=== PATIENT | male | born 1955 | race Caucasian/White ===

== ENCOUNTER 2020-02-07 11:00 | Emergency (ER) | payer BC, SELFPAY ==
[2020-02-07 11:41] VITALS: BP 122/85; PULSE 64; RESP 20; TEMP 36.7; O2SAT 100
--- NOTE | 2020-02-07 11:49 | ED.GENADULT ---
HPI - General Adult General Chief complaint: Eye Problems Stated complaint: fb left eye Time Seen by Provider: 02/07/20 11:49 Source: patient Mode of arrival: ambulatory Limitations: no limitations History of Present Illness HPI narrative: 64-year-old male patient presents to the [facility] with complaints of left eye pain and sensation of foreign body. Patient states that he has had this pain for about 2 days now. 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 Patient states he has tried flushing the eye multiple times. Patient states that he is not having any vision changes but does have a sensation of a foreign body to the eye with slight pain. Patient does wear glasses but denies wearing contacts. Related Data Home Medications Medication Instructions Recorded Confirmed amlodipine 10 mg DAILY 02/07/20 02/07/20 lisinopril 5 mg DAILY 02/07/20 02/07/20 rosuvastatin 10 mg DAILY 02/07/20 02/07/20 Allergies Allergy/AdvReac Type Severity Reaction Status Date / Time No Known Allergies Allergy Verified 09/12/16 14:46 Review of Systems Review of Systems: Narrative: CONSTITUTIONAL: Denies fever, chills, or sweats. EYES: Denies visual changes, positive left eye sensation of foreign body ENT: Denies rhinorrhea, congestion, sore throat, or otalgia. CARDIOVASCULAR: Denies chest pain, palpitations, or edema. RESPIRATORY: Denies cough or dyspnea. GASTROINTESTINAL: Denies abdominal pain, nausea, vomiting, or diarrhea. GENITOURINARY: Denies dysuria or hematuria. SKIN: Denies rash or itching. MUSCULOSKELETAL: Denies back pain, joint pain, or myalgia. NEUROLOGIC: Denies headache, numbness, or weakness. PSYCHIATRIC: Denies anxiety or depression. [facility] Family History Family History Father Family history of coronary artery disease Grandparent Diabetes mellitus Other Hypertension Social History Social History Smoking status: Never smoker Alcohol intake: current Gender identity (if verbalized by the patient): Male Comments At the time of my signature I agree with nursing past medical history, surgical, social, and family history. There is no relevant family history pertinent to the presenting complaint. Exam Narrative: Exam Narrative: GENERAL: Well-appearing, well-nourished, and in no acute distress. HEAD: Normocephalic, atraumatic. EYES: PERRLA and EOM intact without limitation or complaint of pain, no periorbital soft tissue swelling ,no erythema, warmth or tenderness noted, no obvious deformity. No crusting or swelling.clear tearing of left eye.No photophobia. No nystagmus No FB or lesion on lid eversion. Patient does have a small abrasion noted to the cornea at the 9:00 area., no obvious FB or hyphens/hypopyon. No injection to sclera. Lids and lashes clear. ENT: Nares clear, no rhinorrhea or epistaxis. Mucous membranes moist. NECK: Supple. No lymphadenopathy CHEST: Clear to auscultation. No respiratory distress. HEART: Regular rate and rhythm. No murmur heard. Normal peripheral pulses. ABDOMEN: Soft, nontender, nondistended, normal active bowel sounds. EXTREMITIES: Normal range of motion. No edema. SKIN: Warm, dry, no rash. NEURO: No focal deficits. Alert and oriented x3. Course Vital Signs Vital signs: Vital Signs Temperature 36.7 C 02/07/20 11:41 Pulse Rate 64 02/07/20 11:41 Respiratory Rate 20 02/07/20 11:41 Blood Pressure 122/85 02/07/20 11:41 Pulse Oximetry 100 02/07/20 11:41 Temperature 36.7 C 02/07/20 11:41 Pulse Rate 64 02/07/20 11:41 Respiratory Rate 20 02/07/20 11:41 Blood Pressure 122/85 02/07/20 11:41 Pulse Oximetry 100 02/07/20 11:41 Vital signs reviewed. Procedures Other Procedure Procedure 1: Other Procedure: 1 drop of tetracaine was placed in the left eye. Left eye was dyed wit
== END 2020-02-07 11:59 | disposition home or self-care (01) ==
PROVIDERS: Emergency Provider Nurse Practitioner Family; PCP Family Medicine
DX: S05.02XA Injury of conjunctiva and corneal abrasion without foreign body, left eye, initial encounter (principal); X58.XXXA Exposure to other specified factors, initial encounter; I25.10 Atherosclerotic heart disease of native coronary artery without angina pectoris; E78.00 Pure hypercholesterolemia, unspecified; I10 Essential (primary) hypertension
CPT/HCPCS: 99213; A9270; G0463

== ENCOUNTER 2020-07-24 10:22 | Emergency (ER) | payer BC, SELFPAY ==
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
[2020-07-24 10:29] VITALS: BP 137/92; PULSE 78; RESP 18; TEMP 36.1; O2SAT 98
--- NOTE | 2020-07-24 11:23 | ECG_ITS ---
Measurements Intervals [place] Rate: 74 P: 55 [place]: 180 QRS: -24 QRSD: 76 T: 12 QT: 335 QTc: 372 Interpretive Statements SINUS RHYTHM DELAYED PRECORDIAL R/S TRANSITION BASELINE ARTIFACT- I, III, AVL, V2-V4 BORDERLINE ECG Electronically Signed On 07-24-2020 13:41:38 CDT by Mariano Harrison D.O.
[2020-07-24 11:34] LABS: Basophils Percent Auto 0.3 % (0.2-1.2); Eosinophils Percent Auto 0.1 % (0-4.4); Hematocrit 42.1 % (42.0-52.0); Hemoglobin 14.3 g/dL (14.0-18.0); Immature Granulocyte Absolute 0.03 K/mm3 (0.00-0.031); Immature Granulocyte Percent A 0.3 % (0-0.5); Lymphocytes Absolute Auto 0.63 K/mm3 (0.9-3.2); Lymphocytes Percent Auto 6.6 % (18.3-44.2); Mean Corpuscular Hemoglobin 30.9 pg (26-34); Mean Corpuscular Volume 90.9 fl (80-100); Mean Platelet Volume 10.1 fl (7.4-10.4); Monocytes Absolute Auto 0.9 K/mm3 (0.1-0.6); Monocytes Percent Auto 8.9 % (2.6-8.5); Neutrophils Percent Auto 83.8 % (45.5-73.1); Platelet Count Result 218 k/mm3 (150-375); Red Blood Count 4.63 M/mm3 (4.6-6.20); Red Cell Distribution Width 12.5 % (11.5-14.5); White Blood Count 9.5 K/mm3 (4.5-10.0)
[2020-07-24 11:44] LABS: Anion Gap 7 mmol/L (8-16); Blood Urea Nitrogen 25 mg/dL (9-20); Calcium 8.5 mg/dL (8.4-10.2); Carbon Dioxide 25 mmol/L (22-30); Chloride 105 mmol/L (98-107); Estimated Glomerular Filt Rate > 60; Glucose 109 mg/dL (75-110); Potassium 4.9 mmol/L (3.4-5.0); Sodium 137 mmol/L (137-145)
[2020-07-24] MEDS: SODIUM CHLORIDE 0.9% IV 1,000 ML 999 ML IV CONT (11:48)
[2020-07-24] MEDS: MORPHINE SULFATE 4 MG/ML INJ IV PUSH ×3 (11:49→20:23)
[2020-07-24] MEDS: ONDANSETRON INJ 4 MG/2 ML VIAL IV PUSH (11:49)
[2020-07-24 11:55] VITALS: BP 132/86; PULSE 79; RESP 18; O2SAT 95
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
[2020-07-24 14:11] VITALS: BP 122/89; PULSE 82; RESP 18; O2SAT 96
[2020-07-24 16:12] VITALS: BP 130/76; PULSE 78; RESP 18; O2SAT 95
--- NOTE | 2020-07-24 19:52 | PC.NURSE ---
per GD: Dariel called @ 1707 to transport patient to [facility]. ETA [id number]. per GD: Update @ 1814...ETA 1914 19:36, I called for status...ETA no 30 - 45 minutes.
--- NOTE | 2020-07-24 20:26 | PC.NURSE ---
EMS arrives to pick patient up and transfer him to [facility].
[2020-07-24 20:27] VITALS: BP 131/84; PULSE 73; RESP 18; O2SAT 95
== END 2020-07-24 20:29 | disposition short-term general hospital (02) ==
PROVIDERS: Emergency Medicine Emergency Medical Services; Emergency Provider Emergency Medicine; PCP Family Medicine
DX: S72.011A Unspecified intracapsular fracture of right femur, initial encounter for closed fracture (principal); I10 Essential (primary) hypertension; V18.4XXA Pedal cycle driver injured in noncollision transport accident in traffic accident, initial encounter; Y93.55 Activity, bike riding
CPT/HCPCS: 36415; 73502; 80048; 85025; 93005; 96361; 96365; 96375; 96376; 99285; J0131; J2270; J2405; J7030

== ENCOUNTER → 2021-06-22 14:13 | Outpatient (REF) | payer BC, SELFPAY | LOC: ANHLAB 14:13 | PROVIDERS: PCP Family Medicine; Visit Provider Nurse Practitioner | DX: L57.0 Actinic keratosis (principal) | CPT/HCPCS: 88305 ==

== ENCOUNTER → 2022-01-08 00:46 | Outpatient (CLI) | payer MEDICARE, OTHER, SELFPAY ==
[2022-01-08 12:59] LABS: SARS-CoV-2 RNA PCR Negative
== END ==
PROVIDERS: PCP Family Medicine; Visit Provider Internal Medicine Gastroenterology
DX: Z01.812 Encounter for preprocedural laboratory examination (principal); Z20.822 Contact with and (suspected) exposure to COVID-19
CPT/HCPCS: C9803; U0003; U0005

== ENCOUNTER 2022-01-11 00:34 | Day surgery (SDC) | payer MEDICARE, OTHER, SELFPAY ==
[2021-12-28 14:07] VITALS: BMI 26.4
--- NOTE | 2022-01-10 13:17 | PM.HPGS ---
History of Present Illness History of Present Illness Consent: Risks, benefits, and alternatives have been discussed and questions answered. Patient agrees to proceed with procedure. Chief complaint: hx of colon polyps Narrative: Elijah German is a 66 year old male who was referred for colon cancer screening. He has a history of having had polyps removed previously. Review of Systems Review of Systems: All systems reviewed & are unremarkable except as noted in HPI and below PMFSH Past Medical History Medical History BMI 26.0-26.9,adult BMI 27.0-27.9,adult Hypertension Surgical History Surgical History History of hip replacement 07/2020 History of left shoulder replacement 2019 History of orthopedic surgery Family History Family History Father Family history of coronary artery disease Grandparent Diabetes mellitus Other Hypertension Social History Social History Smoking status: Never smoker Second hand tobacco smoke exposure: No Alcohol intake: current Drinks per week: 8 Substance use: never Substance use type: does not use Living arrangements: with family Gender identity (if verbalized by the patient): Male Spiritual care concerns: No Meds Home Medications and Allergies Home Medications Medication Instructions Recorded Confirmed Type amlodipine 10 mg DAILY 02/07/20 01/11/22 History lisinopril 5 mg DAILY 02/07/20 01/11/22 History rosuvastatin 10 mg DAILY 02/07/20 01/11/22 History Allergies Allergy/AdvReac Type Severity Reaction Status Date / Time No Known Allergies Allergy Verified 01/11/22 09:49 Exam Resp: Auscultation: clear to auscultation bilaterally Cardio: Rate: regular rate Rhythm: regular rhythm GI: GI Palp: Yes Soft to palpation and No Tenderness to palpation present (GI) Assessment and Plan Assessment and plan (1) Colon cancer screening: Code(s): Z12.11 - Encounter for screening for malignant neoplasm of colon Status: Acute Assessment and Plan: Colonoscopy with possible biopsy or polypectomy or cautery or injection of substances.
[2022-01-11 09:50] VITALS: BP 138/93; PULSE 98; RESP 20; TEMP 36.6; O2SAT 97; BMI 26.1
[2022-01-11] MEDS: LACTATED RINGERS 1,000 ML 150 ML IV CONT ×2 (09:53→11:15)
--- NOTE | 2022-01-11 11:01 | WPDANESEPPF ---
Anes - Initial Pre Proc Eval Procedure: Operation Date: 01/11/22 11:00 Proposed Procedures p Screening Colonoscopy - Joseluis Urbina MD Date/Time: 01/11/22 11:01 Surgeon: Joseluis Urbina MD Pre Op Diagnosis: hx of colon polyps Patient Data Age: 66 Gender: M Height: 1.78 m Weight: 82.6 kg Last Vital Signs Temp 97.8 F 01/11/22 09:50 Pulse 98 01/11/22 09:50 Resp 20 01/11/22 09:50 BP 138/93 H 01/11/22 09:50 Pulse Ox 97 01/11/22 09:50 Allergies Allergy/AdvReac Type Severity Reaction Status Date / Time No Known Allergies Allergy Verified 01/11/22 09:49 Home Medications Medication Instructions Recorded Confirmed Type amlodipine 10 mg DAILY 02/07/20 01/11/22 History lisinopril 5 mg DAILY 02/07/20 01/11/22 History rosuvastatin 10 mg DAILY 02/07/20 01/11/22 History Patient hx anesthesia problems: none Family hx anesthesia problems: none Results Review: All pre-operative results and documents have been reviewed as part of the pre-operative evaluation. ON LICENSE OF [facility] Past Medical History Medical History BMI 26.0-26.9,adult BMI 27.0-27.9,adult Hypertension Surgical History Surgical History History of hip replacement 07/2020 History of left shoulder replacement 2019 History of orthopedic surgery Family History Family History Father Family history of coronary artery disease Grandparent Diabetes mellitus Other Hypertension Social History Social History Smoking status: Never smoker Second hand tobacco smoke exposure: No Alcohol intake: current Drinks per week: 8 Substance use: never Substance use type: does not use Living arrangements: with family Gender identity (if verbalized by the patient): Male Spiritual care concerns: No Anes - Eval Final PreProcedure Day of Procedure 01/11/22 11:01 Patient weight: normal Heart: regular rate and rhythm Lungs: clear to auscultation Airway: Mallampati scale class II Neurological: alert and oriented Last oral intake: >/= 8 hours ASA classification: III Emergent: no Anesthetic plan: proceed Anesthesia type and monitoring: general GIVS and standard monitoring Results Review: All pre-operative results and documents have been reviewed as part of the pre-operative evaluation. Informed Consent: The patient's anesthetic plan and its attendant risks and benefits were discussed with the patient/family/POA. Questions were solicited and answers provided to the satisfaction of the patient/family/POA.
[2022-01-11 11:31] VITALS: BP 117/72; PULSE 67; RESP 17; O2SAT 97
[2022-01-11 11:41] VITALS: BP 122/68; PULSE 58; RESP 15; O2SAT 100
[2022-01-11 11:51] VITALS: BP 107/83; PULSE 57; RESP 17; O2SAT 97
== END 2022-01-11 11:52 | disposition home or self-care (01) ==
PROVIDERS: PCP Family Medicine; Visit Provider Internal Medicine Gastroenterology
PROC: 0DJD8ZZ Inspection of Lower Intestinal Tract, Via Natural or Artificial Opening Endoscopic (ICD-10-PCS; CPT 45378; principal; 2022-01-11 11:00)
DX: Z12.11 Encounter for screening for malignant neoplasm of colon (principal); D12.0 Benign neoplasm of cecum; I10 Essential (primary) hypertension
CPT/HCPCS: 45384; 88305; J2704; J7120

== ENCOUNTER 2022-02-15 10:02 | Emergency (ER) | payer MEDICARE, OTHER, SELFPAY ==
--- NOTE | 2022-02-15 10:14 | ED.WOUNDLAC ---
HPI - Wound/Laceration General Chief Complaint: Wound/Laceration Stated Complaint: Cut Finger Lt Hand Time Seen by Provider: 02/15/22 10:14 Source: patient Mode of arrival: ambulatory Limitations: no limitations History of Present Illness HPI narrative: 66-year-old male presented for complaint of laceration to left hand, onset today approximately 3 hours prior to arrival. He states he cut his left index finger with a razor while trimming siding. He immediately wrapped it with gauze and tape. Denies numbness, tingling, weakness of the extremity. He is not on blood thinners. Unknown last tetanus. Related Data Home Medications Medication Instructions Recorded Confirmed amlodipine 10 mg DAILY 02/07/20 02/15/22 lisinopril 5 mg DAILY 02/07/20 02/15/22 rosuvastatin 10 mg DAILY 02/07/20 02/15/22 Allergies Allergy/AdvReac Type Severity Reaction Status Date / Time No Known Allergies Allergy Verified 02/15/22 10:05 Review of Systems Review of Systems: CONSTITUTIONAL: Denies body aches, fever, chills, or sweats. EYES: Denies visual changes, redness, or discharge. ENT: Denies rhinorrhea, congestion, sore throat, or otalgia. CARDIOVASCULAR: Denies chest pain, palpitations, or edema. RESPIRATORY: Denies cough or dyspnea. GASTROINTESTINAL: Denies abdominal pain, nausea, vomiting, or diarrhea. GENITOURINARY: Denies dysuria or hematuria. SKIN: laceration left index finger MUSCULOSKELETAL: Denies back pain, joint pain, or myalgia. NEUROLOGIC: Denies headache, numbness, tingling, or weakness. PSYCH: Denies depression or anxiety. [facility] Past Medical History Medical History BMI 26.0-26.9,adult BMI 27.0-27.9,adult Hypertension Surgical History Surgical History History of hip replacement 07/2020 History of left shoulder replacement 2019 History of orthopedic surgery Family History Family History Father Family history of coronary artery disease Grandparent Diabetes mellitus Other Hypertension Social History Social History Smoking status: Never smoker Second hand tobacco smoke exposure: No Alcohol intake: current Drinks per week: 8 Substance use: never Substance use type: does not use Gender identity (if verbalized by the patient): Male Spiritual care concerns: No Comments At time of signature, I have reviewed and agree with nursing past medical, surgical, social and family history unless otherwise noted. Please see nursing chart for further information. There is no relevant family history pertinent to the presenting complaint Exam Narrative: GENERAL: Well-appearing, in no acute distress. HEAD: Normocephalic, atraumatic. EYES: conjunctivae clear EOMI. ENT: Mucous membranes moist. Oropharynx normal NECK: Supple. No lymphadenopathy CHEST: Clear to auscultation. No respiratory distress. HEART: Regular rate and rhythm. SKIN: Warm, dry. Left hand with flap laceration approx 2cm over 2nd MCP; full ROM intact, sensation intact, pulse palpable, cap refill <3seconds NEURO: Alert and oriented x3. PSYCH: Normal mood and affect Course Course Emergency Course: Patient is aware of diagnosis, understands and agrees to treatment plan. Anticipatory guidance given. Patient agrees to follow-up as directed and is aware of reasons to seek care at the emergency department. Portions of this record may have been created with voice recognition software Level of Care: Express Care Visit Vital Signs Vital signs: Vital Signs Temperature 98.8 F 02/15/22 10:16 Pulse Rate 72 02/15/22 10:16 Respiratory Rate 18 02/15/22 10:16 Blood Pressure 145/97 H 02/15/22 10:16 Pulse Oximetry 97 02/15/22 10:16 Temperature 98.8 F 02/15/22 10:16 Pulse Rate 72 02/15/22 10:1
[2022-02-15 10:16] VITALS: BP 145/97; PULSE 72; RESP 18; TEMP 37.1; O2SAT 97
[2022-02-15] MEDS: TETANUS,DIPHTHERIA,AC PERTUSSIS ADULT (0.5 ML) BOOSTRIX IM (10:29)
[2022-02-15] MEDS: ACETAMINOPHEN 500 MG TABLET 1000 MG PO (10:29)
== END 2022-02-15 11:30 | disposition home or self-care (01) ==
PROVIDERS: Emergency Provider Nurse Practitioner Family; PCP Family Medicine
DX: S61.211A Laceration without foreign body of left index finger without damage to nail, initial encounter (principal); W26.8XXA Contact with other sharp object(s), not elsewhere classified, initial encounter; Z23 Encounter for immunization; I10 Essential (primary) hypertension; Z96.642 Presence of left artificial hip joint; Z96.612 Presence of left artificial shoulder joint
CPT/HCPCS: 12001; 90471; 90715; 99213; A9270; G0463

== ENCOUNTER 2022-07-20 07:24 | Emergency (ER) | payer MEDICARE, OTHER, SELFPAY ==
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
[2022-07-20 07:29] VITALS: BP 142/100; PULSE 84; RESP 18; TEMP 36.6; O2SAT 100
[2022-07-20] MEDS: ACETAMINOPHEN 500 MG TABLET 1000 MG PO (07:39)
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
[2022-07-20] MEDS: oxyCODONE HCL (*CRX) 5 MG TAB IR PO (09:13)
[2022-07-20 09:17] VITALS: BP 140/83; PULSE 62; RESP 18; O2SAT 96
== END 2022-07-20 10:09 | disposition home or self-care (01) ==
PROVIDERS: Emergency Provider Emergency Medicine; PCP Family Medicine
DX: S42.022A Displaced fracture of shaft of left clavicle, initial encounter for closed fracture (principal); V18.0XXA Pedal cycle driver injured in noncollision transport accident in nontraffic accident, initial encounter; I10 Essential (primary) hypertension; Z96.612 Presence of left artificial shoulder joint; Z96.649 Presence of unspecified artificial hip joint
CPT/HCPCS: 71046; 73030; 99284; A4565; A9270

== ENCOUNTER → 2023-03-21 08:11 | Outpatient (CLI) | payer MEDICARE, OTHER, SELFPAY ==
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
== END ==
PROVIDERS: PCP Family Medicine; Visit Provider Nurse Practitioner Family
DX: M19.032 Primary osteoarthritis, left wrist (principal); S52.572D Other intraarticular fracture of lower end of left radius, subsequent encounter for closed fracture with routine healing; X58.XXXD Exposure to other specified factors, subsequent encounter
CPT/HCPCS: 73110

== ENCOUNTER 2023-07-14 15:37 | Emergency (ER) | payer MEDICARE, OTHER, SELFPAY ==
[2023-07-14 15:40] VITALS: BP 115/85; PULSE 65; RESP 16; TEMP 36.4; O2SAT 97
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
== END 2023-07-14 16:02 | disposition home or self-care (01) ==
PROVIDERS: Emergency Provider Nurse Practitioner Family; PCP Family Medicine
DX: S90.562A Insect bite (nonvenomous), left ankle, initial encounter (principal); W57.XXXA Bitten or stung by nonvenomous insect and other nonvenomous arthropods, initial encounter; M19.011 Primary osteoarthritis, right shoulder; I10 Essential (primary) hypertension; Z96.642 Presence of left artificial hip joint; Z96.612 Presence of left artificial shoulder joint
CPT/HCPCS: 99213; G0463

== ENCOUNTER 2023-08-15 13:09 | Outpatient (CLI) | payer MEDICARE, OTHER, SELFPAY ==
[2023-08-15 13:49] LABS: Hematocrit 44.8 % (42.0-52.0); Hemoglobin 14.8 g/dL (14.0-18.0); Mean Corpuscular Hemoglobin 30.8 pg (26-34); Mean Corpuscular Volume 93.1 fl (80-100); Mean Platelet Volume 10.3 fl (7.4-10.4); Platelet Count Result 262 k/mm3 (150-375); Red Blood Count 4.81 M/mm3 (4.6-6.20); Red Cell Distribution Width 12.1 % (11.5-14.5); White Blood Count 8.2 K/mm3 (4.5-10.0)
[2023-08-15 15:09] LABS: Alanine Aminotransferase 36 U/L (6-50); Albumin Level 4.6 g/dL (3.5-5.1); Alkaline Phosphatase 48 U/L (38-126); Anion Gap 9 mmol/L (8-16); Aspartate Amino Transferase 41 U/L (17-59); Bilirubin,Total 0.7 mg/dL (0.2-1.3); Blood Urea Nitrogen 16 mg/dL (9-20); Carbon Dioxide 27 mmol/L (22-30); Chloride 101 mmol/L (98-107); Cholesterol 181 mg/dL (0-200); Estimated Glomerular Filt Rate > 60; Glucose 107 mg/dL (65-110); HDL Direct 53 mg/dL; Potassium 4.8 mmol/L (3.4-5.0); Sodium 137 mmol/L (137-145); Triglycerides 107 mg/dL (<150)
[2023-08-15 15:16] LABS: LDL Cholesterol Direct 102 mg/dL
[2023-08-16 13:01] LABS: Prostate Specific Antigen 1.1 ng/mL (< OR = 4.0)
== END 2023-08-15 13:10 | disposition home or self-care (01) ==
LOC: ANHLAB 13:11
PROVIDERS: PCP Family Medicine; Visit Provider Nurse Practitioner Family
DX: H54.61 Unqualified visual loss, right eye, normal vision left eye (principal); I10 Essential (primary) hypertension; R55 Syncope and collapse; Z12.5 Encounter for screening for malignant neoplasm of prostate; E66.3 Overweight
CPT/HCPCS: 36415; 80053; 80061; 84153; 84443; 85027; G0103

== ENCOUNTER 2024-02-01 08:44 | Emergency (ER) | payer MEDICARE, OTHER, SELFPAY ==
--- NOTE | 2024-02-01 09:08 | ED.URI ---
HPI - URI/Sore Throat General Chief Complaint: Upper Respiratory Infection Stated Complaint: sorethroat,earache Time Seen by Provider: 02/01/24 09:06 Source: patient Mode of arrival: ambulatory Limitations: no limitations History of Present Illness HPI Narrative: Elijah is a 68-year-old male patient presenting to the clinic today with complaints of sore throat, congestion, and right ear pain x1 day. He reports symptoms started yesterday. Started taking leftover Z-Aldo. Denies any fever, chills, body aches MD elicited complaint: sore throat and nasal congestion Related Data Home Medications Medication Instructions Recorded Confirmed amlodipine 10 mg tablet 10 mg DAILY 02/07/20 08/15/23 lisinopril 5 mg tablet 5 mg DAILY 02/07/20 08/15/23 rosuvastatin 10 mg tablet 10 mg DAILY 02/07/20 08/15/23 aspirin 81 mg tablet,delayed mg 02/01/24 02/01/24 release clopidogrel 75 mg tablet mg 02/01/24 Allergies Allergy/AdvReac Type Severity Reaction Status Date / Time No Known Allergies Allergy Verified 02/01/24 09:16 Review of Systems Review of Systems: Pertinent positives per HPI. Patient denies any fever, chills, rash, headache, visual changes, dizziness, cough, shortness of breath, chest pain, palpitations, nausea, vomiting, diarrhea, constipation, abdominal pain, or any urinary issues. [facility] Past Medical History Medical History Arthritis of right shoulder region BMI 26.0-26.9,adult BMI 27.0-27.9,adult Dietary counseling and surveillance (07/18/17) Distal radius fracture, left H/O clavicle fracture Hypertension Impingement syndrome, shoulder, left Overweight Sciatica, left side Surgical History Surgical History History of hip replacement left -07/2020 History of left shoulder replacement 2019 History of orthopedic surgery left clavicle Family History Family History Father Family history of coronary artery disease Grandparent Diabetes mellitus Mother Other Hypertension Social History Social History (Reviewed 02/01/24 @ 09:08 by RAMYA Thorpe Smoking status: Never smoker Second hand tobacco smoke exposure: No Alcohol intake: current Drinks per week: 8 Substance use: never Substance use type: does not use Lack of Transportation: No Lack of Food: Never True Current Housing: I Have Housing Concerned About Future Housing: No Difficulty Paying Gas/Electric Bills: No Difficulty Paying for Meds: No Currently Unemployed: No Education: Associate Degree Difficulty w/ Childcare or Family Care: No Living arrangements: with family Occupation/Education: occupation 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 There is no relevant family history pertinent to the patient complaint. Exam Narrative: General: Well-developed, well nourished, in no apparent distress Head: Normocephalic, atraumatic Eyes: Pupils equally round and reactive to light bilaterally, EOM intact, sclera and conjunctive clear, no discharge, lids normal Ears: Left tMs intact and clear right TM intact clear, mild bulging, ear canals clear, no drainage, grossly hearing normal. Nose: Nares patent, clear nasal discharge, no inflammation, no sinus tenderness. Mouth: Oral pharynx without lesions or masses, good dentition, MMM. Postnasal drip Neck: Supple, trachea midline, no enlargement of anterior or posterior cervical nodes, no thyroid masses or goiter palpable. Cardio: Regular rate and rhythm, s1 and s2 normal, no murmur appreciated. Resp: Clear to auscultat
[2024-02-01 09:15] VITALS: BP 122/82; PULSE 67; RESP 18; TEMP 36.7; O2SAT 97
[2024-02-01 09:17] VITALS: BP 122/82; PULSE 67; RESP 18; TEMP 36.7; O2SAT 97
== END 2024-02-01 09:38 | disposition home or self-care (01) ==
PROVIDERS: Emergency Provider Nurse Practitioner Family; PCP Family Medicine
DX: J06.9 Acute upper respiratory infection, unspecified (principal); J02.9 Acute pharyngitis, unspecified; H69.91 Unspecified Eustachian tube disorder, right ear; M19.011 Primary osteoarthritis, right shoulder; I10 Essential (primary) hypertension; Z96.642 Presence of left artificial hip joint; Z96.612 Presence of left artificial shoulder joint; Z79.82 Long term (current) use of aspirin
CPT/HCPCS: 87081; 87880; 99213; G0463

== ENCOUNTER 2024-02-06 09:46 | Outpatient (CLI) | payer MEDICARE, OTHER, SELFPAY ==
--- NOTE | ~2024-02-06 | XR_ITS ---
Right foot Technique: AP, oblique, and lateral views were obtained. Clinical History: Injury Findings: No acute fracture or dislocation is seen. Osseous alignment is anatomic. There is moderate to advanced degenerative change of the tibiotalar joint with orthopedic screw the medial malleolus. S oft tissues are unremarkable. Impression: No acute abnormality midfoot. 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 Reviewed, dictated and finalized at location . 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
--- NOTE | ~2024-02-06 | XR_ITS ---
Right ankle Technique: AP, oblique, and lateral views were obtained. Clinical History: Injury Findings: No acute fracture or dislocation is seen. Orthopedic screw present at the medial malleolus. . There is moderate degenerative change of the tibiotalar joint. Soft tissues are otherwise unremarka ble. Impression: Moderate degenerative change of the tibiotalar joint. Orthopedic screw the medial malleolus from remote ORIF. 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 Orthopedic screw the medial malleolus from remote ORIF.
== END 2024-02-06 09:47 ==
PROVIDERS: PCP Nurse Practitioner Family; Visit Provider Nurse Practitioner Family
DX: M19.071 Primary osteoarthritis, right ankle and foot (principal); Z96.698 Presence of other orthopedic joint implants
CPT/HCPCS: 73610; 73630

== ENCOUNTER 2024-02-21 08:37 | Outpatient (CLI) | payer MEDICARE, OTHER, SELFPAY ==
--- NOTE | ~2024-02-21 | CT_ITS ---
EXAMINATION: CT abdomen pelvis w con DATE: 02/21/2024 09:02 INDICATION: Unilateral inguinal hernia without obstruction TECHNIQUE: Computed tomography (CT) of the abdomen and pelvis was performed with 100 CC Omnipaque 350 intravenous contrast. Automated exposure control and iterative reconstruction technique were employe d. Exam dose: 644.06 mGy-cm total exam DLP. COMPARISON: None. FINDINGS: The lung bases are clear of infiltrate or consolidation. Cardiomegaly. No pericardial or pl eural effusion. Hepatic steatosis. No hepatic space-occupying mass lesion is detected. The gallbladder is unremarkabl e. No bile duct or pancreatic duct dilatation or pancreatic mass lesion or calcification. Normal sple dai size. Normal morphology of the adrenal glands. 1 cm upper pole right renal cyst. The kidneys are otherwise unremarkable. No urinary tract calculus o r hydroureteronephrosis. Normal caliber of the abdominal aorta. No intraperitoneal or retroperitoneal or pelvic mass lesion or adenopathy or ascites. Moderate prostate enlargement. The urinary bladder is partially evacuated and there is considerable s treak artifact in the lower pelvic area from right hip arthroplasty. Mild sigmoid colon diverticulosis; no evidence of diverticulitis. No bowel obstruction, pneumatosis o r intraperitoneal free air. Normal appendix. Small fat-containing umbilical hernia. Status post right hip arthroplasty. No inguinal hernias are evident. Benign T9 vertebral body hemangioma. Degenerative spurring of the lower thoracic spine. Moderately se shemar degenerative disc disease at L5-S1. Osteopenia. IMPRESSION: Cardiomegaly Hepatic steatosis 1 cm right renal cyst Moderate prostatomegaly Mild sigmoid colon diverticulosis; no evidence of diverticulitis Right hip arthroplasty Reviewed, dictated and finalized at Location A. Reviewed, dictated and finalized at location B.
[2024-02-21 08:59] LABS: Estimated Glomerular Filt Rate > 60
== END 2024-02-21 08:38 | disposition home or self-care (01) ==
PROVIDERS: PCP Nurse Practitioner Family; Visit Provider Nurse Practitioner Family
DX: K40.90 Unilateral inguinal hernia, without obstruction or gangrene, not specified as recurrent (principal); I51.7 Cardiomegaly; K76.0 Fatty (change of) liver, not elsewhere classified; N40.0 Benign prostatic hyperplasia without lower urinary tract symptoms; K57.30 Diverticulosis of large intestine without perforation or abscess without bleeding; Z96.641 Presence of right artificial hip joint
CPT/HCPCS: 74177; Q9967

== ENCOUNTER 2024-12-23 08:11 | Outpatient (CLI) | payer MEDICARE, OTHER, SELFPAY ==
[2024-12-23 09:00] LABS: Hematocrit 42.2 % (42.0-52.0); Hemoglobin 13.5 g/dL (14.0-18.0); Mean Corpuscular Hemoglobin 29.8 pg (26-34); Mean Corpuscular Volume 93.2 fl (80-100); Mean Platelet Volume 9.7 fl (7.4-10.4); Platelet Count Result 292 k/mm3 (150-375); Red Blood Count 4.53 M/mm3 (4.6-6.20); Red Cell Distribution Width 12.4 % (11.5-14.5); White Blood Count 6.1 K/mm3 (4.5-10.0)
[2024-12-23 09:15] LABS: Alanine Aminotransferase 33 U/L (6-50); Albumin Level 4.4 g/dL (3.5-5.1); Alkaline Phosphatase 66 U/L (38-126); Anion Gap 8 mmol/L (4-12); Aspartate Amino Transferase 30 U/L (17-59); Bilirubin,Total 0.5 mg/dL (0.2-1.3); Blood Urea Nitrogen 14 mg/dL (9-20); Calcium 9.1 mg/dL (8.4-10.2); Carbon Dioxide 29 mmol/L (22-30); Chloride 102 mmol/L (98-107); Cholesterol 180 mg/dL (0-200); Estimated Glomerular Filt Rate > 60; Glucose 113 mg/dL (65-110); HDL Direct 51 mg/dL; Potassium 4.7 mmol/L (3.4-5.0); Sodium 139 mmol/L (137-145); Triglycerides 76 mg/dL (<150)
[2024-12-23 09:25] LABS: LDL Cholesterol Direct 118 mg/dL
[2024-12-23 09:40] LABS: Creatinine Urine 86.6 mg/dL
[2024-12-23 09:51] LABS: MALB Creatinine Ratio < 6.9 mg/g (0-30); Microalbumin Urine Random < 6.0 mg/L (0-16.7)
--- OUTSIDE RECORDS SUMMARY | 2024-12-24 21:38 | XMS_ITS | Continuity of Care Document ---
Author Organization [facility] Address [address] [place] [address] Phone Care Team Providers Care Shell Mold Bonder Name Role Phone Cintron DARY LOPEZ, Oscar Unavailable Unavailab le Allergies, Adverse Reactions, Alerts Substance Reaction Status Criticality LEVONORGESTREL-ETHINYL ESTRADIOL Active No Information Medications Medication Instructions Dosage Effective Dates (start - stop) Status Comments amoxicillin 500 mg tablet take 4 tablet by oral route 2 hours prior to dental visit - Active aspirin 81 mg chewable tablet chew 1 tablet by oral route every day 81 MG - Active Vitamin B-6 250 mg tablet - Active Crestor 10 mg tablet take 1 tablet by oral route every day 10 MG - Active amoxicillin 500 mg tablet take 4 tablet by oral route 2 hours prior to dental visit - No Longer Active Procedures Procedure Date X-ray Exam, Femur 2 Views Global/Postop followup visit Disability Form X-ray Exam Hip Unilat With Pelvis When P erformed Min 4 Views Global/Postop followup visit Initial hospital care, moderate 020 Total Hip Replacement Global/Postop followup visit Global/Postop followup visit Wrist Brace Tital Acampo Arm Sling, Acampo w/ strap 3 Carpal tunnel release Office/outpatient visit,est, mod 2012 Nerve Conduction Studies; 06-08 3 EMG, each extrem w/nerve conduction; com plete Manual muscle testing, hand Office/outpatient visit,est, mod 2012 Office/outpatient visit,est, mod 2011 Office/outpatient visit,est, mod 2011 MRI of cervical spine, No Contrast Office/outpatient visit,est, mod 2011 X-ray exam of neck spine2-3 views Office/outpatient visit,est, mod 2010 Office consultation, low X-ray exam of neck spine2-3 views Advance Directives Directive Yes / No Effective Date File Name No Information Encounters Encounter Description Practice Location Reason(s) For Visit Diagnoses Date Provider Providers Copied on Encounter [facility], [address], [id number], [phone] [facility] No Information 1 Abdulaziz Moore. [address], [id number] , [place]. tel: [phone] [facility], [address], [id number], tel:[phone] [facility] No Information 1 Damion ho. [address], [id number] , [place]. tel: [phone] [facility], [address], [id number], [phone] [facility] Right Femur (chief complaint) Displaced fracture of base of neck of right femur, sequelaPresence of right artificial hip joint 0 Abdulaziz Moore. [address] [facility], [address], [id number] , [place]. tel:[phone] Referring Provider: Senthil Leon, [address] [facility] [address], [place], [address]. tel:[phone] [facility], [address] [address], [place], [place], [id number], [place] tel:[phone] [facility] No Information 0 Damion Az er. [address] [facility], [facility] [address], [place], [place], [id number] , [place]. tel:[phone] [facility], [address] [place] [address], [place], [place], [id number], [place] tel:[phone] [facility] Right Femur (chief complaint) Displaced fracture of base of neck of right femur, sequelaPresence of right artificial hip joint 0 Abdulaziz Moore. [address] [place] [address], [place] [address], [place], [place], [id number] , [place]. tel:[phone] Referring Provider: Senthil Leon, [address] [facility] [address] [facility], [place], [address]. tel:[phone] [facility], [address] [place] [address], [place], [place], [id number], [place] tel:[phone] [facility] Intracapsular fracture of right femur, initial encounter for closed fracture 0 Damion Az er. [address] [facility], [facility] [address], [place], [place], [id number] , [place]. tel:[phone] Initial hospital care, moderate [facility], [address] [place] [address], [place], [place], [id number], [place] tel:[phone] [facility] No Information 0 Damion Az er. [address] [facility], [facility] [address], [place], [place], [id number] , [place]. tel: [phone] Referring Provider: Senthil Leon, [address] [facility] [address], [place], [address]. tel:[phone] [facility], [address] [address], [place], [place], [id number], [place] tel:[phone] Carpal Tunnel Syndrome Mar-2 2-201 3 Strecker Randy. [address] [facility], [place] [address], [place], [place], [id number] , [place]. tel:[phone] Referring Provider: Senthil Leon, [address] [facility] [address], [place], [address]. tel:[phone] [facility], [address] [address], [place], [place], [id number], [place] tel:[phone] [facility] Carpal Tunnel Syndrome Mar-0 1-201 3 Strecker Randy. [address] [place] [address], [place], [place], [id number] , [place]. tel:[phone] Referring Provider: Senthil Leon, [address] [facility] [address] [facility], [place], [address]. tel:[phone], [address] [place] [address], [place], [place], [id number], [place] [phone] [facility] No Information Jan-2 0-201 3 Strecker Randy. [address] [place] [address], [place] [address], [place], [place], [id number] , [place]. tel:[phone] Referring Provider: Senthil Leon, [facility] [address], [place], [address]. tel:[phone] Office/outpa tient visit,est, mod [facility], [address] [place] [address], [place], [place], [id number], [place] tel:[phone] [facility] Carpal Tunnel Syndrome Feb-1 8-201 3 Strecker Randy. [address] [place] [address], [place] [address], [place], [place], [id number] , [place]. tel: [phone] Referring Provider: Michael Tong, [address] [facility] [address] [facility], [place], [address]. tel:[phone] [facility], [address] [address], [place], [place], [id number], [place] tel:[phone] [facility] Carpal Tunnel Syndrome Fe 3 Sanchez Bernardo er. [address] [facility], [place] [address], [place], [place], [id number] , [place]. tel: [phone] Referring Provider: Cathy Tong, [address] [place] [address], [place], [address]. tel:[phone] Office/outpa tient visit,est, [facility], [facility] [address], [place], [place], [id number], [place] [phone] [facility] BRACHIAL NEURITIS NOS 3 Ayaan Morgan. [address] [place] [address], [place], [place], [id number] , [place]. tel:[phone] Referring Provider: Senthil Leon, [address] [address], [place], [address]. tel:[phone] Office/outpa tient visit,est, [facility], [address] [address], [place], [place], [id number], [place] [phone] DISC DIS NEC/NOS-CERV 2 Abtori Morgan. [address] [place] [address], [place], [place], [id number] , [place]. tel:[phone] Referring Provider: Senthil Leon, [address] [address], [place], [address]. tel:[phone] Office/outpa tient visit,est, [facility], [address] [address], [place], [place], [id number], [place] tel:[phone] [facility] DISC DIS NEC/NOS-CERVPAI N IN LIMB Apr-1 0-201 2 Abeln Cathy. [address] [facility], [address], [place], [place], [id number] , [place]. tel:[phone] Referring Provider: Senthil Leon, [address] [facility] [address], [place], [address]. tel:[phone] [facility], [address] [facility] [address], [place], [place], [id number], [place] [phone] [facility] CERVICAL DISC DISPLACMNT Apr-0 2-201 2 [facility]. [address] [facility], [address], [place], [place], [id number] , [place]. tel: [phone] Referring Provider: Senthil Leon, [facility] [address], [place], [address]. tel:[phone] Office/outpa tient visit,est, [facility], [address] [facility] [address], [place], [place], [id number], [place] [phone] [facility] CERVICAL SPONDYLOSISBRAC HIAL NEURITIS NOSCERVICALGIA Apr-0 2-201 2 Abeln Cathy. [address] [facility], [facility] [address], [place], [place], [id number] , [place]. tel: [phone] Office/outpa tient visit,est, [facility], [address] [facility] [address], [place], [place], [id number], [place] [phone] [facility] CARPAL TUNNEL SYNDROME Cal- 5 1 Mone Padilla. [address] [facility], [facility] [address], [place], [place], [id number] , [place]. tel:[phone] Referring Provider: Nikos Rogers, [address] [facility], [place], [address]. tel:[phone] Office consultation , [facility], [address], [place], [place], [id number], [place] tel:[phone] [facility] MONONEURITIS ARM NOSCERVICALGIA 1 Mone Padilla. [address] [facility], [address], [place], [place], [address] , [place]. tel: [phone] Referring Provider: Nikos Rogers, [address] [facility], [place], [address]. tel:[phone] Family History Family Member Type Diagnosis Age At Onset Father Problem (finding) Cancer, unknown Father Problem (finding) Heart Disease Payers Payer name Insurance type Covered alliance party ID Authoraldoa fco(s) Leon Blue Cross Blue Shiel d [facility] [id number] Social History Type Description Quantity Date Captured Comments Alcohol Use Details Unknown Caffeine Use Details Unknown Tobacco Use Status No Information Smoking Status No Information Sex Male Chief Complaint And Reason For Visit No Information Reason For Referral Reason For Referral No Information Plan Of Treatment Date Type Action Status Referral Ordered: X-ray Exam Hip Unilat With Pelvis When Perf 2-3 View RT hip ordered Referral Ordered: X-ray Exam, Femur 2 Views RT femur ordered Referral Ordered: X-ray exam wrist, complete, 3+ views RT ordered Referral Ordered: EMG, each extrem w/nerve conduction; complete arm Appointment date/timeframe: 01/06/2013 ordered History Of Present Illness Encounter Date Complaint History Of Prese nt Illness Right Femur Elijah is a pleas ant 64 year old male who presents to the office today for ongoing post operative evaluation of his right posterior total hip arthroplasty placed for treatment of a right displaced femoral neck fracture, date of surgery 07/25/2020. He has finished physical therapy, and indicates that he has initiated a workout regimen on his own. He endorses mild soreness in the groin region with sit ups. The pain is managed without the use of interventions or therapeutics. He has resumed all presurgical activities without difficulty. He is ambulating without assistive device at today's office visit. Right Femur Elijah is a pleas ant 64 year old male who presents to the office today for initial post operative evaluation of his right posterior total hip arthroplasty placed for treatment of a right displaced femoral neck fracture, date of surgery 07/25/2020. Patient indicates compliance with the use of aspirin twice per day for DVT prophylaxis, and with maintaining posterior hip precaution. He is participating in physical therapy and feels that it is going very well. Patient endorsees mild intermittent pain in the groin with overexertion and strenuous workouts. Patient does not use any interventions for pain control. He would like to discuss return to biking, situps, and back accidents every morning. Patient is ambulating with the use of a cane. Functional Status Date Functional Assessmen t No Information Instructions Date Instruction Additional Infor mation No Information Assessments Type Assessment Date No Information Patient Care Teams Name Effective Dates (start - stop) Status Members No Information
--- OUTSIDE RECORDS SUMMARY | 2024-12-24 21:39 | XMS_ITS | Encounter Summary ---
Author Organization [facility] Address [address] [place] [address] Phone Care Team Providers Care Collections Clerk Name Role Phone Edward De León MD Primary Care Provider + [phone] Michael Bruno MD Unavailable [phone] Encounter Details Date Type Department Care Team (Late st Contact Info) Description 12/22/2024 Orders Only [facility] Orthopaedic Surgery [address] [place] [address] Morris Disla MD [address] [facility] [address] [place] [address] Social History Tobacco Use Types Packs/Day Years Used Date Smoking Tobacco: Never Passive Smoke Exposure: Never Smokeless Tobacco: Never Alcohol Use Standard Drinks/Week Comments Yes 42 (1 standard drink = 0.6 oz pu re alcohol) AUDIT-C Answer Date Recorded Q1: How often do you have a drink containing alc ohol? 2-3 times a week 11/20/2024 Q2: How many drinks containi ng alcohol do you have on a typical day when you are drinking? 3 or 4 11/20/2024 Q3: How often do you have si x or more drinks on one occasion? Less than monthly 11/20/2024 Personal Safety Answer Date Recorded Have you ever been in or are you currently in a harmful physical or emotional relationship or is someone making you feel afraid or unsafe? Denies 11/20/2024 Sex and Gender Information Value Date Recorded Sex Assigned at Not on file Legal Sex Male 10:38 AM [employer]IDENT[employer] Gender Identity Male 10/31/2024 2:37 PM [employer]IDENT[employer] Sexual Orientation Not on file documented as of this encounter Ordered Prescriptions Prescription Sig Dispense Quantity Refills Last Filled Start Date End Date celecoxib (CeleBREX) 100 mg capsule Take 1 capsule (100 mg total) by mouth 2 (two) times a day 60 capsule 12/22/2024 documented in this encounter Progress Notes * Nancy Cooper CMA - 12/22/2024 7:51 AM CST Ok per to fill patient request for celebrex [employer]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
--- OUTSIDE RECORDS SUMMARY | 2024-12-24 21:39 | XMS_ITS | Encounter Summary ---
Author Organization [facility] Address [address] [place] [address] Care Team Providers Care It Portfolio Manager Name Role Phone Edward De León MD Primary Care Provider + [phone] Michael Bruno MD Unavailable [phone] Reason for Visit * Reason Onset Date Comments Med Management 12/22/2024 Encounter Details Date Type Department Care Team (Late st Contact Info) Description 12/22/2024 Telephone [facility] Cardiology [address] [facility] [address] [address] Carlos Harris MD [address] [place] [address] [address] [place] [address] Med Management Social History Tobacco Use Types Packs/Day Years [...] on file Legal Sex Male 10:38 AM [employer] Gender Identity Male 10/31/2024 2:37 PM [employer] Sexual Orientation Not on file documented as of this encounter Miscellaneous Notes * Telephone Encounter - Shantel Mclain - 12/23/2024 10:02 AM [employer] Pt called and informed. Verbally understood. Ov planned on 02/03/25 r/s from vacation week in January. [employer] * Telephone Encounter - Carlos Harris MD - 12/23/2024 9:57 AM [employer] I think it is fine to take for a limited duration, such as a 1 month course postoperatively. If he needs more chronically a for a longer course would prefer nonsteroidal options such as Tylenol. Let him know but I think it is fine for limited duration [employer] * Telephone Encounter - Shantel Mclain - 12/22/2024 10:00 AM [employer] Pt calling to ask if ok to take Celebrex which was prescribed after shoulder surgery. Records in [facility]. Please advise. [employer] documented in this encounter Plan of Treatment Not on file documented as of this encounter Visit Diagnoses Not on filedocumented in this encounter Care Teams It Portfolio Manager Relationship Specialty Start Date End Date Edward De León MD PCP - General 12/27/17 Michael Bruno MD [address] [facility] [address] [place] [address] Consulting Physician Orthopedic Surgery 07/26/20 documented as of this encounter
--- OUTSIDE RECORDS SUMMARY | 2024-12-24 21:39 | XMS_ITS | Referral Summary ---
Author Organization [facility] D Address [address] [place] [address] Care Team Providers Care Fringe Maker Name Role Phone Edward De León MD Primary Care Provider Michael Bruno MD Unavailable [phone] Encounters Date Type Department Care Team Description 12/22/2024 Telephone [facility] Pulmonary [address] [address] 8th [place] [address] [place] [phone] Tara Turner CMA 12/22/2024 Telephone [facility] Medical Group Cardiology [address] [facility] [place] [address] Carlos Harris MD Med Management 12/22/2024 Orders Only [facility] Orthopaedic Surgery [address] 2nd Floor [address] [place] [phone] Morris Disla MD 12/18/2024 Telephone [facility] Orthopaedic Surgery [address] [facility] 2nd Floor [address] [place] [address] Morris Disla MD 12/09/2024 8:01 AM ROADS SUPERINTENDENT - 12/09/2024 11:59 PM ROADS SUPERINTENDENT Hospital Encounter [facility] [address] [facility] [place] [phone] S/P reverse total shoulder arthroplasty, right Discharge Disposition: Discharge to home or self care 12/09/2024 8:00 AM ROADS SUPERINTENDENT Office Visit [facility] Orthopaedic Surgery [address] [facility] [address] [place] [address] Morris Disla MD S/P reverse total shoulder arthroplasty, right (Primary Dx) 11/27/2024 8:07 AM ROADS SUPERINTENDENT - 11/27/2024 11:59 PM ROADS SUPERINTENDENT Hospital Encounter [facility] Pulmonary [address] [facility] [address] [place] [phone] Solitary pulmonary nodule Discharge Disposition: Discharge to home or self care 11/27/2024 9:30 AM ROADS SUPERINTENDENT Office Visit [facility] Pulmonary [address] [facility] 8th [place] [address] [place] [address] Jemma Marroquin NP Seasonal allergies (Primary Dx); Solitary pulmonary nodule; Immunization counseling; BLANCA (obstructive sleep apnea) 11/20/2024 9:51 AM ROADS SUPERINTENDENT - 11/21/2024 10:31 AM ROADS SUPERINTENDENT Hospital Encounter [facility] [address] [place] [address] Morris Disla MD Post-traumatic osteoarthritis of right shoulder (Primary Dx) Discharge Disposition: Discharge to home or self care 11/20/2024 1:45 PM ROADS SUPERINTENDENT - 11/20/2024 4:35 PM ROADS SUPERINTENDENT Surgery [facility] Operating Room [address] [place] [address] Morris Disla MD possible ARTHROPLASTY SHOULDER - REVERSE TOTAL 11/20/2024 1:17 PM ROADS SUPERINTENDENT Anesthesia Event [facility] Operating Room [address] [place] [address] Maria E Dickson MD Giuffrida, Miranda Adair, NP 11/18/2024 Documentation [facility] Orthopaedic Surgery [address] [facility] 2nd Floor [address] [place] [address] Gabriella Duggan RN 11/13/2024 Telephone [facility] Orthopaedic Surgery [address] [facility] 1st Floor [address] [place] [address] Morris Disla MD 11/12/2024 Orders Only [facility] Pulmonary [address] [facility] 8th [place] [address] [place] [address] Jemma Marroquin NP Solitary pulmonary nodule (Primary Dx) 11/02/2024 Documentation [facility] Orthopaedic Surgery [address] [facility] 2nd Floor [address] [place] [address] Gabriella Duggan RN 11/02/2024 6:50 AM ROADS SUPERINTENDENT Lab [facility] [address] [address] Preoperative testing; Post-traumatic osteoarthritis of right shoulder 11/02/2024 8:51 AM ROADS SUPERINTENDENT - 11/02/2024 11:59 PM ROADS SUPERINTENDENT Hospital Encounter [facility] Imaging [address] [address] Morris Disla MD Post-traumatic osteoarthritis of right shoulder Discharge Disposition: Discharge to home or self care 11/02/2024 7:30 AM ROADS SUPERINTENDENT Pre-Admission Testing [facility] Pre-Anesthesia Testing [address] [address] Preoperative testing (Primary Dx) 10/16/2024 Telephone [facility] Orthopaedic Surgery [address] [facility] 1st Floor [address] [place] [address] Morris Disla MD 10/15/2024 Documentation [facility] Orthopaedic Surgery [address] [facility] 2nd Floor [address] [place] [address] Gabriella Duggan RN 10/12/2024 8:08 AM ROADS SUPERINTENDENT - 10/12/2024 11:59 PM ROADS SUPERINTENDENT Hospital Encounter [facility]iology [facility] [address] [place] [address] Morris Disla MD Acute pain of right shoulder Discharge Disposition: Discharge to home or self care 10/12/2024 8:10 AM ROADS SUPERINTENDENT Office Visit [facility] Orthopaedic Surgery [address] [facility] 2nd Floor [address] [place] [address] Morris Disla MD Acute pain of right shoulder (Primary Dx) from Last 3 Months Allergies No known active allergies Medications pyridoxine (vitamin B-6) 250 mg tablet take 1 tablet by oral route every day 0 0 016 Active Additional Information Patient taking differently:250 mgoral Every morning, Indications: supplement, Informant: Self, Reported on 11/20/2024 loratadine (CLARITIN) 10 mg tabletIndications:Smith rgic Rhinitis Take 1 tablet (10 mg total) by mouth every morning Active multivitamin capsuleIndications:Vit john Deficiency Prevention Take 1 capsule by mouth every morning Active aspirin 81 mg enteric coated tabletIndications:Amau rosis fugax,Amaurosis fugax of right eye TAKE 1 TABLET BY MOUTH EVERY DAY 90 tablet 3 024 Active Additional Information Patient taking differently:81 mg oralEvery morning, Informant: Self, Reported on 11/20/2024 clopidogreL (PLAVIX) 75 mg tabletIndications:Amau rosis fugax,Amaurosis fugax of right eye TAKE 1 TABLET BY MOUTH EVERY DAY 90 tablet 3 024 Active Additional Information Patient taking differently:75 mg oralEvery morning, Indications: Cerebral Thromboembolism Prevention, Informant: Self, Reported on 11/20/2024 rosuvastatin (CRESTOR) 40 mg tabletIndications:Pure hypercholesterolemia Take 1 tablet (40 mg total) by mouth every morning 90 tablet 3 024 2024 Active Additional Information Patient taking differently:40 mg oral Every morning,Indications: Cerebral Thromboembolism Prevention, hyperlipidemia, Informant: Self, Reported on 11/20/2024 amLODIPine (NORVASC) 10 mg tabletIndications:Esse ntial hypertension TAKE 1 TABLET (10 MG TOTAL) BY MOUTH EVERY MORNING 90 tablet 1 024 2024 Active Additional Information Patient taking differently:10 mg oral Every morning,Indications: hypertension, Informant: Self, Reported on 11/20/2024 lisinopriL (PRINIVIL,ZESTRIL) 5 mg tabletIndications:Esse ntial hypertension TAKE 1 TABLET (5 MG TOTAL) BY MOUTH EVERY MORNING 90 tablet 1 024 2024 Active Additional Information Patient taking differently:5 mg oral Every morning,Indications: hypertension, Informant: Self, Reported on 11/20/2024 ascorbic acid (vitamin C) 1,000 mg tabletIndications:Nayeli min C Deficiency Take 1 tablet (1,000 mg total) by mouth every morning Active omega-3 fatty acids-fish oil 300-1,000 mg capsuleIndications:sup plement Take 1 capsule (1 g total) by mouth every morning Active oxyCODONE (ROXICODONE) 5 mg immediate release tabletIndications:Pain Take 1 tablet (5 mg total) by mouth every 4 (four) hours as needed for pain 20 tablet Active celecoxib (CeleBREX) 100 mg capsule Take 1 capsule (100 mg total) by mouth 2 (two) times a day 60 capsule 025 2024 Active aspirin 81 mg enteric coated tabletIndications:Deep Vein Thrombosis Prevention Take 1 tablet (81 mg total) by mouth 2 (two) times a day for 3 days 6 tablet 024 2023 Discont inued(D uplicat e order) celecoxib (CeleBREX) 100 mg capsuleIndications:Summer n Take 1 capsule (100 mg total) by mouth 2 (two) times a day for 14 days 28 capsule 024 2023 Discont inued(P atient Reporte d) docusate sodium (COLACE) 100 mg capsuleIndications:con stipation Take 1 capsule (100 mg total) by mouth 2 (two) times a day 15 capsule 024 2023 Discont inued(P atient Reporte d) Active Problems Problem Noted Date Diagnosed Date Solitary pulmonary nodule 11/27/2024 Osteoarthritis of right shou lder, unspecified osteoarthritis type 11/20/2024 Post-traumatic osteoarthritis of right shoulder 10/12/2024 Left carpal tunnel syndrome 04/25/2023 Closed displaced fracture of left clavicle with delayed healing 07/23/2022 Overview (07/23/2022): Added automatically from request for surgery [id number] History of right hip replacement 08/15/2020 04/23/2023 Essential hypertension 07/24/2020 Hyperlipidemia 07/24/2020 Alcohol use 07/24/2020 Closed subcapital fracture of neck of right femu r 07/24/2020 Dehydration 07/24/2020 Pain in shoulder 10/10/2017 Immunizations Name Administration Dates Next Due Tdap 10/14/2023,02/15/2022 ZOSTER Recombinant 10/14/2023 Social History Tobacco Use Types Packs/Day Years Used Date Smoking Tobacco: Never Passive Smoke Exposure: Never Smokeless Tobacco: Never Tobacco Cessation:Counseling Given: Not Answered Alcohol Use Standard Drinks/Week Comments Yes 42 [...] on file Legal Sex Male 10:38 AM ROADS SUPERINTENDENT Gender Identity Male 10/31/2024 2:37 PM ROADS SUPERINTENDENT Sexual Orientation Not on file Last Filed Vital Signs Vital Sign Reading Time Taken Comments Blood Pressure 130/81 11/27/2024 9:31 AM ROADS SUPERINTENDENT Pulse 63 11/27/2024 9:31 AM ROADS SUPERINTENDENT Temperature 36.4 ??C (97.5 ??F) 11/27/2024 9:31 AM CS T Respiratory Rate 16 11/27/2024 9:31 AM ROADS SUPERINTENDENT Oxygen Saturation 96% 11/27/2024 9:31 AM ROADS SUPERINTENDENT Inhaled Oxygen Concentration - - Weight 82.6 kg (182 lb) 11/27/2024 9:31 AM ROADS SUPERINTENDENT Height 172.7 cm (5' 8 ) 11/27/2024 9:31 AM ROADS SUPERINTENDENT Body Mass Index 27.67 11/27/2024 9:31 AM ROADS SUPERINTENDENT Plan of Treatment Not on file Medical Devices Implanted Type Area Lighthouse Keeper Device Identifier Shelf Expiration Date Model / Serial / Lot Shoulder Replacement Left: Shoulder Screws Right: Ankle [employer] [id number] 46mm Modular Dual Mobility Primary Hip F Liner Acetabular Cocr - [id number] Implanted:Qty: 1 on 07/25/2020 by Michael Bruno MD at [facility] Right: Hip [employer] 06/22/2025 [id number] / / [id number] [employer] 58f Shell Acetabular Trident Ii Tritanium F Od58mm Hip 5 Screw Hole Cluster Sterile - [id number] Implanted:Qty: 1 on 07/25/2020 by Michael Bruno MD at [facility] Right: Hip [employer] [id number] 01/18/2025 7004-58F / / [id number] [employer] 3921-7247 Screw Bone Trident Ii L50mm Od6.5mm Low Profile Hexagonal Sterile - [id number] Implanted:Qty: 1 on 07/25/2020 by Michael Bruno MD at [facility] Right: Hip [employer] [id number] 07/15/2024 0913-2421 / / 4AC [employer] 6542-4318 Screw Bone Trident Ii L40mm Od6.5mm Low Profile Hexagonal Sterile - [id number] Implanted:Qty: 1 on 07/25/2020 by Michael Bruno MD at [facility] Right: Hip [employer] [id number] 08/04/2024 7858-5866 / / [id number] [employer] 8718-4325 Screw Bone Trident Ii L40mm Od6.5mm Low Profile Hexagonal Sterile - [id number] Implanted:Qty: 1 on 07/25/2020 by Michael Bruno MD at [facility] Right: Hip [employer] [id number] 08/04/2024 2814-6313 / / [id number] [employer] 3525-5219 Screw Bone Trident Ii L25mm Od6.5mm Low Profile Hexagonal Sterile - [id number] Implanted:Qty: 1 on 07/25/2020 by Michael Bruno MD at [facility] Right: Hip [employer] [id number] 10/12/2024 5319-9577 / / [id number] [employer] [id number] Adm Mobile Bearing Hip Adventist 46mm 52mm 28mm 8.9mm Hip - [id number] Implanted:Qty: 1 on 07/25/2020 by Michael Bruno MD at [facility] Right: Hip [employer] DUP [id number] 11/08/2024 [id number] / / [id number] [employer] 3854-4867 Accolade 114mm 37mm Modular Hip 127d 7 Taper Stem Femoral Sterile - [id number] Implanted:Qty: 1 on 07/25/2020 by Michael Bruno MD at [facility] Right: Hip [employer] [id number] 05/18/2025 3080-4994 / / [id number] [employer] 6570-0-228 V40 28mm Hip +4mm Offset Taper Head Femoral Biolox Delta - [id number] Implanted:Qty: 1 on 07/25/2020 by Michael Bruno MD at [facility] Right: Hip [employer] [id number] 05/29/2025 6570-0-228 / / [id number] [employer] 2.3mm 14mm Nontoggle Hexagonal Cortical Screw Bone Titanium Co-N2314 - [id number] Implanted:Qty: 1 on 07/26/2022 by Kadeem Salazar MD at [facility] [place] Left: Clavicle [employer] [id number] / / Acumed Inc [id number] 11mm 12 Hole Clavicle Left Distal Superior Plate Bone 70-0112 - [id number] Implanted:Qty: 1 on 07/26/2022 by Kadeem Salazar MD at [facility] [place] Left: Clavicle [employer] 70-0112 / / Description:ACUMED INC 101X1 4MM 11MM 12 HOLE CLAVICLE LEFT DISTAL SUPERIOR PLATE BONE 70-0112 - [id number] [employer] 3.5mm 12mm Hexalobe Screw Bone Titanium Nonsterile Small Fragment 030183 - [id number] Implanted:Qty: 2 on 07/26/2022 by Kadeem Salazar MD at [facility] [place] Left: Clavicle [employer] [id number] / / [employer] Inc 3.5mm 14mm Hexalobe Screw Bone Titanium Nonsterile Small Fragment 30-0258 - [id number] Implanted:Qty: 5 on 07/26/2022 by Kadeem Salazar MD at [facility] Left: Clavicle [employer] 30-0258 / / [employer] Inc 3.5mm 16mm Lock Hexalobe Screw Bone Titanium Nonsterile Small 651964 - [id number] Implanted:Qty: 1 on 07/26/2022 by Kadeem Salazar MD at [facility] Left: Clavicle [employer] [id number] / / [employer] 3.5mm 14mm Locking Hexalobe Elbow Screw Bone Sterile 30-0235-S - [id number] Implanted:Qty: 2 on 07/26/2022 by Kadeem Salazar MD at [facility] [place] Left: Clavicle [employer] 30-0235-S / / [employer]i [employer] Comprehensive Taper Adapter 25mm Mini Baseplate Glenoid Reverse [id number] - [id number] Implanted:Qty: 1 on 11/20/2024 at [facility] Right: Shoulder [employer] 03/08/2034 [id number] / / [id number] [employer] Comprehensive 6.5mm 25mm Central Hexagonal 3.5mm Screw Bone [id number] - [id number] Implanted:Qty: 1 on 11/20/2024 at [facility] Right: Shoulder [employer] 09/15/2034 [id number] / / [id number] [employer] Comprehensive 4.75mm 30mm Fix Angle Lock Hexagonal 3.5mm Screw 368009 - [id number] Implanted:Qty: 1 on 11/20/2024 at [facility] Right: Shoulder [employer] 10/12/2034 [id number] / / [id number] [employer] Comprehensive Versa-Dial 36mm Glenosphere Color Coded Shoulder +3 [id number] - [id number] Implanted:Qty: 1 on 11/20/2024 at [facility] Right: Shoulder [employer] 10/01/2034 [id number] / / [id number] [employer] Comprehensive 4.75mm 30mm Fix Angle Lock Hexagonal 3.5mm Screw 324505 - [id number] Implanted:Qty: 1 on 11/20/2024 at [facility] Right: Shoulder [employer] 10/12/2034 [id number] / / [id number] [employer] Comprehensive 4.75mm 15mm Fix Angle Lock Hexagonal 3.5mm Screw [id number] - [id number] Implanted:Qty: 1 on 11/20/2024 at [facility] Right: Shoulder [employer] 07/02/2034 [id number] / / [id number] [employer] Stem Humeral Shoulder Reverse Standard Size 14 Identity Nnls2526 - [id number] Implanted:Qty: 1 on 11/20/2024 at [facility] Right: Shoulder [employer] 11/18/2033 [id number] / / [id number] [employer] Humeral Tray Neutral -6mm Ext Sahtnem6 - [id number] Implanted:Qty: 1 on 11/20/2024 at [facility] Right: Shoulder [employer] 08/17/2034 [id number] / / [id number] [employer] Bearing Humeral Comprehensive Vivacit-E +3mm Od36mm Shoulder Reverse Retentive [id number] - [id number] Implanted:Qty: 1 on 11/20/2024 at [facility] Right: Shoulder [employer] 05/25/2029 [id number] / / [id number] Explanted Type Area Lighthouse Keeper Device Identifier Shelf Expiration Date Model / Serial / Lot Sarah Gould 3.5mm 12mm Hexalobe Screw Bone Titanium Nonsterile Small Fragment [id number] - [id number] Explanted:Qty: 1 on 07/26/[address] [facility] Left: Clavicle Sarah Gould [id number] / / Procedures Procedure Name Priority Date/Time Associated Diagnosis Comments XR SHOULDER RIGHT 2 OR MORE VIEWS Schedule Routine, Read Routine (OP Routine) 12/09/2024 8:09 AM ROADS SUPERINTENDENT S/P reverse total shoulder arthroplasty, right PULMONARY FUNCTION TEST (PFT) Routine 11/27/2024 8:22 AM ROADS SUPERINTENDENT Solitary pulmonary nodule EGFR Routine 11/21/2024 4:30 AM ROADS SUPERINTENDENT HEMOGLOBIN AND HEMATOCRIT Routine 11/21/2024 4:30 AM ROADS SUPERINTENDENT BASIC METABOLIC PANEL Routine 11/21/2024 4:30 AM ROADS SUPERINTENDENT XR SHOULDER RIGHT 2 OR MORE VIEWS IP Routine 11/20/2024 3:29 PM ROADS SUPERINTENDENT IL AN PROCEDURE PLACEHOLDER Routine 11/20/2024 1:38 PM ROADS SUPERINTENDENT IL AN ELECTIVE ENDOTRACHEAL AIRWAY Routine 11/20/2024 1:38 PM ROADS SUPERINTENDENT ARTHROPLASTY SHOULDER - REVERSE TOTAL 11/20/2024 1:17 PM ROADS SUPERINTENDENT Post-traumatic osteoarthritis of right shoulder Case Notes Anyi Identity; [place]; Comprehensive IL AN PROCEDURE PLACEHOLDER Routine 11/20/2024 12:57 PM ROADS SUPERINTENDENT IL AN PROCEDURE PLACEHOLDER Routine 11/20/2024 12:57 PM ROADS SUPERINTENDENT BW IP ANE LDA PERIPHERAL NERVE CATHETER Routine 11/20/2024 12:57 PM ROADS SUPERINTENDENT ANTIBODY SCREEN STAT 11/20/2024 11:45 AM ROADS SUPERINTENDENT ABO/RH STAT 11/20/2024 11:45 AM ROADS SUPERINTENDENT TYPE AND SCREEN STAT 11/20/2024 11:[address] SHOULDER RIGHT WO CONTRAST Schedule Routine, Read Routine (OP Routine) 11/02/2024 9:02 AM ROADS SUPERINTENDENT Post-traumatic osteoarthritis of right shoulder EGFR Routine 11/02/2024 8:48 AM ROADS SUPERINTENDENT Post-traumatic osteoarthritis of right shoulder DIFFERENTIAL AUTO Routine 11/02/2024 8:48 AM ROADS SUPERINTENDENT Preoperative testing ANTIBODY SCREEN Routine 11/02/2024 8:48 AM ROADS SUPERINTENDENT Preoperative testing ABO/RH Routine 11/02/2024 8:48 AM ROADS SUPERINTENDENT Preoperative testing COMPREHENSIVE METABOLIC PANEL Routine 11/02/2024 8:48 AM ROADS SUPERINTENDENT Post-traumatic osteoarthritis of right shoulder CBC WITH AUTO DIFFERENTIAL Routine 11/02/2024 8:48 AM ROADS SUPERINTENDENT Preoperative testing TYPE AND SCREEN 14 DAY Routine 11/02/2024 8:48 AM ROADS SUPERINTENDENT Preoperative testing XR SHOULDER RIGHT 2 OR MORE VIEWS Schedule Routine, Read Routine (OP Routine) 10/12/2024 8:16 AM ROADS SUPERINTENDENT Acute pain of right shoulder POCT LIPID PANEL Routine 01/10/2024 10:26 AM ROADS SUPERINTENDENT Pure hypercholesterolemia from Last 3 Months or Most Recently Relevant to Health Maintenance Results * XR Shoulder Right 2+ View (12/09/2024 8:09 AM ROADS SUPERINTENDENT) Anatomical Region Laterality Modality Upper Extremities, Shoulder Right Digi jimenez Radiography 12/09/2024 8:41 AM ROADS SUPERINTENDENT Impressions 12/09/2024 8:41 AM ROADS SUPERINTENDENT Reverse right total shoulder arthroplasty in expected position. Electronically signed by: Beckie Mojica M.D. Narrative 12/09/2024 8:41 AM ROADS SUPERINTENDENT EXAMINATION: XR SHOULDER RIGHT 2 OR MORE VIEWS DATE: 12/09/2024 8:15 AM HISTORY: right total shoulder arthroplasty COMPARISON: 11/20/2024 FINDINGS: Redemonstrated is a reverse right total shoulder arthroplasty in expected position. ??Interval improvement in postoperative soft tissue gas and swelling. ??No acute fracture. Procedure Note Beckie Mojica MD - 12/09/2024 EXAMINATION: XR SHOULDER RIGHT 2 OR MORE VIEWS DATE: 12/09/2024 8:15 AM HISTORY: right total shoulder arthroplasty COMPARISON: 11/20/2024 FINDINGS: Redemonstrated is a reverse right total shoulder arthroplasty in expected position. Interval improvement in postoperative soft tissue gas and swelling. No acute fracture. IMPRESSION: Reverse right total shoulder arthroplasty in expected position. Electronically signed by: Beckie Mojica M.D. Morris Disla MD IMG XR PROCEDURES Final Result * Pulmonary Function Test - (11/27/2024 8:22 AM ROADS SUPERINTENDENT) FVC PRE 4.81 L [facility] FVC %PRE PRED 119 % [facility] FEV1 PRE 3.61 L [facility] FEV1 %PRE PRED 117 % [facility] FEV1/FVC PRE 75.0 % [facility] Anatomical Region Laterality Modality PFT 11/27/2024 8:15 AM ROADS SUPERINTENDENT Narrative 11/27/2024 10:43 AM ROADS SUPERINTENDENT PFT performed at:->[facility] Adult PFT Lab- CAM-8D Procedure:->Spirometry Pulmonary Function Test Interpretation SPIROMETRY: Spirometry is normal. The flow volume loop is normal. Impression: There is no ventilatory defect. The attending pulmonary physician certifies a physician presence in the [facility] Suite during the administration of aerosolized bronchodilator. The attending pulmonary physician certifies that he/she has reviewed and interpreted the graphic and numerical data of this pulmonary function study and agrees with the written final report. The lower limit of normal for PaO2 and %HbO2 is age dependent. However, the [facility] Pulmonary Function Laboratory defines hypoxemia as a PaO2 <56 mm Hg or a %HbO2 <89%. Jemma Marroquin INCIDENT COMMANDER PFT ORDERABLES Final Result * eGFR (11/21/2024 4:30 AM ROADS SUPERINTENDENT) Pathologist [facility] eGFR >90 >=60 mL/min/1. 73 m2 Comment: Interpretive Data Reference Interval Normal ?>/= 90 mL/min/1.73m2 Mildly decreased* ? 60 - 89 mL/min/1.73m2 Mildly to moderately decreased ?45 - 59 mL/min/1.73m2 Moderately to severely decreased ??30 - 44 mL/min/1.73m2 Severely decreased ?15 - 29 mL/min/1.73m2 Kidney Failure ?< 15 ??mL/min/1.73m2 *Relative to young adult level Estimated glomerular filtration rate is determined by the 2020 CKD-EPI equation recommended by the National Kidney Foundation (A Unifying Approach to GFR Estimation: Recommendations of the NKF-ASK Task Force on Reassessing the Inclusion of Race in Diagnosing Kidney Disease, JASN 2020). The CKD-EPI equation should not be used for patients with unstable renal function and has not been validated in children and those over 70. Current interpretive data was last reviewed 2021. Blood 11/21/2024 4:30 AM ROADS SUPERINTENDENT 11/21/2024 4:36 AM ROADS SUPERINTENDENT Morris Disla MD LAB BLOOD ORDERAB LES Final Result [facility] [address] [facility] Department of Laboratories [place], [place] [id number] * (ABNORMAL) Hemoglobin and hematocrit (11/21/2024 4:30 AM ROADS SUPERINTENDENT) Pathologist [facility] Hgb 12.9(L) 13.0 - 17.5 g/dL Hct 39.0 38.9 - 50.3 % JOSE CHENG Blood 11/21/2024 4:30 AM ROADS SUPERINTENDENT 11/21/2024 4:36 AM ROADS SUPERINTENDENT Morris Disla MD LAB BLOOD ORDERAB LES Final Result Performing Organization Address [facility]/ZIP Co de Phone Number JOSE CHENG [id number] [place] [address] * (ABNORMAL) Basic metabolic panel (11/21/2024 4:30 AM ROADS SUPERINTENDENT) Sodium 137 135 - 145 mmol/L Potassium, pl 4.4 3.3 - 4.9 mmol/L [facility] Chloride 103 97 - 110 mmol/L [facility] CO2 23 22 - 32 mmol/L [facility] Anion gap 12 2 - 15 mmol/L [facility] BUN 13 6 - 25 mg/dL [facility] Creatinine 0.70(L) 0.80 - 1.30 mg/dL [facility] Glucose 138 70 - 199 mg/dL [facility] Comment: Interpretive Data Fasting glucose >/= 126 mg/dl is diagnostic for diabetes. ?? Fasting is defined as no caloric intake for at least 8 hours. Fasting glucose between 100 mg/dl to 125 mg/dl is diagnostic of prediabetes. In a patient with classic symptoms of hyperglycemia or hyperglycemic crisis, a random glucose >/= 200 mg/dl is diagnostic for diabetes. In the absence of unequivocal hyperglycemia, results should be confirmed by repeat testing. The classification and Diagnosis of Diabetes Diabetes Care 2021; 46: S19-S40. Current interpretive data was last revised 2022. Calcium 8.8 8.5 - 10.3 mg/dL [facility] Blood 11/21/2024 4:30 AM ROADS SUPERINTENDENT 11/21/2024 4:36 AM ROADS SUPERINTENDENT Morris Disla MD LAB BLOOD ORDERAB LES Final Result Performing Organization Address [facility] Co de Phone Number JOSE GUPTACH [address] [address] [place] [address] * XR Shoulder Right 2+ View (11/20/2024 3:29 PM ROADS SUPERINTENDENT) Anatomical Region Laterality Modality Upper Extremities, Shoulder Right Comp uted Radiography 11/20/2024 3:33 PM ROADS SUPERINTENDENT Impressions 11/20/2024 3:33 PM ROADS SUPERINTENDENT 1. New reverse right total shoulder arthroplasty in expected position. Electronically signed by: Lm Matos M.D. Narrative 11/20/2024 3:33 PM ROADS SUPERINTENDENT EXAMINATION: XR SHOULDER RIGHT 2 OR MORE VIEWS HISTORY: Right shoulder osteoarthritis COMPARISON: 10/12/2024 FINDINGS: Two view examination of the right shoulder is performed. There is a new reverse right total shoulder arthroplasty in expected position. There is postoperative soft tissue gas and swelling. No fracture is present. Procedure Note Lm Matos MD - 11/20/2024 EXAMINATION: XR SHOULDER RIGHT 2 OR MORE VIEWS HISTORY: Right shoulder osteoarthritis COMPARISON: 10/12/2024 FINDINGS: Two view examination of the right shoulder is performed. There is a new reverse right total shoulder arthroplasty in expected position. There is postoperative soft tissue gas and swelling. No fracture is present. IMPRESSION: 1. New reverse right total shoulder arthroplasty in expected position. Electronically signed by: Lm Matos M.D. Morris Disla MD IMG XR PROCEDURES Final Result * IL AN ELECTIVE ENDOTRACHEAL AIRWAY, IL AN PROCEDURE PLACEHOLDER (11/20/2024 1:38 PM ROADS SUPERINTENDENT) Narrative Linda Middleton CRNA - 11/20/2024 1:38 PM ROADS SUPERINTENDENT Linda Middleton CRNA ? 11/20/2024 ??1:39 PM Airway Patient location: OR Urgency: elective Indications for airway management: anesthesia Difficult airway: no Staff: Placed by: HANDBAG DESIGNER: Linda Middleton CRNA Emergent airway documentation: Risks and benefits discussed: yes Consent obtained: yes Consent given by: patient Airway prep: Preoxygenated: yes Patient position: sniffing Mask difficulty assessment: 0 - not attempted Sedation level during airway: GA Final airway details: Final airway type: endotracheal airway Tube type: ETT ETT size: 7.5 mm Cuffed: yes Technique used for successful ETT placement: video laryngoscopy Insertion site: oral Blade type: Oziel Video blade type: Araujo Blade size: 4 Cormack-Lehane (video): grade I - full view of glottis Cuff inflated with: air ETT to lips: 23 cm Placement verified by: auscultation and CO2 detection Airway secured with: silk tape Number of attempts: 1 us Maria E Dickson MD ANESTHESIA ORDERABLES Final Resu lt * IL AN PROCEDURE PLACEHOLDER (11/20/2024 12:57 PM ROADS SUPERINTENDENT) Narrative Maria E Dickson MD - 11/20/2024 12:57 PM ROADS SUPERINTENDENT Maria E Dickson MD ? 11/20/2024 12:57 PM Peripheral Block Patient location during procedure: pre-op holding Reason for block: post-op pain management per surgeon request Ultrasound image in chart or stored: yes Block type: single shot Laterality: right Block type: PECS II Procedure prep: Preprocedure checklist: patient identified, procedure contraindications assessed, site marked, procedure consent, surgical consent, IV checked, risks, benefits and alternatives discussed, monitors and equipment checked and timeout performed Patient position: sitting and head of bed elevated Procedure performed while patient: sedate with meaningful contact Monitoring: oximetry Supplemental O2: nasal cannula Prep solution: chlorhexidine/alcohol Skin infiltrated with lidocaine 1%: yes Peripheral nerve block: Technique: ultrasound guided Needle type: short-bevel and echogenic Needle gauge: 21 G Needle length: 80 mm Injection assessment: injection made incrementally with constant monitoring, negative aspiration for heme, no paresthesias noted, normal resistance to injection and see flowsheet for medication details Assessment: Block success: full evaluation pending Events: patient tolerated procedure well with no complications us Maria E Dickson MD ANESTHESIA ORDERABLES Final Resu lt * BW IP ANE LDA PERIPHERAL NERVE CATHETER, IL AN PROCEDURE PLACEHOLDER (11/20/2024 12:57 PM ROADS SUPERINTENDENT) Narrative Maria E Dickson MD - 11/20/2024 12:57 PM ROADS SUPERINTENDENT Maria E Dickson MD ? 11/20/2024 12:57 PM Peripheral Block Patient location during procedure: pre-op holding Reason for block: post-op pain management per surgeon request Ultrasound image in chart or stored: yes Block type: catheter continuous infusion Laterality: right Block type: brachial plexus - interscalene Procedure prep: Preprocedure checklist: patient identified, procedure contraindications assessed, site marked, procedure consent, surgical consent, IV checked, risks, benefits and alternatives discussed, monitors and equipment checked and timeout performed Patient position: sitting and head of bed elevated Procedure performed while patient: sedate with meaningful contact Monitoring: oximetry Supplemental O2: nasal cannula Prep solution: chlorhexidine/alcohol PPE: provider hat/mask, sterile gloves, sterile drape and sterile probe cover and gel Skin infiltrated with lidocaine 1%: yes Peripheral nerve block: Technique: ultrasound guided Needle type: insulated, short-bevel and echogenic Needle gauge: 21 G (Hail Varsity NanoLine [id number]) Injection assessment: injection made incrementally with constant monitoring, local visualized surrounding nerve on ultrasound, negative aspiration for heme, no paresthesias noted, normal resistance to injection and see flowsheet for medication details Catheter: Catheter type: 20g non-stimulating catheter and catheter over needle Other catheter type: Pajunk E-Catheter Catheter over needle length: 51 Catheter placement details: catheter position confirmed by ultrasound, no aspiration of heme, negative test dose, steri-strips, occlusive dressing applied and mastisol Assessment: Block success: full evaluation pending Events: patient tolerated procedure well with no complications us Maria E Dicksno MD ANESTHESIA ORDERABLES Final Resu lt * ABO/Rh (11/20/2024 11:45 AM ROADS SUPERINTENDENT) ABO/Rh O Positive Blood 11/20/2024 11:4 5 AM ROADS SUPERINTENDENT 11/20/2024 11:53 AM ROADS SUPERINTENDENT Narrative JOSE CHENG - 11/20/2024 12:53 PM ROADS SUPERINTENDENT Has the patient had Daratumumab or Isatuximab in the past 6 months?->Unknown us Hiwot Day INCIDENT COMMANDER LAB BLOOD BANK TEST O RDERABLES Final Result [facility] [id number] [facility] [place] [address] * Antibody screen (11/20/2024 11:45 AM ROADS SUPERINTENDENT) Silvana, indirect, Gel Interpretation Negative ABSC Blood 11/20/2024 11:4 5 AM ROADS SUPERINTENDENT 11/20/2024 11:53 AM ROADS SUPERINTENDENT Narrative JOSE GUPTACH - 11/20/2024 12:53 PM ROADS SUPERINTENDENT Has the patient had Daratumumab or Isatuximab in the past 6 months?->Unknown Hiwot Day INCIDENT COMMANDER LAB BLOOD BANK TEST O RDERABLES Final Result JOSE GUPTACH [id number] [facility] [place] [address] * CT Shoulder Right WO Contrast (11/02/2024 9:02 AM ROADS SUPERINTENDENT) Anatomical Region Laterality Modality Upper Extremities Right Computed Tomog kindra 11/02/2024 10:4 9 AM ROADS SUPERINTENDENT Impressions 11/02/2024 10:57 AM ROADS SUPERINTENDENT 1. ??Severe right glenohumeral osteoarthritis with posterior decentering of the humeral head, but no significant biconcave remodeling. 2. ??Normal glenoid bone stock with 13 degrees of glenoid retroversion. 3. ??6 mm right middle lobe noncalcified nodule. ??Noncontrast chest CT in 6-12 months for evaluation of stability. Recommend follow up of the Incidental lung nodule. ??Additional Imaging In [address] Months with noncontrast chest CT. ?? Dictated by: Kenny Wilson D.O. The radiology attending physician has personally reviewed this study, and had reviewed and/or edited this written report and agrees with it. Electronically signed by: Hi Soriano M.D. Narrative 11/02/2024 10:57 AM ROADS SUPERINTENDENT EXAMINATION: CT SHOULDER RIGHT WO CONTRAST HISTORY: post-traumatic osteoarthritis TECHNIQUE: Helical CT of the right shoulder without intravenous contrast. Multiplanar reconstructions. COMPARISON: Radiographs 10/12/2024 FINDINGS: Posterior decentering of the humeral head with [id number] articulation posteriorly with the glenoid. ??No significant biconcave remodeling (Walch B1). ??Associated subchondral sclerosis was small cysts. ??Extensive intra-articular mineralization, favored to represent chondrocalcinosis. ??31 mm of glenoid bone stock at the base of the coracoid. ??13 degrees of glenoid retroversion. ??Moderate acromioclavicular osteoarthritis. ??No fracture. Normal rotator cuff muscle bulk. ??No right axillary lymphadenopathy. Calcified mediastinal and right hilar lymph nodes with subcentimeter calcified right lower lobe granuloma. ??6 mm right middle lobe noncalcified nodule (series 3 image 281). ?? Procedure Note Hi Soriano MD - 11/02/2024 EXAMINATION: CT SHOULDER RIGHT WO CONTRAST HISTORY: post-traumatic osteoarthritis TECHNIQUE: Helical CT of the right shoulder without intravenous contrast. Multiplanar reconstructions. COMPARISON: Radiographs 10/12/2024 FINDINGS: Posterior decentering of the humeral head with [id number] articulation posteriorly with the glenoid. No significant biconcave remodeling (Walch B1). Associated subchondral sclerosis was small cysts. Extensive intra-articular mineralization, favored to represent chondrocalcinosis. 31 mm of glenoid bone stock at the base of the coracoid. 13 degrees of glenoid retroversion. Moderate acromioclavicular osteoarthritis. No fracture. Normal rotator cuff muscle bulk. No right axillary lymphadenopathy. Calcified mediastinal and right hilar lymph nodes with subcentimeter calcified right lower lobe granuloma. 6 mm right middle lobe noncalcified nodule (series 3 image 281). IMPRESSION: 1. Severe right glenohumeral osteoarthritis with posterior decentering of the humeral head, but no significant biconcave remodeling. 2. Normal glenoid bone stock with 13 degrees of glenoid retroversion. 3. 6 mm right middle lobe noncalcified nodule. Noncontrast chest CT in 6-12 months for evaluation of stability. Recommend follow up of the Incidental lung nodule. Additional Imaging In [address] Months with noncontrast chest CT. Dictated by: Kenny Wilson D.O. The radiology attending physician has personally reviewed this study, and had reviewed and/or edited this written report and agrees with it. Electronically signed by: Hi Soriano M.D. Morris Disla MD IM CT PROCEDURES Final Result * eGFR (11/02/2024 8:48 AM ROADS SUPERINTENDENT) eGFR >90 >=60 mL/min/1. 73 m2 Comment: Interpretive Data Reference Interval Normal ?>/= 90 mL/min/1.73m2 Mildly decreased* ? 60 - 89 mL/min/1.73m2 Mildly to moderately decreased ?45 - 59 mL/min/1.73m2 Moderately to severely decreased ??30 - 44 mL/min/1.73m2 Severely decreased ?15 - 29 mL/min/1.73m2 Kidney Failure ?< 15 ??mL/min/1.73m2 *Relative to young adult level Estimated glomerular filtration rate is determined by the 2020 CKD-EPI equation recommended by the National Kidney Foundation (A Unifying Approach to GFR Estimation: Recommendations of the NKF-ASK Task Force on Reassessing the Inclusion of Race in Diagnosing Kidney Disease, JASN 2020). The CKD-EPI equation should not be used for patients with unstable renal function and has not been validated in children and those over 70. Current interpretive data was last reviewed 2021. Blood 11/02/2024 8:48 AM ROADS SUPERINTENDENT 11/02/2024 9:32 AM ROADS SUPERINTENDENT Morris Disla MD LAB BLOOD ORDERAB LES Final Result [facility] [address] [facility]. [place] [address] * Differential, auto (11/02/2024 8:48 AM ROADS SUPERINTENDENT) Pathologist [facility] Neutrophil abs 4.3 1.5 - 6.5 K/cumm Imm gran abs 0.0 0.0 - 0.1 K/cumm JOSE GUPTACH Lymphocyte abs 1.4 0.8 - 3.3 K/cumm JOSE CHENG Monocyte abs 0.8 0.2 - 0.8 K/cumm [facility] Eosinophil abs 0.2 0.0 - 0.5 K/cumm [facility] Basophil abs 0.1 0.0 - 0.1 K/cumm [facility] Neutrophil pct 64.2 % [facility] Comment: Interpretive Data Percent cell count reference ranges are not reported, since discordance with absolute values may lead to misinterpretation of CBC data. Current Interpretive Data was last revised on 2018. Imm gran pct 0.5 % [facility] Comment: Interpretive Data Percent cell count reference ranges are not reported, since discordance with absolute values may lead to misinterpretation of CBC data. Current Interpretive Data was last revised on 2018. Lymphocyte pct 20.3 % [facility] Comment: Interpretive Data Percent cell count reference ranges are not reported, since discordance with absolute values may lead to misinterpretation of CBC data. Current Interpretive Data was last revised on 2018. Monocyte pct 11.3 % [facility] Comment: Interpretive Data Percent cell count reference ranges are not reported, since discordance with absolute values may lead to misinterpretation of CBC data. Current Interpretive Data was last revised on 2018. Eosinophil pct 2.9 % [facility] Comment: Interpretive Data Percent cell count reference ranges are not reported, since discordance with absolute values may lead to misinterpretation of CBC data. Current Interpretive Data was last revised on 2018. Basophil pct 0.8 % [facility] Comment: Interpretive Data Percent cell count reference ranges are not reported, since discordance with absolute values may lead to misinterpretation of CBC data. Current Interpretive Data was last revised on 2018. Blood 11/02/2024 8:48 AM ROADS SUPERINTENDENT 11/02/2024 9:32 AM ROADS SUPERINTENDENT us Hiwot Day NP LAB BLOOD ORDERABLES Final Result JOSE CHENG [id number] [facility]. [place] [address] * CBC with auto differential (11/02/2024 8:48 AM ROADS SUPERINTENDENT) [facility] WBC 6.7 3.8 - 9.9 K/cumm Hgb 15.1 13.0 - 17.5 g/dL [facility] Hct 45.3 38.9 - 50.3 % [facility] Plt 253 150 - 400 K/cumm [facility] MPV 10.0 9.1 - 12.3 fL [facility] RBC 4.80 4.30 - 5.80 M/cumm [facility] MCV 94.4 81.3 - 96.4 fL [facility] MCH 31.5 27.1 - 33.3 pg [facility] MCHC 33.3 32.3 - 35.7 g/dL [facility] RDW CV 12.2 11.1 - 14.9 % [facility] RDW SD 43.1 35.7 - 48.1 fL [facility] NRBC abs 0.00 0.00 - 0.01 K/cumm [facility] Blood 11/02/2024 8:48 AM ROADS SUPERINTENDENT 11/02/2024 9:32 AM ROADS SUPERINTENDENT Hiwot Day NP LAB BLOOD ORDERABLES Final Result JOSE CHENG [address] [facility] Department [place] [address] * ABO/Rh (11/02/2024 8:48 AM ROADS SUPERINTENDENT) [facility] ABO/Rh O Positive Blood 11/02/2024 8:48 AM ROADS SUPERINTENDENT 11/02/2024 9:32 AM ROADS SUPERINTENDENT Narrative CHUCKIEIVÁN SORTOCH - 11/02/2024 10:32 AM ROADS SUPERINTENDENT Has the patient had Daratumumab or Isatuximab in the past 6 months?->Unknown Is this test being ordered in advance for a procedure?->Yes Expected date of procedure:->11/20/24 Has the patient been transfused in the past 3 months?->No Hiwot Day NP LAB BLOOD BANK TEST O RDERABLES Final Result Performing Organization Address [facility] de Phone Number [facility] [address] [facility] [place] [address] * Antibody screen (11/02/2024 8:48 AM ROADS SUPERINTENDENT) [facility] Silvana, indirect, Gel Interpretation Negative ABSC Blood 11/02/2024 8:48 AM ROADS SUPERINTENDENT 11/02/2024 9:32 AM ROADS SUPERINTENDENT Narrative [facility] - 11/02/2024 10:32 AM ROADS SUPERINTENDENT Has the patient had Daratumumab or Isatuximab in the past 6 months?->Unknown Is this test being ordered in advance for a procedure?->Yes Expected date of procedure:->11/20/24 Has the patient been transfused in the past 3 months?->No Hiwot Jean Barb LAB BLOOD BANK TEST O RDERABLES Final Result Performing Organization Address [facility] Phone Number JOSE SORTOCH [address] [facility] Department [place] [address] * (ABNORMAL) Comprehensive metabolic panel (11/02/2024 8:48 AM ROADS SUPERINTENDENT) [facility] Sodium 141 135 - 145 mmol/L Potassium, pl 4.7 3.3 - 4.9 mmol/L [facility] Chloride 103 97 - 110 mmol/L [facility] CO2 28 22 - 32 mmol/L [facility] Anion gap 10 2 - 15 mmol/L [facility] BUN 19 6 - 25 mg/dL [facility] Creatinine 0.73(L) 0.80 - 1.30 mg/dL [facility] Glucose 115 70 - 199 mg/dL [facility] Comment: Interpretive Data Fasting glucose >/= 126 mg/dl is diagnostic for diabetes. ?? Fasting is defined as no caloric intake for at least 8 hours. Fasting glucose between 100 mg/dl to 125 mg/dl is diagnostic of prediabetes. In a patient with classic symptoms of hyperglycemia or hyperglycemic crisis, a random glucose >/= 200 mg/dl is diagnostic for diabetes. In the absence of unequivocal hyperglycemia, results should be confirmed by repeat testing. The classification and Diagnosis of Diabetes Diabetes Care 2021; 46: S19-S40. Current interpretive data was last revised 2022. Calcium 9.4 8.5 - 10.3 mg/dL [facility] Bilirubin, total 0.4 0.1 - 1.2 mg/dL [facility] Protein, pl 7.4 6.5 - 8.5 g/dL [facility] Albumin 4.8 3.5 - 5.0 g/dL [facility] Alk phos 60 40 - 130 Units/L [facility] ALT 40 7 - 55 Units/L [facility] AST 28 10 - 50 Units/L [facility] Blood 11/02/2024 8:48 AM ROADS SUPERINTENDENT 11/02/2024 9:32 AM ROADS SUPERINTENDENT Morris Disla MD LAB BLOOD ORDERAB LES Final Result JOSE GUPTA [address] [facility] [place] [address] * XR Shoulder Right 2 or More Views (10/12/2024 8:16 AM ROADS SUPERINTENDENT) Anatomical Region Laterality Modality Upper Extremities, Shoulder Right Comp uted Radiography 10/12/2024 10:2 7 AM ROADS SUPERINTENDENT Impressions 10/12/2024 10:29 AM ROADS SUPERINTENDENT 1. ??Severe right glenohumeral osteoarthritis. Dictated by: Reza Martinez MD The radiology attending physician has personally reviewed this study, and had reviewed and/or edited this written report and agrees with it. Electronically signed by: Lm Matos M.D. Narrative 10/12/2024 10:29 AM ROADS SUPERINTENDENT EXAMINATION: XR SHOULDER RIGHT 2 OR MORE VIEWS HISTORY: ??Right shoulder pain FINDINGS: 4 views of the right shoulder are submitted without comparison. ??Alignment is normal. ??There is severe right glenohumeral and moderate acromioclavicular osteoarthritis. ??No acute fracture or dislocation. ??Extensive periarticular and intra-articular glenohumeral calcifications are noted, likely representing chondrocalcinosis. Procedure Note Lm Matos MD - 10/12/2024 EXAMINATION: XR SHOULDER RIGHT 2 OR MORE VIEWS HISTORY: Right shoulder pain FINDINGS: 4 views of the right shoulder are submitted without comparison. Alignment is normal. There is severe right glenohumeral and moderate acromioclavicular osteoarthritis. No acute fracture or dislocation. Extensive periarticular and intra-articular glenohumeral calcifications are noted, likely representing chondrocalcinosis. IMPRESSION: 1. Severe right glenohumeral osteoarthritis. Dictated by: Reza Martinez MD The radiology attending physician has personally reviewed this study, and had reviewed and/or edited this written report and agrees with it. Electronically signed by: Lm Matos M.D. Morris Disla MD IMG XR PROCEDURES Final Result * POCT lipid panel (01/10/2024 10:26 AM ROADS SUPERINTENDENT) Cholesterol, POC 177 mg/dL HDL, POC 62 mg/dL Triglycerides, POC 131 mg/dL LDL Cholesterol POC 88 mg/dL Chol/HDL Ratio, POC 1.4 Non-HDL Cholesterol, POC 114 mg/dL Cholesterol Total, POC 177 mg/dL Capillary blood 01/10/2024 1 0:26 [address]ADS SUPERINTENDENT Carlos Harris MD POINT OF CARE TEST PEGGY OROZCO Edited Result - Final from Last 3 Months or Most Recently Relevant to Health Maintenance Insurance [employer] Member Subscriber Plan / Payer (Ef fective 2021-Present) Name:Elijah German Relation to Subscriber:Self Name:Elijah German Payer ID:[id number] Group ID:Not on file Type:[employer] Address: [facility] [address] [place], [place] [employer] Member Subscriber Plan / Payer (Ef fective 2021-Present) Name:Elijah German Relation to Subscriber:Self Name:Elijah German Payer ID:[id number] Group ID:Not on file Type:COMMERCIAL Address: [facility] [address] [place], [place] [address] [employer] [facility] [employer] [place] Advance Directives For more information, please contact: [phone] * Full Code (Latest Code Status on File) Date Activated Date Inactivated Comments 11/20/2024 4:14 PM 11/21/2024 2:41 PM * Full Code Date Activated Date Inactivated Comments 07/24/2020 9:35 PM 07/26/2020 8:39 PM Care Teams Fringe Maker Relationship Specialty Start Date End Date Edward De León MD PCP - General 12/27/17 Michael Bruno MD [address] [facility] [address] [place] [address] Consulting Physician Orthopedic Surgery 07/26/20
--- OUTSIDE RECORDS SUMMARY | 2024-12-24 21:39 | XMS_ITS | Clinical Summary ---
Author Organization [facility] D Address [address] [place] [address] Care Team Providers Care Credit And Collections Analyst Name Role Phone Edward De León MD Primary Care Provider + [phone] Michael Bruno MD Unavailable [phone] Allergies No known active allergies Medications pyridoxine [...] BY MOUTH EVERY DAY 90 tablet 3 Active Additional Information Patient taking differently:75 mg [...] (07/23/2022): Added automatically from request for surgery [id number] History of right hip replacement 08/15/2020 04/23/2023 Essential hypertension 07/24/2020 Hyperlipidemia 07/24/2020 Alcohol use 07/24/2020 Closed subcapital fracture of neck of right femu r 07/24/2020 Dehydration 07/24/2020 Pain in shoulder 10/10/2017 Encounters Date Type Department Care Team Description 12/22/2024 Telephone [facility] Pulmonary [address] [facility] Advanced Medicine 8th [place] [address] [place] [address] Tara Turner CMA 12/22/2024 Telephone [facility] Cardiology [address] [facility] [address] [place] [address] Carlos Harris MD Med Management 12/22/2024 Orders Only [facility] Orthopaedic Surgery [address] [facility] 2nd Floor [address] [place] [address] Morris Disla MD 12/18/2024 Telephone [facility] Orthopaedic Surgery [address] [facility] 2nd Floor [address] [place] [address] Morris Disla MD 12/09/2024 8:01 AM EXCHANGE CLERK - 12/09/2024 11:59 PM EXCHANGE CLERK Hospital Encounter [facility] [address] [facility] [address] [place] [address] S/P reverse total shoulder arthroplasty, right Discharge Disposition: Discharge to home or self care 12/09/2024 8:00 AM EXCHANGE CLERK Office Visit [facility] Orthopaedic Surgery [address] [facility] Medical Office Building 1 [address] [place] [address] Morris Disla MD S/P reverse total shoulder arthroplasty, right (Primary Dx) 11/27/2024 9:30 AM EXCHANGE CLERK Office Visit [facility] [address] [facility] Advanced Medicine 8th [place] [address] [place] [address] Jemma Marroquin NP Seasonal allergies (Primary Dx); Solitary pulmonary nodule; Immunization counseling; BLANCA (obstructive sleep apnea) 11/27/2024 8:07 AM EXCHANGE CLERK - 11/27/2024 11:59 PM EXCHANGE CLERK Hospital Encounter [facility] [address] [facility] [address] [place] [address] Solitary pulmonary nodule Discharge Disposition: Discharge to home or self care 11/20/2024 1:45 PM EXCHANGE CLERK - 11/20/2024 4:35 PM EXCHANGE CLERK Surgery [facility] Operating Room [address] [place] [address] Morris Disla MD possible ARTHROPLASTY SHOULDER - REVERSE TOTAL 11/20/2024 1:17 PM EXCHANGE CLERK Anesthesia Event [facility] Operating Room [address] [address] Maria E Dickson MD Giuffrida, Miranda Adair, NP 11/20/2024 9:51 AM EXCHANGE CLERK - 11/21/2024 10:31 AM EXCHANGE CLERK Hospital Encounter [facility] [address] [place] [address] Morris Disla MD Post-traumatic osteoarthritis of right shoulder (Primary Dx) Discharge Disposition: Discharge to home or self care 11/18/2024 Documentation [facility] Orth[facility] Surgery [address] [facility] 2nd Floor [address] [place] [address] Gabriella Duggan RN 11/13/2024 Telephone [facility] Orth[facility] Surgery [address] [facility] 1st Floor [address] [place] [address] Morris Disla MD 11/12/2024 Orders Only [facility] [address] [facility] 8th [place] [address] [place] [address] Jemma Marroquin NP Solitary pulmonary nodule (Primary Dx) 11/02/2024 8:51 AM EXCHANGE CLERK - 11/02/2024 11:59 PM EXCHANGE CLERK Hospital Encounter [facility] Imaging [address] [address] Morris Disla MD Post-traumatic osteoarthritis of right shoulder Discharge Disposition: Discharge to home or self care 11/02/2024 7:30 AM EXCHANGE CLERK Pre-Admission Testing [facility] Pre-Anesthesia Testing [address] [place] [address] Preoperative testing (Primary Dx) 11/02/2024 6:50 AM EXCHANGE CLERK Lab [facility] [address] [address] Preoperative testing; Post-traumatic osteoarthritis of right shoulder 11/02/2024 Documentation [facility] Orth[facility] Surgery [address] [place] [address] 2nd Floor [address] [place] [address] Gabriella Duggan RN 10/16/2024 Telephone [facility] [address] [facility] 1st Floor [address] [place] [address] Morris Disla MD 10/15/2024 Documentation [facility] Surgery [address] [place] [address] 2nd Floor [address] [place] [address] Gabriella Duggan RN 10/12/2024 8:10 AM EXCHANGE CLERK Office Visit [facility] Orth[facility]edic Surgery [id number] [place] [address] 2nd Floor [address] [place] [address] Morris Disla MD Acute pain of right shoulder (Primary Dx) 10/12/2024 8:08 AM EXCHANGE CLERK - 10/12/2024 11:59 PM EXCHANGE CLERK Hospital Encounter [facility] [address] [place] [address] Morris Disla MD Acute pain of right shoulder Discharge Disposition: Discharge to home or self care from Last 3 Months Immunizations Name Administration Dates Next Due Tdap 10/14/2023,02/15/2022 ZOSTER Recombinant 10/14/2023 Surgical History Surgery Date Site/Laterality Comments SHOULDER SURGERY 12/02/2019 - 12/01/2020 Left total repair TOTAL HIP ARTHROPLASTY 07/25/2020 Right SHOULDER SURGERY Left 1971, 1982 SHOULDER SURGERY 12/02/1981 - 12/01/1982 Right ANKLE SURGERY Right 2 screws, 1980s COLONOSCOPY x4, last one 2021 ORIF CLAVICLE FRACTURE 07/26/2022 Medical History Medical History Date Comments Hypertension Hypertension Hyperlipidemia CVA (cerebral vascular accident) (HCC) Carotid stenosis Family History Medical History Relation Name Comments Heart disease Father Hypertension Father Hypertension; Non-Hodgkin's Lymphoma Father Non-H odgkin's lymphoma; Cause of : Non-Hodgkin's lymphoma No Known Problems Mother Anesthesia problems Neg Hx Relation Name Status Comments Father Mother Alive Social History Tobacco Use Types Packs/Day Years [...] on file Legal Sex Male 10:38 AM EXCHANGE CLERK Gender Identity Male 10/31/2024 2:37 PM EXCHANGE CLERK Sexual Orientation Not on file Obstetrics History Last Filed Vital Signs Vital Sign Reading Time Taken Comments Blood Pressure 130/81 11/27/2024 9:31 AM EXCHANGE CLERK Pulse 63 11/27/2024 9:31 AM EXCHANGE CLERK Temperature 36.4 ??C (97.5 ??F) 11/27/2024 9:31 AM CS T Respiratory Rate 16 11/27/2024 9:31 AM EXCHANGE CLERK Oxygen Saturation 96% 11/27/2024 9:31 AM EXCHANGE CLERK Inhaled Oxygen Concentration - - Weight 82.6 kg (182 lb) 11/27/2024 9:31 AM EXCHANGE CLERK Height 172.7 cm (5' 8 ) 11/27/2024 9:31 AM EXCHANGE CLERK Body Mass Index 27.67 11/27/2024 9:31 AM EXCHANGE CLERK Plan of Treatment Health Maintenance Due Date Last Done Comments Albumin Creatinine Ratio, Urine 1956 Colon Cancer Screening-Colonoscopy 1956 Depression Screening 1956 Hemoglobin A1C 1956 Hepatitis C Screening 1956 Prostate Cancer Screening-PSA 1956 Dilated Eye Exam 1956 Foot Exam 1956 Pneumococcal vaccine 65+ (1 of 2 - PCV) 1962 Hepatitis B Screening 1974 Well Visit 65+ 2021 Zoster Vaccine (2 of 2) 12/09/2023 10/14/2023 Influenza Vaccine (#1) 2024 Lipid Panel 01/10/2025 01/10/2024, 12/3 , 11/27/2021, Additional history exists Fall Risk Assessment 11/21/2025 11/21/2024 eGFR 11/21/2025 11/21/2024, 12/0 01/2024, 07/26/2020, Additional history exists DTaP/Tdap/Td Vaccine (3 - Td or Tdap) 10/14/2033 10/14/2023, 02/15/2022 Medical Devices Implanted Type Area Ratoprinter Device Identifier Shelf Expiration Date Model / Serial / Lot Shoulder Replacement Left: Shoulder Screws Right: Ankle [employer] [id number] 46mm Modular Dual Mobility Primary Hip F Liner Acetabular Cocr - [id number] Implanted:Qty: 1 on 07/25/2020 by Michael Bruno MD at [facility] Right: Hip [employer] 06/22/2025 [id number] / / [id number] [employer] 58f Shell Acetabular Trident Ii Tritanium F Od58mm Hip 5 Screw Hole Cluster Sterile - [id number] Implanted:Qty: 1 on 07/25/2020 by Michael Bruno MD at [facility] Right: Hip [employer] [id number] 01/18/2025 70-04-58F / / [id number] [employer] 1164-5121 Screw Bone Trident Ii L50mm Od6.5mm Low Profile Hexagonal Sterile - [id number] Implanted:Qty: 1 on 07/25/2020 by Michael Bruno MD at [facility] Right: Hip [employer] [id number] 07/15/2024 2500-9254 / / 4AC [employer] 0570-3320 Screw Bone Trident Ii L40mm Od6.5mm Low Profile Hexagonal Sterile - [id number] Implanted:Qty: 1 on 07/25/2020 by Michael Bruno MD at [facility] Right: Hip [employer] [id number] 08/04/2024 0435-9186 / / [id number] [employer] 6987-6917 Screw Bone Trident Ii L40mm Od6.5mm Low Profile Hexagonal Sterile - [id number] Implanted:Qty: 1 on 07/25/2020 by Michael Bruno MD at [facility] Right: Hip [employer] [id number] 08/04/2024 5670-0565 / / [id number] [employer] 1884-7381 Screw Bone Trident Ii L25mm Od6.5mm Low Profile Hexagonal Sterile - [id number] Implanted:Qty: 1 on 07/25/2020 by Michael Bruno MD at [facility] Right: Hip [employer] [id number] 10/12/2024 3278-8874 / / [id number] [employer] [id number] Adm Mobile Bearing Hip [employer] 46mm 52mm 28mm 8.9mm Hip - [id number] Implanted:Qty: 1 on 07/25/2020 by Michael Bruno MD at [facility] Right: Hip [employer] DUP [id number] 11/08/2024 [id number] / / [id number] [employer] 7865-3030 Accolade 114mm 37mm Modular Hip 127d 7 Taper Stem Femoral Sterile - [id number] Implanted:Qty: 1 on 07/25/2020 by Michael Bruno MD at [facility] Right: Hip [employer] [id number] 05/18/2025 1533-3601 / / [id number] [employer] 6570-0-228 V40 28mm Hip +4mm Offset Taper Head Femoral Biolox Delta - [id number] Implanted:Qty: 1 on 07/25/2020 by Michael Bruno MD at [facility] Right: Hip [employer] [id number] 05/29/2025 6570-0-228 / / [id number] [employer] 2.3mm 14mm Nontoggle Hexagonal Cortical Screw Bone Titanium Co-N2314 - [id number] Implanted:Qty: 1 on 07/26/2022 by Kadeem Salazar MD at [facility] Left: Clavicle [employer] CO-N2314 / / [employer] [id number] 11mm 12 Hole Clavicle Left Distal Superior Plate Bone 70-0112 - [id number] Implanted:Qty: 1 on 07/26/2022 by Kadeem Salazar MD at [facility] Left: Clavicle [employer] 70-0112 / / Description:[employer]UMED INC 101X1 4MM 11MM 12 HOLE CLAVICLE LEFT DISTAL SUPERIOR PLATE BONE 70-0112 - [id number] [employer] 3.5mm 12mm Hexalobe Screw Bone Titanium Nonsterile Small Fragment 878956 - [id number] Implanted:Qty: 2 on 07/26/2022 by Kadeem Salazar MD at [facility] Left: Clavicle [employer] [id number] / / [employer] 3.5mm 14mm Hexalobe Screw Bone Titanium Nonsterile Small Fragment 30-0258 - [id number] Implanted:Qty: 5 on 07/26/2022 by Kadeem Salazar MD at [facility] [place] Left: Clavicle [employer] 30-0258 / / [employer] 3.5mm 16mm Lock Hexalobe Screw Bone Titanium Nonsterile Small [id number] - [id number] Implanted:Qty: 1 on 07/26/2022 by Kadeem Salazar MD at [facility] [place] Left: Clavicle [employer] [id number] / / [employer] 3.5mm 14mm Locking Hexalobe Elbow Screw Bone Sterile 30-0235-S - [id number] Implanted:Qty: 2 on 07/26/2022 by Kadeem Salazar MD at [facility] Left: Clavicle [employer] 30-0235-S / / [employer] Comprehensive Taper Adapter 25mm Mini Baseplate Glenoid Reverse [id number] - [id number] Implanted:Qty: 1 on 11/20/2024 at [facility] Right: Shoulder [employer] 03/08/2034 [id number] / / [id number] [employer] Comprehensive 6.5mm 25mm Central Hexagonal 3.5mm Screw Bone 856356 - [id number] Implanted:Qty: 1 on 11/20/2024 at [facility] Right: Shoulder [employer] 09/15/2034 [id number] / / [id number] [employer] Comprehensive 4.75mm 30mm Fix Angle Lock Hexagonal 3.5mm Screw 938262 - [id number] Implanted:Qty: 1 on 11/20/2024 at [facility] Right: Shoulder [employer] 10/12/2034 165997 / / [id number] [employer] Comprehensive Versa-Dial 36mm Glenosphere Color Coded Shoulder +3 [id number] - [id number] Implanted:Qty: 1 on 11/20/2024 at [facility] Right: Shoulder [employer] 10/01/2034 [id number] / / [id number] [employer] Comprehensive 4.75mm 30mm Fix Angle Lock Hexagonal 3.5mm Screw 722839 - [id number] Implanted:Qty: 1 on 11/20/2024 at [facility] Right: Shoulder [employer] 10/12/2034 [id number] / / [id number] [employer] Comprehensive 4.75mm 15mm Fix Angle Lock Hexagonal 3.5mm Screw 850163 - [id number] Implanted:Qty: 1 on 11/20/2024 at [facility] Right: Shoulder [employer] 07/02/2034 [id number] / / [id number] [employer] Stem Humeral Shoulder Reverse Standard Size 14 Identity [id number] - [id number] Implanted:Qty: 1 on 11/20/2024 at [facility] Right: Shoulder [employer] 11/18/2033 [id number] / / [id number] [employer] Humeral Tray Neutral -6mm Ext Sahtnem6 - [id number] Implanted:Qty: 1 on 11/20/2024 at [facility] Right: Shoulder [employer] 08/17/2034 [id number] / / [id number] [employer] Bearing Humeral Comprehensive Vivacit-E +3mm Od36mm Shoulder Reverse Retentive [id number] - [id number] Implanted:Qty: 1 on 11/20/2024 at [facility] Right: Shoulder [employer] 05/25/2029 [id number] / / [id number] Explanted Type Area Ratoprinter Device Identifier Shelf Expiration Date Model / Serial / Lot [employer] 3.5mm 12mm Hexalobe Screw Bone Titanium Nonsterile Small Fragment [id number] - [id number] Explanted:Qty: 1 on 07/26/2022 at [facility] Left: Clavicle [employer] [id number] / / Procedures Procedure Name Priority Date/Time Associated Diagnosis Comments XR SHOULDER RIGHT 2 OR MORE VIEWS Schedule Routine, Read Routine (OP Routine) 12/09/2024 8:09 AM EXCHANGE CLERK S/P reverse total shoulder arthroplasty, right PULMONARY FUNCTION TEST (PFT) Routine 11/27/2024 8:22 AM EXCHANGE CLERK Solitary pulmonary nodule EGFR Routine 11/21/2024 4:30 AM EXCHANGE CLERK HEMOGLOBIN AND HEMATOCRIT Routine 11/21/2024 4:30 AM EXCHANGE CLERK BASIC METABOLIC PANEL Routine 11/21/2024 4:30 AM EXCHANGE CLERK XR SHOULDER RIGHT 2 OR MORE VIEWS IP Routine 11/20/2024 3:29 PM EXCHANGE CLERK AR AN PROCEDURE PLACEHOLDER Routine 11/20/2024 1:38 PM EXCHANGE CLERK AR AN ELECTIVE ENDOTRACHEAL AIRWAY Routine 11/20/2024 1:38 PM EXCHANGE CLERK ARTHROPLASTY SHOULDER - REVERSE TOTAL 11/20/2024 1:17 PM EXCHANGE CLERK Post-traumatic osteoarthritis of right shoulder Case Notes Anyi Identity; [place]; Comprehensive AR AN PROCEDURE PLACEHOLDER Routine 11/20/2024 12:57 PM EXCHANGE CLERK AR AN PROCEDURE PLACEHOLDER Routine 11/20/2024 12:57 PM EXCHANGE CLERK BW IP ANE LDA PERIPHERAL NERVE CATHETER Routine 11/20/2024 12:57 PM EXCHANGE CLERK ANTIBODY SCREEN STAT 11/20/2024 11:45 AM EXCHANGE CLERK ABO/RH STAT 11/20/2024 11:45 AM EXCHANGE CLERK TYPE AND SCREEN STAT 11/20/2024 11:[address] SHOULDER RIGHT WO CONTRAST Schedule Routine, Read Routine (OP Routine) 11/02/2024 9:02 AM EXCHANGE CLERK Post-traumatic osteoarthritis of right shoulder EGFR Routine 11/02/2024 8:48 AM EXCHANGE CLERK Post-traumatic osteoarthritis of right shoulder DIFFERENTIAL AUTO Routine 11/02/2024 8:48 AM EXCHANGE CLERK Preoperative testing ANTIBODY SCREEN Routine 11/02/2024 8:48 AM EXCHANGE CLERK Preoperative testing ABO/RH Routine 11/02/2024 8:48 AM EXCHANGE CLERK Preoperative testing COMPREHENSIVE METABOLIC PANEL Routine 11/02/2024 8:48 AM EXCHANGE CLERK Post-traumatic osteoarthritis of right shoulder CBC WITH AUTO DIFFERENTIAL Routine 11/02/2024 8:48 AM EXCHANGE CLERK Preoperative testing TYPE AND SCREEN 14 DAY Routine 11/02/2024 8:48 AM EXCHANGE CLERK Preoperative testing XR SHOULDER RIGHT 2 OR MORE VIEWS Schedule Routine, Read Routine (OP Routine) 10/12/2024 8:16 AM EXCHANGE CLERK Acute pain of right shoulder POCT LIPID PANEL Routine 01/10/2024 10:26 AM EXCHANGE CLERK Pure hypercholesterolemia from Last 3 Months or Most Recently Relevant to Health Maintenance Results * XR Shoulder Right 2+ View (12/09/2024 8:09 AM EXCHANGE CLERK) Anatomical Region Laterality Modality Upper Extremities, Shoulder Right Digi jimenez Radiography 12/09/2024 8:41 AM EXCHANGE CLERK Impressions 12/09/2024 8:41 AM EXCHANGE CLERK Reverse right total shoulder arthroplasty in expected position. Electronically signed by: Beckie Mojica M.D. Narrative 12/09/2024 8:41 AM EXCHANGE CLERK EXAMINATION: XR SHOULDER RIGHT 2 OR MORE [...] Pulmonary Function Test - (11/27/2024 8:22 AM EXCHANGE CLERK) Pathologist [facility] FVC PRE 4.81 L [facility] FVC %PRE PRED 119 % [facility] FEV1 PRE 3.61 L [facility] FEV1 %PRE PRED 117 % [facility] FEV1/FVC PRE 75.0 % [facility] Anatomical Region Laterality Modality PFT 11/27/2024 8:15 AM EXCHANGE CLERK Narrative 11/27/2024 10:43 AM EXCHANGE CLERK PFT performed at:->[facility] Adult PFT Lab- [facility]-8D Procedure:->Spirometry Pulmonary Function [...] and %HbO2 is age dependent. However, the [facility] Function Laboratory defines hypoxemia as a PaO2 <56 mm Hg or a %HbO2 <89%. us eJmma Marroquin NP PFT ORDERABLES Final Result * eGFR (11/21/2024 4:30 AM EXCHANGE CLERK) eGFR >90 >=60 mL/min/1. 73 m2 Comment: [...] last reviewed 2021. Blood 11/21/2024 4:30 AM EXCHANGE CLERK 11/21/2024 4:36 AM EXCHANGE CLERK us Morris Disla MD LAB BLOOD ORDERAB LES Final Result Performing Organization Address [facility] Co de Phone Number JOSE SORTOWCH [phone] [employer] [place] [address] * (ABNORMAL) Hemoglobin and hematocrit (11/21/2024 4:30 AM EXCHANGE CLERK) [facility] Hgb 12.9(L) 13.0 - 17.5 g/dL Hct 39.0 38.9 - 50.3 % JOSE CHENG Blood 11/21/2024 4:30 AM EXCHANGE CLERK 11/21/2024 4:36 AM EXCHANGE CLERK Morris Disla MD LAB BLOOD ORDERAB LES Final Result Performing Organization Address [facility] de Phone Number JOSE BJWCH [phone] [facility] [place] [address] * (ABNORMAL) Basic metabolic panel (11/21/2024 4:30 AM EXCHANGE CLERK) Sodium 137 135 - 145 mmol/L Potassium, pl 4.4 3.3 - 4.9 mmol/L [facility] Chloride 103 97 - 110 mmol/L [facility] CO2 23 22 - 32 mmol/L [facility] Anion gap 12 2 - 15 mmol/L [facility] BUN 13 6 - 25 mg/dL [facility] Creatinine 0.70(L) 0.80 - 1.30 mg/dL [facility] Glucose 138 70 - 199 mg/dL [facility] Comment: Interpretive Data Fasting glucose >/= 126 [...] 2022. Calcium 8.8 8.5 - 10.3 mg/dL [facility] Blood 11/21/2024 4:30 AM EXCHANGE CLERK 11/21/2024 4:36 AM EXCHANGE CLERK us Morris Disla MD LAB BLOOD ORDERAB LES Final Result JOSE SORTOWCH [address] [facility]. [place] [address] * XR Shoulder Right 2+ View (11/20/2024 3:29 PM EXCHANGE CLERK) Anatomical Region Laterality Modality Upper Extremities, Shoulder Right Comp uted Radiography 11/20/2024 3:33 PM EXCHANGE CLERK Impressions 11/20/2024 3:33 PM EXCHANGE CLERK 1. New reverse right total shoulder arthroplasty in expected position. Electronically signed by: Lm Matos M.D. Narrative 11/20/2024 3:33 PM EXCHANGE CLERK EXAMINATION: XR SHOULDER RIGHT 2 OR MORE [...] position. Electronically signed by: Lm Matos M.D. us Morris Disla MD IMG XR PROCEDURES Final Result * AR AN ELECTIVE ENDOTRACHEAL AIRWAY, AR AN PROCEDURE PLACEHOLDER (11/20/2024 1:38 PM EXCHANGE CLERK) Narrative Linda Middleton CRNA - 11/20/2024 1:38 PM EXCHANGE CLERK Linda Middleton CRNA ? 11/20/2024 ??1:39 PM Airway Patient location: OR Urgency: elective Indications for airway management: anesthesia Difficult airway: no Staff: Placed by: INTEGRITY ASSESSOR: Linda Middleton CRNA Emergent airway documentation: Risks [...] MD ANESTHESIA ORDERABLES Final Resu lt * AR AN PROCEDURE PLACEHOLDER (11/20/2024 12:57 PM EXCHANGE CLERK) Maria E Wilson MD - 11/20/2024 12:57 PM EXCHANGE CLERK Maria E Dickson MD ? 11/20/2024 12:57 [...] patient tolerated procedure well with no complications Maria E Dickson MD ANESTHESIA ORDERABLES Final Resu lt * BW IP ANE LDA PERIPHERAL NERVE CATHETER, AR AN PROCEDURE PLACEHOLDER (11/20/2024 12:57 PM EXCHANGE CLERK) Maria E Wilson MD - 11/20/2024 12:57 PM EXCHANGE CLERK Maria E Dickson MD ? 11/20/2024 12:57 [...] short-bevel and echogenic Needle gauge: 21 G ([employer] 21Gx68) Injection assessment: injection made incrementally [...] patient tolerated procedure well with no complications Result [facility] Maria E Dickson MD ANESTHESIA ORDERABLES Final Resu lt * ABO/Rh (11/20/2024 11:45 AM EXCHANGE CLERK) ABO/Rh O Positive Blood 11/20/2024 11:4 5 AM EXCHANGE CLERK 11/20/2024 11:53 AM EXCHANGE CLERK Narrative JOSE CHENG - 11/20/2024 12:53 PM EXCHANGE CLERK Has the patient had Daratumumab or Isatuximab in the past 6 months?->Unknown Result [facility] Hiwot Day NP LAB BLOOD BANK TEST O RDERABLES Final Result JOSE SORTOWCH [address] [facility] Department [place] [address] * Antibody screen (11/20/2024 11:45 AM EXCHANGE CLERK) Silvana, indirect, Gel Interpretation Negative ABSC Blood 11/20/2024 11:4 5 AM EXCHANGE CLERK 11/20/2024 11:53 AM EXCHANGE CLERK Narrative JOSE CHENG - 11/20/2024 12:53 PM EXCHANGE CLERK Has the patient had Daratumumab or Isatuximab in the past 6 months?->Unknown Result [facility] Hiwot Ted Giuffrida ASSEMBLER SEAT LAB BLOOD BANK TEST O RDERABLES Final Result JOSE BJWCH [address] [facility]. [place] [address] * CT Shoulder Right WO Contrast (11/02/2024 9:02 AM EXCHANGE CLERK) Anatomical Region Laterality Modality Upper Extremities Right Computed Tomog kindra 11/02/2024 10:4 9 AM EXCHANGE CLERK Impressions 11/02/2024 10:57 AM EXCHANGE CLERK 1. ??Severe right glenohumeral osteoarthritis with posterior [...] Hi Soriano M.D. Narrative 11/02/2024 10:57 AM EXCHANGE CLERK EXAMINATION: CT SHOULDER RIGHT WO CONTRAST HISTORY: post-traumatic osteoarthritis TECHNIQUE: Helical CT of the right shoulder without intravenous contrast. Multiplanar reconstructions. COMPARISON: Radiographs 10/12/2024 FINDINGS: Posterior decentering of the humeral head with [id number] articulation posteriorly with the glenoid. ??No significant [...] Posterior decentering of the humeral head with [id number] articulation posteriorly with the glenoid. No significant [...] by: Hi Soriano M.D. Morris Disla MD IMG CT PROCEDURES Final Result * eGFR (11/02/2024 8:48 AM EXCHANGE CLERK) eGFR >90 >=60 mL/min/1. 73 m2 Comment: [...] last reviewed 2021. Blood 11/02/2024 8:48 AM EXCHANGE CLERK 11/02/2024 9:32 AM EXCHANGE CLERK us Morris Disla MD LAB BLOOD ORDERAB LES Final Result [facility] [address] [facility]. [place] [address] * Differential, auto (11/02/2024 8:48 AM EXCHANGE CLERK) Pathologist [facility] Neutrophil abs 4.3 1.5 - 6.5 K/cumm Imm gran abs 0.0 0.0 - 0.1 K/cumm [facility] Lymphocyte abs 1.4 0.8 - 3.3 K/cumm [facility] Monocyte abs 0.8 0.2 - 0.8 K/cumm [facility] Eosinophil abs 0.2 0.0 - 0.5 K/cumm [facility] Basophil abs 0.1 0.0 - 0.1 K/cumm [facility] Neutrophil pct 64.2 % [facility] Comment: Interpretive Data Percent cell count reference ranges are not reported, since discordance with absolute values may lead to misinterpretation of CBC data. Current Interpretive Data was last revised on 2018. Imm gran pct 0.5 % [facility] Comment: Interpretive Data Percent cell count reference ranges are not reported, since discordance with absolute values may lead to misinterpretation of CBC data. Current Interpretive Data was last revised on 2018. Lymphocyte pct 20.3 % [facility] Comment: Interpretive Data Percent cell count reference ranges are not reported, since discordance with absolute values may lead to misinterpretation of CBC data. Current Interpretive Data was last revised on 2018. Monocyte pct 11.3 % [facility] Comment: Interpretive Data Percent cell count reference ranges are not reported, since discordance with absolute values may lead to misinterpretation of CBC data. Current Interpretive Data was last revised on 2018. Eosinophil pct 2.9 % [facility] Comment: Interpretive Data Percent cell count reference ranges are not reported, since discordance with absolute values may lead to misinterpretation of CBC data. Current Interpretive Data was last revised on 2018. Basophil pct 0.8 % [facility] Comment: Interpretive Data Percent cell count reference ranges are not reported, since discordance with absolute values may lead to misinterpretation of CBC data. Current Interpretive Data was last revised on 2018. Blood 11/02/2024 8:48 AM EXCHANGE CLERK 11/02/2024 9:32 AM EXCHANGE CLERK [employer] ASSEMBLER SEAT LAB BLOOD ORDERABLES Final Result [facility] [address] [facility]. [place] [address] * CBC with auto differential (11/02/2024 8:48 AM EXCHANGE CLERK) WBC 6.7 3.8 - 9.9 K/cumm Hgb 15.1 13.0 - 17.5 g/dL [facility] Hct 45.3 38.9 - 50.3 % [facility] Plt 253 150 - 400 K/cumm [facility] MPV 10.0 9.1 - 12.3 fL [facility] RBC 4.80 4.30 - 5.80 M/cumm [facility] MCV 94.4 81.3 - 96.4 fL [facility] MCH 31.5 27.1 - 33.3 pg [facility] MCHC 33.3 32.3 - 35.7 g/dL [facility] RDW CV 12.2 11.1 - 14.9 % [facility] RDW SD 43.1 35.7 - 48.1 fL [facility] NRBC abs 0.00 0.00 - 0.01 K/cumm [facility] Blood 11/02/2024 8:48 AM EXCHANGE CLERK 11/02/2024 9:32 AM EXCHANGE CLERK [employer] LAB BLOOD ORDERABLES Final Result Performing Organization Address [facility] Co de Phone Number [facility] [address] [facility] [employer] [place], [place] [id number] * ABO/Rh (11/02/2024 8:48 AM EXCHANGE CLERK) Pathologist [facility] ABO/Rh O Positive Blood 11/02/2024 8:48 AM EXCHANGE CLERK 11/02/2024 9:32 AM EXCHANGE CLERK Narrative [facility] - 11/02/2024 10:32 AM EXCHANGE CLERK Has the patient had Daratumumab or Isatuximab in the past 6 months?->Unknown Is this test being ordered in advance for a procedure?->Yes Expected date of procedure:->11/20/24 Has the patient been transfused in the past 3 months?->No [employer] NP LAB BLOOD BANK TEST O RDERABLES Final Result Performing Organization Address [facility] Co de Phone Number [facility] [address] 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. [place] [address] * (ABNORMAL) Comprehensive metabolic panel (11/02/2024 8:48 AM EXCHANGE CLERK) Sodium 141 135 - 145 mmol/L Potassium, pl 4.7 3.3 - 4.9 mmol/L [facility] Chloride 103 97 - 110 mmol/L [facility] CO2 28 22 - 32 mmol/L [facility] Anion gap 10 2 - 15 mmol/L [facility] BUN 19 6 - 25 mg/dL [facility] Creatinine 0.73(L) 0.80 - 1.30 mg/dL [facility] Glucose 115 70 - 199 mg/dL [facility] Comment: Interpretive Data Fasting glucose >/= 126 [...] Calcium 9.4 8.5 - 10.3 mg/dL [facility] Bilirubin, total 0.4 0.1 - 1.2 mg/dL [facility] Protein, pl 7.4 6.5 - 8.5 g/dL [facility] Albumin 4.8 3.5 - 5.0 g/dL [facility] Alk phos 60 40 - 130 Units/L [facility] ALT 40 7 - 55 Units/L [facility] AST 28 10 - 50 Units/L [facility] Blood 11/02/2024 8:48 AM EXCHANGE CLERK 11/02/2024 9:32 AM EXCHANGE CLERK us Morris Disla MD LAB BLOOD ORDERAB LES Final Result [facility] [address] [facility]. Department [place] [address] * XR Shoulder Right 2 or More Views (10/12/2024 8:16 AM EXCHANGE CLERK) Anatomical Region Laterality Modality Upper Extremities, Shoulder Right Comp uted Radiography 10/12/2024 10:2 7 AM EXCHANGE CLERK Impressions 10/12/2024 10:29 AM EXCHANGE CLERK 1. ??Severe right glenohumeral osteoarthritis. Dictated by: Reza Martinez MD The radiology attending physician has personally reviewed this study, and had reviewed and/or edited this written report and agrees with it. Electronically signed by: Lm Matos M.D. Narrative 10/12/2024 10:29 AM EXCHANGE CLERK EXAMINATION: XR SHOULDER RIGHT 2 OR MORE [...] it. Electronically signed by: Lm Matos M.D. us Morris Disla MD IMG XR PROCEDURES Final Result * POCT lipid panel (01/10/2024 10:26 AM EXCHANGE CLERK) Cholesterol, POC 177 mg/dL HDL, POC 62 mg/dL Triglycerides, POC 131 mg/dL LDL Cholesterol POC 88 mg/dL Chol/HDL Ratio, POC 1.4 Non-HDL Cholesterol, POC 114 mg/dL Cholesterol Total, POC 177 mg/dL Capillary blood 01/10/2024 1 0:26 AM EXCHANGE CLERK Carlos Harris MD POINT OF CARE TEST ITZELSaad ERNESTO Edited Result - Final from Last 3 Months or Most Recently Relevant to Health Maintenance Insurance MEDICARE [facility] [place] Member Subscriber Plan / Payer (Ef fective 2021) Name:Elijah German Relation to Subscriber:Self Name:Elijah German Payer ID:[id number] Group ID:Not on file Type:COMMERCIAL Address: [address] [place]ARE [place] Member Sub[place] Plan / Payer (Ef fective 2021) Name:Elijah German Relation to Subscriber:Self Name:Elijah German Payer ID:[id number] Group ID:Not on file Type:COMMERCIAL Address: [facility] [address] [place], [place] MEDICARE [employer] [place] Advance Directives For more information, please contact: [phone] * Full Code (Latest Code Status on File) Date Activated Date Inactivated Comments 11/20/2024 4:14 PM 11/21/2024 2:41 PM * Full Code Date Activated Date Inactivated Comments 07/24/2020 9:35 PM 07/26/2020 8:39 PM Care Teams Credit And Collections Analyst Relationship Specialty Start Date End Date Edward De León MD PCP - General 12/27/17 Michael Bruno MD [address] [address] Consulting Physician Orthopedic Surgery 07/26/20
--- OUTSIDE RECORDS SUMMARY | 2024-12-24 21:39 | XMS_ITS | Encounter Summary ---
Author Organization [facility] Address [address] [place] [address] Phone Care Team Providers Care Bottle Inspector Name Role Phone Edward De León MD Primary Care Provider + [phone] Michael Bruno MD Unavailable [phone] Encounter Details Date Type Department Care Team (Late st Contact Info) Description 12/22/[address] [facility] Pulmonary [address] [facility] Advanced Medicine 8th [place] [address] [place] [address] Tara Turner CMA Social History Tobacco Use Types Packs/Day Years [...] on file Legal Sex Male 10:38 AM CANVAS CUTTER MACHINE Gender Identity Male 10/31/2024 2:37 PM CANVAS CUTTER MACHINE Sexual Orientation Not on file documented as of this encounter Miscellaneous Notes * Telephone Encounter - Tara Turner CMA - 12/22/2024 2:28 PM CANVAS CUTTER MACHINE PFT results from 11/2024 faxed to Margareth @ Dr. De León's office as requested. F) [phone] AS CUTTER MACHINE documented in this encounter Plan of Treatment Not on file documented as of this encounter Visit Diagnoses Not on filedocumented in this encounter Care Teams Bottle Inspector Relationship Specialty Start Date End Date Edward De León MD PCP - General 12/27/17 Michael Bruno MD [facility] [address] [address] Consulting Physician Orthopedic Surgery 07/26/20 documented as of this encounter
[2024-12-25 14:28] LABS: PSA, Free 0.2 ng/mL; Percent Free Prostate Spec Ag 20 % (calc) (>25)
== END 2024-12-23 08:12 | disposition home or self-care (01) ==
LOC: ANHLAB 08:12
PROVIDERS: PCP Family Medicine; Visit Provider Nurse Practitioner Family
DX: N40.2 Nodular prostate without lower urinary tract symptoms (principal); E11.9 Type 2 diabetes mellitus without complications; I10 Essential (primary) hypertension; E78.5 Hyperlipidemia, unspecified
CPT/HCPCS: 36415; 80053; 80061; 82043; 84153; 84154; 84443; 85027

== ENCOUNTER 2025-01-11 08:19 | Outpatient (CLI) | payer MEDICARE, OTHER, SELFPAY ==
--- OUTSIDE RECORDS SUMMARY | 2025-01-11 08:27 | XMS_ITS | Referral Summary ---
Author Organization [facility] D Address [address] [place] [address] Care Team Providers Care Cupboard Builder Name Role Phone Edward De León MD Primary Care Provider Michael Bruno MD Unavailable Encounters Date Type Department Care Team Description 01/04/2025 11:20 AM SOAKERS SUPERVISOR - 01/04/2025 11:59 PM SOAKERS SUPERVISOR Hospital Encounter [facility] [address] [place] [address] S/P reverse total shoulder arthroplasty, right Discharge Disposition: Discharge to home or self care 01/04/2025 11:40 AM SOAKERS SUPERVISOR Office Visit [facility] Orthopaedic Surgery [address] [facility] 2nd Floor [address] [place] [address] Morris Disla MD S/P reverse total shoulder arthroplasty, right (Primary Dx) 12/22/2024 Telephone [facility] Pulmonary [facility] 8th [place] [address] [place] [address] Tara Turner CMA 12/22/2024 Telephone [facility] Cardiology [address] [facility] [address] [place] [address] Carlos Harris MD Med Management 12/22/2024 Orders Only [facility] Orthopaedic Surgery [address] [facility] 2nd Floor [address] [place] [address] Morris Disla MD 12/18/2024 Telephone [facility] Orthopaedic Surgery [address] [facility] 2nd Floor [address] [place] [address] Morris Disla MD 12/09/2024 8:01 AM SOAKERS SUPERVISOR - 12/09/2024 11:59 PM SOAKERS SUPERVISOR Hospital Encounter [address] 1 [facility] [address] [place] [address] S/P reverse total shoulder arthroplasty, right Discharge Disposition: Discharge to home or self care 12/09/2024 8:00 AM SOAKERS SUPERVISOR Office Visit [facility] Orthopaedic Surgery [address] [place] [address] Medical Office Building 1 [address] [place] [address] Morris Disla MD S/P reverse total shoulder arthroplasty, right (Primary Dx) 11/27/2024 8:07 AM SOAKERS SUPERVISOR - 11/27/2024 11:59 PM SOAKERS SUPERVISOR Hospital Encounter [facility] Pulmonary [address] [facility] [address] [place] [address] Solitary pulmonary nodule Discharge Disposition: Discharge to home or self care 11/27/2024 9:30 AM SOAKERS SUPERVISOR Office Visit [facility] Pulmonary [address] [facility] 8th [place] [address] [place] [address] Jemma Marroquin NP Seasonal allergies (Primary Dx); Solitary pulmonary nodule; Immunization counseling; BLANCA (obstructive sleep apnea) 11/20/2024 9:51 AM SOAKERS SUPERVISOR - 11/21/2024 10:31 AM SOAKERS SUPERVISOR Hospital Encounter [facility] [address] [place] [id number] Morris Disla MD Post-traumatic osteoarthritis of right shoulder (Primary Dx) Discharge Disposition: Discharge to home or self care 11/20/2024 1:45 PM SOAKERS SUPERVISOR - 11/20/2024 4:35 PM SOAKERS SUPERVISOR Surgery [facility] Operating Room [address], [place] [address] Morris Disla MD possible ARTHROPLASTY SHOULDER - REVERSE TOTAL 11/20/2024 1:17 PM SOAKERS SUPERVISOR Anesthesia Event [facility] Operating Room [address] [address] MANN, [place] [address] Maria E Dickson MD Giuffrida, Miranda Adair, NP 11/18/2024 Documentation [facility] Orthopaedic Surgery [address] [facility] 2nd Floor [address] [place] [address] Gabriella Duggan RN 11/13/2024 Telephone [facility] Orthopaedic Surgery [address] [place] [address] 1st Floor [address] [place] [address] Morris Disla MD 11/12/2024 Orders Only [facility] Pulmonary [address] [facility] 8th [place] [address] [place] [address] Jemma Marroquin NP Solitary pulmonary nodule (Primary Dx) 11/02/2024 Documentation [facility] Orthopaedic Surgery [address] [facility] 2nd Floor [address] [place] [address] Gabriella Duggan RN 11/02/2024 6:50 AM SOAKERS SUPERVISOR Lab [facility] [address] [place] [address] [address] Preoperative testing; Post-traumatic osteoarthritis of right shoulder 11/02/2024 8:51 AM SOAKERS SUPERVISOR - 11/02/2024 11:59 PM SOAKERS SUPERVISOR Hospital Encounter [facility] Imaging [address] [place] [address] [address] Morris Disla MD Post-traumatic osteoarthritis of right shoulder Discharge Disposition: Discharge to home or self care 11/02/2024 7:30 AM SOAKERS SUPERVISOR Pre-Admission Testing [facility] Pre-Anesthesia Testing [address] [place] [address] Preoperative testing (Primary Dx) 10/16/2024 Telephone [facility] Orthopaedic Surgery [address] 1st Floor [address] [place] [address] Morris Disla MD 10/15/2024 Documentation [facility] Orthopaedic Surgery [address] [place] [address] 2nd Floor [address] [place] [address] Gabriella Duggan RN 10/12/2024 8:08 AM SOAKERS SUPERVISOR - 10/12/2024 11:59 PM SOAKERS SUPERVISOR Hospital Encounter [facility] [address] [place] [address] Morris Disla MD Acute pain of right shoulder Discharge Disposition: Discharge to home or self care 10/12/2024 8:10 AM SOAKERS SUPERVISOR Office Visit [facility] Orthopaedic Surgery [address] [place] [address] 2nd Floor [address] [place] [address] Morris Disla MD Acute pain of right [...] a day 60 capsule 025 2024 Active Active Problems Problem Noted Date Diagnosed Date Solitary pulmonary nodule 11/27/2024 Osteoarthritis of right shou lder, unspecified osteoarthritis type 11/20/2024 Post-traumatic osteoarthritis of right shoulder 10/12/2024 Left carpal tunnel syndrome 04/25/2023 Closed displaced fracture of left clavicle with delayed healing 07/23/2022 Overview (07/23/2022): Added automatically from request for surgery [id number] History of right hip replacement 08/15/2020 04/23/2023 [...] on file Legal Sex Male 10:38 AM SOAKERS SUPERVISOR Gender Identity Male 10/31/2024 2:37 PM SOAKERS SUPERVISOR Sexual Orientation Not on file Last Filed Vital Signs Vital Sign Reading Time Taken Comments Blood Pressure 130/81 11/27/2024 9:31 AM SOAKERS SUPERVISOR Pulse 63 11/27/2024 9:31 AM SOAKERS SUPERVISOR Temperature 36.4 C (97.5 F) 11/27/2024 9:31 AM SOAKERS SUPERVISOR Respiratory Rate 16 11/27/2024 9:31 AM SOAKERS SUPERVISOR Oxygen Saturation 96% 11/27/2024 9:31 AM SOAKERS SUPERVISOR Inhaled Oxygen Concentration - - Weight 82.6 kg (182 lb) 11/27/2024 9:31 AM SOAKERS SUPERVISOR Height 172.7 cm (5' 8 ) 11/27/2024 9:31 AM SOAKERS SUPERVISOR Body Mass Index 27.67 11/27/2024 9:31 AM SOAKERS SUPERVISOR Plan of Treatment Not on file Medical Devices Implanted Type Area Asset Protection Lead Device Identifier Shelf Expiration Date Model / Serial / Lot Shoulder Replacement Left: Shoulder Screws Right: Ankle [employer] [id number] 46mm Modular Dual Mobility Primary Hip F Liner Acetabular Cocr - [id number] Implanted:Qty: 1 on 07/25/2020 by Michael Bruno MD at [facility] Right: Hip [employer] 06/22/2025 [id number] / / [id number] [employer] 7001-05-58f Shell Acetabular Trident Ii Tritanium F Od58mm Hip 5 Screw Hole Cluster Sterile - [id number] Implanted:Qty: 1 on 07/25/2020 by Michael Bruon MD at [facility] Right: Hip [employer] [id number] 01/18/2025 [id number] / / [id number] [employer] 7705-4628 Screw Bone Trident Ii L50mm Od6.5mm Low Profile Hexagonal Sterile - [id number] Implanted:Qty: 1 on 07/25/2020 by Michael Bruno MD at [facility] Right: Hip [employer] [id number] 07/15/2024 8734-3718 / / 4AC [employer] 8330-3209 Screw Bone Trident Ii L40mm Od6.5mm Low Profile Hexagonal Sterile - [id number] Implanted:Qty: 1 on 07/25/2020 by Michael Bruno MD at [facility] Right: Hip [employer] [id number] 08/04/2024 4960-1010 / / [id number] [employer] 7578-1501 Screw Bone Trident Ii L40mm Od6.5mm Low Profile Hexagonal Sterile - [id number] Implanted:Qty: 1 on 07/25/2020 by Michael Bruno MD at [facility] Right: Hip [employer] [id number] 08/04/2024 0285-1829 / / [id number] [employer] 3533-0537 Screw Bone Trident Ii L25mm Od6.5mm Low Profile Hexagonal Sterile - [id number] Implanted:Qty: 1 on 07/25/2020 by Michael Bruno MD at [facility] Right: Hip [employer] [id number] 10/12/2024 1668-6858 / / [id number] [employer] [id number] Adm Mobile Bearing Hip Zoroastrian 46mm 52mm 28mm 8.9mm Hip - [id number] Implanted:Qty: 1 on 07/25/2020 by Michael Bruno MD at [facility] Right: Hip [employer] DUP [id number] 11/08/2024 [id number] / / [id number] [employer] 5174-8179 Accolade 114mm 37mm Modular Hip 127d 7 Taper Stem Femoral Sterile - [id number] Implanted:Qty: 1 on 07/25/2020 by Michael Bruno MD at [facility] Right: Hip [employer] [id number] 05/18/2025 8082-9555 / / [id number] [employer] 6570-0-228 V40 28mm Hip +4mm Offset Taper Head Femoral Biolox Delta - [id number] Implanted:Qty: 1 on 07/25/2020 by Michael Bruno MD at [facility] Right: Hip [employer] [id number] 05/29/2025 6570-0-228 / / [id number] [employer] 2.3mm 14mm Nontoggle Hexagonal Cortical Screw Bone Titanium Co-N2314 - [id number] Implanted:Qty: 1 on 07/26/2022 by Kadeem Salazar MD at [facility] Left: Clavicle [employer] CO-N2314 / / [employer] [id number] 11mm 12 Hole Clavicle Left Distal Superior Plate Bone 70-0112 - [id number] Implanted:Qty: 1 on 07/26/2022 by Kadeem Salazar MD at [facility] Left: Clavicle [employer] 70-0112 / / Description:[employer]UM[employer] 101X1 4MM 11MM 12 HOLE CLAVICLE LEFT DISTAL SUPERIOR PLATE BONE 70-0112 - [id number] [employer] 3.5mm 12mm Hexalobe Screw Bone Titanium Nonsterile Small Fragment [id number] - [id number] Implanted:Qty: 2 on 07/26/2022 by Kadeem Salazar MD at [facility] Left: Clavicle [employer] [id number] / / [employer] Inc 3.5mm 14mm Hexalobe Screw Bone Titanium Nonsterile Small Fragment 30-0258 - [id number] Implanted:Qty: 5 on 07/26/2022 by Kadeem Salazar MD at [facility] Left: Clavicle [employer] 30-0258 / / [employer] 3.5mm 16mm Lock Hexalobe Screw Bone Titanium Nonsterile Small [id number] - [id number] Implanted:Qty: 1 on 07/26/2022 by Kadeem Salazar MD at [facility] Left: Clavicle [employer] [id number] / / [employer] 3.5mm 14mm Locking Hexalobe Elbow Screw Bone Sterile 30-0235-S - [id number] Implanted:Qty: 2 on 07/26/2022 by Kadeem Salazar MD at [facility] Left: Clavicle [employer] 30-0235-S / / [employer] Comprehensive Taper Adapter 25mm Mini Baseplate Glenoid Reverse [id number] - [id number] Implanted:Qty: 1 on 11/20/2024 at [facility] Right: Shoulder [employer] 03/08/2034 [id number] / / [id number] [employer] Comprehensive 6.5mm 25mm Central Hexagonal 3.5mm Screw Bone 069803 - [id number] Implanted:Qty: 1 on 11/20/2024 at [facility] Right: Shoulder [employer] 09/15/2034 [id number] / / [id number] [employer] Comprehensive 4.75mm 30mm Fix Angle Lock Hexagonal 3.5mm Screw 885304 - [id number] Implanted:Qty: 1 on 11/20/2024 at [facility] Right: Shoulder [employer] 10/12/2034 358596 / / [id number] [employer] Comprehensive Versa-Dial 36mm Glenosphere Color Coded Shoulder +3 720415 - [id number] Implanted:Qty: 1 on 11/20/2024 at [facility] Right: Shoulder [employer] 10/01/2034 [id number] / / [id number] [employer] Comprehensive 4.75mm 30mm Fix Angle Lock Hexagonal 3.5mm Screw 369715 - [id number] Implanted:Qty: 1 on 11/20/2024 at [facility] Right: Shoulder [employer] 10/12/2034 [id number] / / [id number] [employer] Comprehensive 4.75mm 15mm Fix Angle Lock Hexagonal 3.5mm Screw 755610 - [id number] Implanted:Qty: 1 on 11/20/2024 at [facility] Right: Shoulder [employer] 07/02/2034 [id number] / / [id number] [employer] Stem Humeral Shoulder Reverse Standard Size 14 Identity [id number] - [id number] Implanted:Qty: 1 on 11/20/2024 at [facility] Right: Shoulder [employer] 11/18/2033 [id number] / / [id number] [employer] Humeral Tray Neutral -6mm Ext Sahtnem6 - [id number] Implanted:Qty: 1 on 11/20/2024 at [facility] Right: Shoulder [employer] 08/17/2034 [facility] / / [id number] [employer] Bearing Humeral Comprehensive Vivacit-E +3mm Od36mm Shoulder Reverse Retentive [id number] - [id number] Implanted:Qty: 1 on 11/20/2024 at [facility] Right: Shoulder [employer] 05/25/2029 [id number] / / [id number] Explanted Type Area Asset Protection Lead Device Identifier Shelf Expiration Date Model / Serial / Lot [employer] Inc 3.5mm 12mm Hexalobe Screw Bone Titanium Nonsterile Small Fragment [id number] - [id number] Explanted:Qty: 1 on 07/26/2022 at [facility] Left: Clavicle [employer] [id number] / / Procedures Procedure Name Priority Date/Time Associated Diagnosis Comments XR SHOULDER RIGHT 2 OR MORE VIEWS Schedule Routine, Read Routine (OP Routine) 01/04/2025 11:29 AM SOAKERS SUPERVISOR S/P reverse total shoulder arthroplasty, right XR SHOULDER RIGHT 2 OR MORE VIEWS Schedule Routine, Read Routine (OP Routine) 12/09/2024 8:09 AM SOAKERS SUPERVISOR S/P reverse total shoulder arthroplasty, right PULMONARY FUNCTION TEST (PFT) Routine 11/27/2024 8:22 AM SOAKERS SUPERVISOR Solitary pulmonary nodule EGFR Routine 11/21/2024 4:30 AM SOAKERS SUPERVISOR HEMOGLOBIN AND HEMATOCRIT Routine 11/21/2024 4:30 AM SOAKERS SUPERVISOR BASIC METABOLIC PANEL Routine 11/21/2024 4:30 AM SOAKERS SUPERVISOR XR SHOULDER RIGHT 2 OR MORE VIEWS IP Routine 11/20/2024 3:29 PM SOAKERS SUPERVISOR NV AN PROCEDURE PLACEHOLDER Routine 11/20/2024 1:38 PM SOAKERS SUPERVISOR NV AN ELECTIVE ENDOTRACHEAL AIRWAY Routine 11/20/2024 1:38 PM SOAKERS SUPERVISOR ARTHROPLASTY SHOULDER - REVERSE TOTAL 11/20/2024 1:17 PM SOAKERS SUPERVISOR Post-traumatic osteoarthritis of right shoulder Case Notes Anyi Identity; [place]; Comprehensive NV AN PROCEDURE PLACEHOLDER Routine 11/20/2024 12:57 PM SOAKERS SUPERVISOR NV AN PROCEDURE PLACEHOLDER Routine 11/20/2024 12:57 PM SOAKERS SUPERVISOR BW IP ANE LDA PERIPHERAL NERVE CATHETER Routine 11/20/2024 12:57 PM SOAKERS SUPERVISOR ANTIBODY SCREEN STAT 11/20/2024 11:45 AM SOAKERS SUPERVISOR ABO/RH STAT 11/20/2024 11:45 AM SOAKERS SUPERVISOR TYPE AND SCREEN STAT 11/20/2024 11:[address] SHOULDER RIGHT WO CONTRAST Schedule Routine, Read Routine (OP Routine) 11/02/2024 9:02 AM SOAKERS SUPERVISOR Post-traumatic osteoarthritis of right shoulder EGFR Routine 11/02/2024 8:48 AM SOAKERS SUPERVISOR Post-traumatic osteoarthritis of right shoulder DIFFERENTIAL AUTO Routine 11/02/2024 8:48 AM SOAKERS SUPERVISOR Preoperative testing ANTIBODY SCREEN Routine 11/02/2024 8:48 AM SOAKERS SUPERVISOR Preoperative testing ABO/RH Routine 11/02/2024 8:48 AM SOAKERS SUPERVISOR Preoperative testing COMPREHENSIVE METABOLIC PANEL Routine 11/02/2024 8:48 AM SOAKERS SUPERVISOR Post-traumatic osteoarthritis of right shoulder CBC WITH AUTO DIFFERENTIAL Routine 11/02/2024 8:48 AM SOAKERS SUPERVISOR Preoperative testing TYPE AND SCREEN 14 DAY Routine 11/02/2024 8:48 AM SOAKERS SUPERVISOR Preoperative testing XR SHOULDER RIGHT 2 OR MORE VIEWS Schedule Routine, Read Routine (OP Routine) 10/12/2024 8:16 AM SOAKERS SUPERVISOR Acute pain of right shoulder POCT LIPID PANEL Routine 01/10/2024 10:26 AM SOAKERS SUPERVISOR Pure hypercholesterolemia from Last 3 Months or Most Recently Relevant to Health Maintenance Results * XR Shoulder Right 2+ View (01/04/2025 11:29 AM SOAKERS SUPERVISOR) Anatomical Region Laterality Modality Upper Extremities, Shoulder Right Comp uted Radiography 01/04/2025 2:50 PM SOAKERS SUPERVISOR Impressions 01/04/2025 8:54 PM SOAKERS SUPERVISOR 1. Unchanged right reverse total shoulder arthroplasty in near anatomic alignment. Dictated by: Guy Reece M.D. The radiology attending physician has personally reviewed this study, and had reviewed and/or edited this written report and agrees with it. Electronically signed by: Kenny Wilson D.O. Narrative 01/04/2025 8:54 PM SOAKERS SUPERVISOR EXAMINATION: XR SHOULDER RIGHT 2 OR MORE VIEWS HISTORY: Status post right reverse total shoulder arthroplasty. COMPARISON: Comparison is made to prior radiographs dated 12/09/2024. FINDINGS: Unchanged right reverse total shoulder arthroplasty in near-anatomic alignment. No periprosthetic fracture. No osteolysis. Procedure Note Kenny Wilson DO - 01/04/2025 EXAMINATION: XR SHOULDER RIGHT 2 OR MORE VIEWS HISTORY: Status post right reverse total shoulder arthroplasty. COMPARISON: Comparison is made to prior radiographs dated 12/09/2024. FINDINGS: Unchanged right reverse total shoulder arthroplasty in near-anatomic alignment. No periprosthetic fracture. No osteolysis. IMPRESSION: 1. Unchanged right reverse total shoulder arthroplasty in near anatomic alignment. Dictated by: Guy Reece M.D. The radiology attending physician has personally reviewed this study, and had reviewed and/or edited this written report and agrees with it. Electronically signed by: Kenny Wilson D.O. Morris Disla MD IMG XR PROCEDURES Final Result * XR Shoulder Right 2+ View (12/09/2024 8:09 AM SOAKERS SUPERVISOR) Anatomical Region Laterality Modality Upper Extremities, Shoulder Right Digi jimenez Radiography 12/09/2024 8:41 AM SOAKERS SUPERVISOR Impressions 12/09/2024 8:41 AM SOAKERS SUPERVISOR Reverse right total shoulder arthroplasty in expected position. Electronically signed by: Beckie Mojica M.D. Narrative 12/09/2024 8:41 AM SOAKERS SUPERVISOR EXAMINATION: XR SHOULDER RIGHT 2 OR MORE VIEWS DATE: 12/09/2024 8:15 AM HISTORY: right total shoulder arthroplasty COMPARISON: 11/20/2024 FINDINGS: Redemonstrated is a reverse right total shoulder arthroplasty in expected position. Interval improvement in postoperative soft tissue gas and swelling. No acute fracture. Procedure Note Beckie Mojica MD [...] Pulmonary Function Test - (11/27/2024 8:22 AM SOAKERS SUPERVISOR) FVC PRE 4.81 L [facility] FVC %PRE PRED 119 % [facility] FEV1 PRE 3.61 L [facility] FEV1 %PRE PRED 117 % [facility] FEV1/FVC PRE 75.0 % [facility] Anatomical Region Laterality Modality PFT 11/27/2024 8:15 AM SOAKERS SUPERVISOR Narrative 11/27/2024 10:43 AM SOAKERS SUPERVISOR PFT performed at:->[facility] Adult PFT Lab- [facility]-8D Procedure:->Spirometry Pulmonary [...] and %HbO2 is age dependent. However, the [facility] Pulmonary Function Laboratory defines hypoxemia as a PaO2 <56 mm Hg or a %HbO2 <89%. Jemma Marroquin MEDICAL ADMINISTRATIVE ASSISTANT PFT ORDERABLES Final Result * eGFR (11/21/2024 4:30 AM SOAKERS SUPERVISOR) eGFR >90 >=60 mL/min/1. 73 m2 Comment: Interpretive Data Reference Interval Normal >/= 90 mL/min/1.73m2 Mildly decreased* 60 - 89 mL/min/1.73m2 Mildly to moderately decreased 45 - 59 mL/min/1.73m2 Moderately to severely decreased 30 - 44 mL/min/1.73m2 Severely decreased 15 - 29 mL/min/1.73m2 Kidney Failure < 15 mL/min/1.73m2 *Relative to young adult level Estimated glomerular [...] last reviewed 2021. Blood 11/21/2024 4:30 AM SOAKERS SUPERVISOR 11/21/2024 4:36 AM SOAKERS SUPERVISOR Morris Disla MD LAB BLOOD ORDERAB LES Final Result Performing Organization Address [facility] Co de Phone Number JOSE SORTOCH [phone] [facility] CenterThe [facility] [employer] [place], [place] [id number] * (ABNORMAL) Hemoglobin and hematocrit (11/21/2024 4:30 AM SOAKERS SUPERVISOR) Pathologist [facility] Hgb 12.9(L) 13.0 - 17.5 g/dL Hct 39.0 38.9 - 50.3 % [facility] Blood 11/21/2024 4:30 AM SOAKERS SUPERVISOR 11/21/2024 4:36 AM SOAKERS SUPERVISOR Morris Disla MD LAB BLOOD ORDERAB LES Final Result Performing Organization Address [facility] Co de Phone Number JOSE SORTOCH [phone] [facility] Center[facility] [employer] [place], [place] [id number] * (ABNORMAL) Basic metabolic panel (11/21/2024 4:30 AM SOAKERS SUPERVISOR) Sodium 137 135 - 145 mmol/L Potassium, pl 4.4 3.3 - 4.9 mmol/L [facility] Chloride 103 97 - 110 mmol/L [facility] CO2 23 22 - 32 mmol/L [facility] Anion gap 12 2 - 15 mmol/L [facility] BUN 13 6 - 25 mg/dL [facility] Creatinine 0.70(L) 0.80 - 1.30 mg/dL [facility] Glucose 138 70 - 199 mg/dL [facility] Comment: Interpretive Data Fasting glucose >/= 126 mg/dl is diagnostic for diabetes. Fasting is defined as no caloric intake [...] 2022. Calcium 8.8 8.5 - 10.3 mg/dL [facility] Blood 11/21/2024 4:30 AM SOAKERS SUPERVISOR 11/21/2024 4:36 AM SOAKERS SUPERVISOR Morris Disla MD LAB BLOOD ORDERAB LES Final Result [facility] [address] [facility]. [place] [address] * XR Shoulder Right 2+ View (11/20/2024 3:29 PM SOAKERS SUPERVISOR) Anatomical Region Laterality Modality Upper Extremities, Shoulder Right Comp uted Radiography 11/20/2024 3:33 PM SOAKERS SUPERVISOR Impressions 11/20/2024 3:33 PM SOAKERS SUPERVISOR 1. New reverse right total shoulder arthroplasty in expected position. Electronically signed by: Lm Matos M.D. Narrative 11/20/2024 3:33 PM SOAKERS SUPERVISOR EXAMINATION: XR SHOULDER RIGHT 2 OR MORE [...] MD IMG XR PROCEDURES Final Result * NV AN ELECTIVE ENDOTRACHEAL AIRWAY, NV AN PROCEDURE PLACEHOLDER (11/20/2024 1:38 PM SOAKERS SUPERVISOR) Narrative Linda Middleton CRNA - 11/20/2024 1:38 PM SOAKERS SUPERVISOR Linda Middleton CRNA 11/20/2024 1:39 PM Airway Patient location: OR Urgency: elective Indications for airway management: anesthesia Difficult airway: no Staff: Placed by: MAIL MESSENGER: Linda Middleton CRNA Emergent airway documentation: Risks [...] MD ANESTHESIA ORDERABLES Final Resu lt * NV AN PROCEDURE PLACEHOLDER (11/20/2024 12:57 PM SOAKERS SUPERVISOR) Narrative Maria E Dickson MD - 11/20/2024 12:57 PM SOAKERS SUPERVISOR Maria E Dickson MD 11/20/2024 12:57 PM Peripheral Block Patient location [...] BW IP ANE LDA PERIPHERAL NERVE CATHETER, NV AN PROCEDURE PLACEHOLDER (11/20/2024 12:57 PM SOAKERS SUPERVISOR) Narrative Maria E Dickson MD - 11/20/2024 12:57 PM SOAKERS SUPERVISOR Maria E Dickson MD 11/20/2024 12:57 PM Peripheral Block Patient location [...] short-bevel and echogenic Needle gauge: 21 G (Wave [employer] NanoLine 21Gx68) Injection assessment: injection made incrementally [...] Resu lt * ABO/Rh (11/20/2024 11:45 AM SOAKERS SUPERVISOR) ABO/Rh O Positive Blood 11/20/2024 11:4 5 AM SOAKERS SUPERVISOR 11/20/2024 11:53 AM SOAKERS SUPERVISOR Narrative [facility] - 11/20/2024 12:53 PM SOAKERS SUPERVISOR Has the patient had Daratumumab or Isatuximab in the past 6 months?->Unknown Result [facility] [employer] MEDICAL ADMINISTRATIVE ASSISTANT LAB BLOOD BANK TEST O RDERABLES Final Result Performing Organization Address [facility] Co de Phone Number [facility] [address] [employer] Brian [place] [address] * Antibody screen (11/20/2024 11:45 AM SOAKERS SUPERVISOR) Silvana, indirect, Gel Interpretation Negative ABSC Blood 11/20/2024 11:4 5 AM SOAKERS SUPERVISOR 11/20/2024 11:53 AM SOAKERS SUPERVISOR Narrative [facility] - 11/20/2024 12:53 PM SOAKERS SUPERVISOR Has the patient had Daratumumab or Isatuximab in the past 6 months?->Unknown [facility] LAB BLOOD BANK TEST O RDERABLES Final Result Performing Organization Address [facility] Co de Phone Number [facility] [phone] [employer] [facility] [employer] [place] [address] * CT Shoulder Right WO Contrast (11/02/2024 9:02 AM SOAKERS SUPERVISOR) Anatomical Region Laterality Modality Upper Extremities Right Computed Tomog kindra 11/02/2024 10:4 9 AM SOAKERS SUPERVISOR Impressions 11/02/2024 10:57 AM SOAKERS SUPERVISOR 1. Severe right glenohumeral osteoarthritis with posterior [...] Hi Soriano M.D. Narrative 11/02/2024 10:57 AM SOAKERS SUPERVISOR EXAMINATION: CT SHOULDER RIGHT WO CONTRAST HISTORY: post-traumatic osteoarthritis TECHNIQUE: Helical CT of the right shoulder without intravenous contrast. Multiplanar reconstructions. COMPARISON: Radiographs 10/12/2024 FINDINGS: Posterior decentering of the humeral head with [id number] articulation posteriorly with the glenoid. No significant [...] lobe noncalcified nodule (series 3 image 281). Procedure Note Hi Soriano MD - 11/02/2024 EXAMINATION: CT SHOULDER RIGHT WO CONTRAST HISTORY: post-traumatic osteoarthritis TECHNIQUE: Helical CT of the right shoulder without intravenous contrast. Multiplanar reconstructions. COMPARISON: Radiographs 10/12/2024 FINDINGS: Posterior decentering of the humeral head with [id number] articulation posteriorly with the glenoid. No significant [...] Final Result * eGFR (11/02/2024 8:48 AM SOAKERS SUPERVISOR) eGFR >90 >=60 mL/min/1. 73 m2 Comment: Interpretive Data Reference Interval Normal >/= 90 mL/min/1.73m2 Mildly decreased* 60 - 89 mL/min/1.73m2 Mildly to moderately decreased 45 - 59 mL/min/1.73m2 Moderately to severely decreased 30 - 44 mL/min/1.73m2 Severely decreased 15 - 29 mL/min/1.73m2 Kidney Failure < 15 mL/min/1.73m2 *Relative to young adult level Estimated glomerular [...] last reviewed 2021. Blood 11/02/2024 8:48 AM SOAKERS SUPERVISOR 11/02/2024 9:32 AM SOAKERS SUPERVISOR us Morris Disla MD LAB BLOOD ORDERAB LES Final Result JOSE CHENG [id number] [place] [address] * Differential, auto (11/02/2024 8:48 AM SOAKERS SUPERVISOR) Neutrophil abs 4.3 1.5 - 6.5 K/cumm Imm gran abs 0.0 0.0 - 0.1 K/cumm [facility] Lymphocyte abs 1.4 0.8 - 3.3 K/cumm [facility] Monocyte abs 0.8 0.2 - 0.8 K/cumm [facility] Eosinophil abs 0.2 0.0 - 0.5 K/cumm [facility] Basophil abs 0.1 0.0 - 0.1 K/cumm [facility] Neutrophil pct 64.2 % JOSE CHENG Comment: Interpretive Data Percent cell count reference ranges are not reported, since discordance with absolute values may lead to misinterpretation of CBC data. Current Interpretive Data was last revised on 2018. Imm gran pct 0.5 % JOSE CHENG Comment: Interpretive Data Percent cell count reference ranges are not reported, since discordance with absolute values may lead to misinterpretation of CBC data. Current Interpretive Data was last revised on 2018. Lymphocyte pct 20.3 % JOSE CHENG Comment: Interpretive Data Percent cell count reference ranges are not reported, since discordance with absolute values may lead to misinterpretation of CBC data. Current Interpretive Data was last revised on 2018. Monocyte pct 11.3 % JOSE CHENG Comment: Interpretive Data Percent cell count reference ranges are not reported, since discordance with absolute values may lead to misinterpretation of CBC data. Current Interpretive Data was last revised on 2018. Eosinophil pct 2.9 % JOSE CHENG Comment: Interpretive Data Percent cell count reference ranges are not reported, since discordance with absolute values may lead to misinterpretation of CBC data. Current Interpretive Data was last revised on 2018. Basophil pct 0.8 % [facility] Comment: Interpretive Data Percent cell count reference ranges are not reported, since discordance with absolute values may lead to misinterpretation of CBC data. Current Interpretive Data was last revised on 2018. Blood 11/02/2024 8:48 AM SOAKERS SUPERVISOR 11/02/2024 9:32 AM SOAKERS SUPERVISOR [facility] LAB BLOOD ORDERABLES Final Result Performing Organization Address [facility]/ZIP Co de Phone Number JOSE CHENG [phone] [employer] [place] [address] * CBC with auto differential (11/02/2024 8:48 AM SOAKERS SUPERVISOR) WBC 6.7 3.8 - 9.9 K/cumm Hgb 15.1 13.0 - 17.5 g/dL [facility] Hct 45.3 38.9 - 50.3 % [facility] Plt 253 150 - 400 K/cumm [facility] MPV 10.0 9.1 - 12.3 [facility] 4.80 4.30 - 5.80 M/cumm [facility] MCV 94.4 81.3 - 96.4 fL [facility] MCH 31.5 27.1 - 33.3 pg [facility] MCHC 33.3 32.3 - 35.7 g/dL [facility] RDW CV 12.2 11.1 - 14.9 % [facility] RDW SD 43.1 35.7 - 48.1 fL [facility] NRBC abs 0.00 0.00 - 0.01 K/cumm [facility] W Blood 11/02/2024 8:48 AM SOAKERS SUPERVISOR 11/02/2024 9:32 AM SOAKERS SUPERVISOR [facility] MEDICAL ADMINISTRATIVE ASSISTANT LAB BLOOD ORDERABLES Final Result Performing Organization Address City/[facility]/ZIP Co de Phone Number JOSE CHENG [phone] [employer] [facility] [employer] [place], [place] [address] [phone] * ABO/Rh (11/02/2024 8:48 AM SOAKERS SUPERVISOR) ABO/Rh O Positive Blood 11/02/2024 8:48 AM SOAKERS SUPERVISOR 11/02/2024 9:32 AM SOAKERS SUPERVISOR Narrative JOSE CHENG - 11/02/2024 10:32 AM SOAKERS SUPERVISOR Has the patient had Daratumumab or Isatuximab in the past 6 months?->Unknown Is this test being ordered in advance for a procedure?->Yes Expected date of procedure:->11/20/24 Has the patient been transfused in the past 3 months?->No [facility] LAB BLOOD BANK TEST O RDERABLES Final Result Performing Organization Address [facility] de Phone Number [facility] [address] [facility] [place] [address] * Antibody screen (11/02/2024 8:48 AM SOAKERS SUPERVISOR) Pathologist [facility] Silvana, indirect, Gel Interpretation Negative ABSC Blood 11/02/2024 8:48 AM SOAKERS SUPERVISOR 11/02/2024 9:32 AM SOAKERS SUPERVISOR Narrative JOSE GUPTA - 11/02/2024 10:32 AM SOAKERS SUPERVISOR Has the patient had Daratumumab or Isatuximab in the past 6 months?->Unknown Is this test being ordered in advance for a procedure?->Yes Expected date of procedure:->11/20/24 Has the patient been transfused in the past 3 months?->No [facility] MEDICAL ADMINISTRATIVE ASSISTANT LAB BLOOD BANK TEST O RDERABLES Final Result Performing Organization Address [facility] Co de Phone Number [facility] [address] [facility] [place] [address] * (ABNORMAL) Comprehensive metabolic panel (11/02/2024 8:48 AM SOAKERS SUPERVISOR) Pathologist [facility] Sodium 141 135 - 145 mmol/L Potassium, pl 4.7 3.3 - 4.9 mmol/L [facility] Chloride 103 97 - 110 mmol/L [facility] CO2 28 22 - 32 mmol/L [facility] Anion gap 10 2 - 15 mmol/L [facility] BUN 19 6 - 25 mg/dL [facility] Creatinine 0.73(L) 0.80 - 1.30 mg/dL [facility] Glucose 115 70 - 199 mg/dL [facility] Comment: Interpretive Data Fasting glucose >/= 126 mg/dl is diagnostic for diabetes. Fasting is defined as no caloric intake [...] [facility] AST 28 10 - 50 Units/L [facility] Blood 11/02/2024 8:48 AM SOAKERS SUPERVISOR 11/02/2024 9:32 AM SOAKERS SUPERVISOR us Morris Disla MD LAB BLOOD ORDERAB LES Final Result JOSE GUPTA [id number] [facility]. [place] [employer] [place] [place] [address] * XR Shoulder Right 2 or More Views (10/12/2024 8:16 AM SOAKERS SUPERVISOR) Anatomical Region Laterality Modality Upper Extremities, Shoulder Right Comp uted Radiography 10/12/2024 10:2 7 AM SOAKERS SUPERVISOR Impressions 10/12/2024 10:29 AM SOAKERS SUPERVISOR 1. Severe right glenohumeral osteoarthritis. Dictated by: Reza Martinez MD The radiology attending physician has personally reviewed this study, and had reviewed and/or edited this written report and agrees with it. Electronically signed by: Lm Matos M.D. Narrative 10/12/2024 10:29 AM SOAKERS SUPERVISOR EXAMINATION: XR SHOULDER RIGHT 2 OR MORE [...] * POCT lipid panel (01/10/2024 10:26 AM SOAKERS SUPERVISOR) Cholesterol, POC 177 mg/dL HDL, POC 62 mg/dL Triglycerides, POC 131 mg/dL LDL Cholesterol POC 88 mg/dL Chol/HDL Ratio, POC 1.4 Non-HDL Cholesterol, POC 114 mg/dL Cholesterol Total, POC 177 mg/dL Capillary blood 01/10/2024 1 0:26 AM SOAKERS SUPERVISOR us Carlos Harris MD POINT OF CARE TEST ITZELSaad OROZCO Edited Result - Final from Last 3 Months or Most Recently Relevant to Health Maintenance Insurance MEDICARE [place] [employer] [place] Member Subscriber Plan / Payer (Ef fective 2021-Present) Name:Elijah German Relation to Subscriber:Self Name:Elijah German Payer ID:[id number] Group ID:Not on file Type:COMMERCIAL Address: [facility] [address] [place], [place] MED[employer]ARE [employer] [place] Member Subscriber Plan / Payer (Ef fective 2021-Present) Name:Elijah German Relation to Subscriber:Self Name:Elijah German Payer ID:[id number] Group ID:Not on file Type:[employer] Address: [facility] [address] [place] Advance Directives For more information, please contact: [phone] * Full Code (Latest Code Status on File) Date Activated Date Inactivated Comments 11/20/2024 4:14 PM 11/21/2024 2:41 PM * Full Code Date Activated Date Inactivated Comments 07/24/2020 9:35 PM 07/26/2020 8:39 PM Care Teams Cupboard Builder Relationship Specialty Start Date End Date Edward De León MD PCP - General 12/27/17 Michael Bruno MD [address] [address] Consulting Physician Orthopedic Surgery 07/26/20
--- OUTSIDE RECORDS SUMMARY | 2025-01-11 08:27 | XMS_ITS | Clinical Summary ---
Author Organization [facility] D Address [address] [place] [address] Care Team Providers Care Chainstitch Zipper Setter Name Role Phone Edward De León MD Primary Care Provider + [phone] Michael Bruno MD Unavailable [phone] Allergies No known active allergies Medications pyridoxine [...] (07/23/2022): Added automatically from request for surgery [id number] History of right hip replacement 08/15/2020 04/23/2023 Essential hypertension 07/24/2020 Hyperlipidemia 07/24/2020 Alcohol use 07/24/2020 Closed subcapital fracture of neck of right femu r 07/24/2020 Dehydration 07/24/2020 Pain in shoulder 10/10/2017 Encounters Date Type Department Care Team Description 01/04/2025 11:40 AM PLUG STITCHER Office Visit [facility] Orthopaedic Surgery [address] [place] [address] 2nd Floor [address] [place] [address] Morris Disla MD S/P reverse total shoulder arthroplasty, right (Primary Dx) 01/04/2025 11:20 AM PLUG STITCHER - 01/04/2025 11:59 PM PLUG STITCHER Hospital Encounter [facility] [address] [place] [address] S/P reverse total shoulder arthroplasty, right Discharge Disposition: Discharge to home or self care 12/22/2024 Telephone [facility] Pulmonary [facility] Advanced Medicine 8th [place] [address] [place] [phone] Tara Turner CMA 12/22/2024 Telephone [facility] Cardiology [address] [facility] [address] [place] [phone] Carlos Harris MD Med Management 12/22/2024 Orders Only [facility] Orthopaedic Surgery [address] [place] [address] 2nd [address] [place] [address] Morris Disla MD 12/18/2024 Telephone [facility] Orthopaedic Surgery [address] [place] [address] [address] [place] [address] Morris Disla MD 12/09/2024 8:01 AM PLUG STITCHER - 12/09/2024 11:59 PM PLUG STITCHER Hospital Encounter [address] [place] [address] S/P reverse total shoulder arthroplasty, right Discharge Disposition: Discharge to home or self care 12/09/2024 8:00 AM PLUG STITCHER Office Visit [facility] Orthopaedic Surgery [address] [facility] Medical Office Building 1 [address] [place] [address] Morris Disla MD S/P reverse total shoulder arthroplasty, right (Primary Dx) 11/27/2024 9:30 AM PLUG STITCHER Office Visit [facility] Pulmonary [address] [facility] Advanced Medicine 8th [place] [address] [place] [address] Jemma Marroquin NP Seasonal allergies (Primary Dx); Solitary pulmonary nodule; Immunization counseling; BLANCA (obstructive sleep apnea) 11/27/2024 8:07 AM PLUG STITCHER - 11/27/2024 11:59 PM PLUG STITCHER Hospital Encounter [facility] Pulmonary [address] [facility] [address] [place] [address] Solitary pulmonary nodule Discharge Disposition: Discharge to home or self care 11/20/2024 1:45 PM PLUG STITCHER - 11/20/2024 4:35 PM PLUG STITCHER Surgery [facility] Operating Room [address] [place] [address] Morris Disla MD possible ARTHROPLASTY SHOULDER - REVERSE TOTAL 11/20/2024 1:17 PM PLUG STITCHER Anesthesia Event [facility] Operating Room [address] [place] [address] Maria E Dickson MD Giuffrida, Miranda Adair, NP 11/20/2024 9:51 AM PLUG STITCHER - 11/21/2024 10:31 AM PLUG STITCHER Hospital Encounter [facility] [address] [place] [address] Morris Disla MD Post-traumatic osteoarthritis of right shoulder (Primary Dx) Discharge Disposition: Discharge to home or self care 11/18/2024 Documentation [facility] Orthopaedic Surgery [address] [facility] 2nd Floor [address] [place] [address] Gabriella Duggan RN 11/13/2024 Telephone [facility] Orthopaedic Surgery [address] [facility] 1st Floor [address] [place] [address] Morris Disla MD 11/12/2024 Orders Only [facility] Pulmonary [address] [facility] 8th [place] [address] [place] [address] Jemma Marroquin NP Solitary pulmonary nodule (Primary Dx) 11/02/2024 8:51 AM PLUG STITCHER - 11/02/2024 11:59 PM PLUG STITCHER Hospital Encounter [facility] Imaging [address] [address] Morris Disla MD Post-traumatic osteoarthritis of right shoulder Discharge Disposition: Discharge to home or self care 11/02/2024 7:30 AM PLUG STITCHER Pre-Admission Testing [facility] Pre-Anesthesia Testing [address] [place] [address] Preoperative testing (Primary Dx) 11/02/2024 6:50 AM PLUG STITCHER Lab [facility] [address] [place] [address] Preoperative testing; Post-traumatic osteoarthritis of right shoulder 11/02/2024 Documentation [facility] Orthopaedic Surgery [address] [place] [address] 2nd Floor [address] [place] [address] Gabirella Duggan, RAVINDER 10/16/2024 Telephone [facility] Orthopaedic Surgery [address] [facility] 1st Floor [address] [place] [address] Morris Disla MD 10/15/2024 Documentation [facility] Orthopaedic Surgery [address] [place] [address] 2nd Floor [address] [place] [address] Gabriella Duggan, RAVINDER 10/12/2024 8:10 AM PLUG STITCHER Office Visit [facility] Orthopaedic Surgery [address] [place] [address] 2nd Floor [address] [place] [address] Morris Disla MD Acute pain of right shoulder (Primary Dx) 10/12/2024 8:08 AM PLUG STITCHER - 10/12/2024 11:59 PM PLUG STITCHER Hospital Encounter [facility] [id number] [place] [address] Morris Disla MD Acute pain of right shoulder Discharge Disposition: Discharge to home or self care from Last 3 Months Immunizations Name Administration Dates Next Due Tdap 10/14/2023,02/15/2022 ZOSTER Recombinant 10/14/2023 Surgical History Surgery Date Site/Laterality Comments SHOULDER SURGERY 12/02/2019 - 12/01/2020 Left total repair TOTAL HIP ARTHROPLASTY 07/25/2020 Right SHOULDER SURGERY Left 1982 SHOULDER SURGERY 12/02/1981 - 12/01/1982 Right ANKLE SURGERY Right 2 screws, COLONOSCOPY x4, last one 2021 ORIF CLAVICLE [...] on file Legal Sex Male 10:38 AM PLUG STITCHER Gender Identity Male 10/31/2024 2:37 PM PLUG STITCHER Sexual Orientation Not on file Obstetrics History Last Filed Vital Signs Vital Sign Reading Time Taken Comments Blood Pressure 130/81 11/27/2024 9:31 AM PLUG STITCHER Pulse 63 11/27/2024 9:31 AM PLUG STITCHER Temperature 36.4 C (97.5 F) 11/27/2024 9:31 AM PLUG STITCHER Respiratory Rate 16 11/27/2024 9:31 AM PLUG STITCHER Oxygen Saturation 96% 11/27/2024 9:31 AM PLUG STITCHER Inhaled Oxygen Concentration - - Weight 82.6 kg (182 lb) 11/27/2024 9:31 AM PLUG STITCHER Height 172.7 cm (5' 8 ) 11/27/2024 9:31 AM PLUG STITCHER Body Mass Index 27.67 11/27/2024 9:31 AM PLUG STITCHER Plan of Treatment Health Maintenance Due Date [...] 10/14/2023, 02/15/2022 Medical Devices Implanted Type Area Annealing Furnace Operator Device Identifier Shelf Expiration Date Model / Serial / Lot Shoulder Replacement Left: Shoulder Screws Right: Ankle [employer] [id number] 46mm Modular Dual Mobility Primary Hip F Liner Acetabular Cocr - [id number] Implanted:Qty: 1 on 07/25/2020 by Michael Bruno MD at [facility] Right: Hip [employer] 06/22/2025 [id number] / / [id number] [employer] 702-04-58f Shell Acetabular Trident Ii Tritanium F Od58mm Hip 5 Screw Hole Cluster Sterile - [id number] Implanted:Qty: 1 on 07/25/2020 by Michael Bruno MD at [facility] Right: Hip [employer] [id number] 01/18/2025 702-04-58F / / [id number] [employer] 5539-3407 Screw Bone Trident Ii L50mm Od6.5mm Low Profile Hexagonal Sterile - [id number] Implanted:Qty: 1 on 07/25/2020 by Michael Bruno MD at [facility] Right: Hip [employer] [id number] 07/15/2024 1690-3296 / / [id number] [employer] 3888-7800 Screw Bone Trident Ii L40mm Od6.5mm Low Profile Hexagonal Sterile - [id number] Implanted:Qty: 1 on 07/25/2020 by Michael Bruno MD at [facility] Right: Hip [employer] [id number] 08/04/2024 6674-7746 / / [id number] [employer] 1423-0298 Screw Bone Trident Ii L40mm Od6.5mm Low Profile Hexagonal Sterile - [id number] Implanted:Qty: 1 on 07/25/2020 by Michael Bruno MD at [facility] Right: Hip [employer] [id number] 08/04/2024 9420-7445 / / [id number] [employer] 5610-4060 Screw Bone Trident Ii L25mm Od6.5mm Low Profile Hexagonal Sterile - [id number] Implanted:Qty: 1 on 07/25/2020 by Michael Bruno MD at [facility] Right: Hip [employer] [id number] 10/12/2024 0213-1436 / / [id number] [employer] [id number] Mobile Bearing Hip Alevism 46mm 52mm 28mm 8.9mm Hip - [id number] Implanted:Qty: 1 on 07/25/2020 by Michael Bruno MD at [facility] Right: Hip [employer] DUP [id number] 11/08/2024 [id number] / / [id number] [employer] 4868-3460 Accolade 114mm 37mm Modular Hip 127d 7 Taper Stem Femoral Sterile - [id number] Implanted:Qty: 1 on 07/25/2020 by Michael Bruno MD at [facility] Right: Hip [employer] [id number] 05/18/2025 9360-6713 / / [id number] [employer] 6570-0-228 V40 28mm Hip +4mm Offset Taper Head Femoral Biolox Delta - [id number] Implanted:Qty: 1 on 07/25/2020 by Michael Bruno MD at [facility] Right: Hip [employer] [id number] 05/29/2025 6570-0-228 / / [id number] [employer] 2.3mm 14mm Nontoggle Hexagonal Cortical Screw Bone Titanium Co-N2314 - [id number] Implanted:Qty: 1 on 07/26/2022 by Kadeem Salazar MD at [facility] Left: Clavicle [employer] [id number] / / [employer] [id number] 11mm 12 Hole Clavicle Left Distal Superior Plate Bone 70-0112 - [id number] Implanted:Qty: 1 on 07/26/2022 by Kadeem Salazar MD at [facility] Left: Clavicle [employer] 70-0112 / / Description:[employer]UM[employer] 101X1 4MM 11MM 12 HOLE CLAVICLE LEFT DISTAL SUPERIOR PLATE BONE 70-0112 - [id number] [employer] 3.5mm 12mm Hexalobe Screw Bone Titanium Nonsterile Small Fragment 706912 - [id number] Implanted:Qty: 2 on 07/26/2022 by Kadeem Salazar MD at [facility] Left: Clavicle [employer] [id number] / / [employer] Inc 3.5mm 14mm Hexalobe Screw Bone Titanium Nonsterile Small Fragment 30-0258 - [id number] Implanted:Qty: 5 on 07/26/2022 by Kadeem Salazar MD at [facility] Left: Clavicle [employer] 30-0258 / / [employer] Inc 3.5mm 16mm Lock Hexalobe Screw Bone Titanium Nonsterile Small 835911 - [id number] Implanted:Qty: 1 on 07/26/2022 by Kadeem Salazar MD at [facility] [place] Left: Clavicle [employer] [id number] / / [employer] 3.5mm 14mm Locking Hexalobe Elbow Screw Bone Sterile 30-0235-S - [id number] Implanted:Qty: 2 on 07/26/2022 by Kadeem Salazar MD at [facility] Left: Clavicle [employer] 30-0235-S / / [employer] Comprehensive Taper Adapter 25mm Mini Baseplate Glenoid Reverse [id number] - [id number] Implanted:Qty: 1 on 11/20/2024 at [facility] Right: Shoulder [employer] 03/08/2034 [id number] / / [id number] [employer] Comprehensive 6.5mm 25mm Central Hexagonal 3.5mm Screw Bone 640540 - [id number] Implanted:Qty: 1 on 11/20/2024 at [facility] Right: Shoulder [employer] 09/15/2034 652366 / / [id number] [employer] Comprehensive 4.75mm 30mm Fix Angle Lock Hexagonal 3.5mm Screw 593219 - [id number] Implanted:Qty: 1 on 11/20/2024 at [facility] Right: Shoulder [employer] 10/12/2034 123530 / / [id number] [employer] Comprehensive Versa-Dial 36mm Glenosphere Color Coded Shoulder +3 318760 - [id number] Implanted:Qty: 1 on 11/20/2024 at [facility] Right: Shoulder [employer] 10/01/2034 919328 / / [id number] [employer] Comprehensive 4.75mm 30mm Fix Angle Lock Hexagonal 3.5mm Screw 213890 - [id number] Implanted:Qty: 1 on 11/20/2024 at [facility] Right: Shoulder [employer] 10/12/2034 [id number] / / [id number] [employer] Comprehensive 4.75mm 15mm Fix Angle Lock Hexagonal 3.5mm Screw 487562 - [id number] Implanted:Qty: 1 on 11/20/2024 at [facility] Right: Shoulder [employer] 07/02/2034 [id number] / / [id number] [employer] Stem Humeral Shoulder Reverse Standard Size 14 Identity Ckht2289 - [id number] Implanted:Qty: 1 on 11/20/2024 at [facility] Right: Shoulder [employer] 11/18/2033 [id number] / / [id number] [employer] Humeral Tray Neutral -6mm Ext Sahtnem6 - [id number] Implanted:Qty: 1 on 11/20/2024 at [facility] Right: Shoulder [employer] 08/17/2034 SAHTNEM6 / / [id number] [employer] Bearing Humeral Comprehensive Vivacit-E +3mm Od36mm Shoulder Reverse Retentive [id number] - [id number] Implanted:Qty: 1 on 11/20/2024 at [facility] Right: Shoulder [employer] 05/25/2029 [id number] / / [id number] Explanted Type Area Annealing Furnace Operator Device Identifier Shelf Expiration Date Model / Serial / Lot [employer] 3.5mm 12mm Hexalobe Screw Bone Titanium Nonsterile Small Fragment [id number] - [id number] Explanted:Qty: 1 on 07/26/2022 at [facility] Left: Clavicle [employer] [id number] / / Procedures Procedure Name Priority Date/Time Associated Diagnosis Comments XR SHOULDER RIGHT 2 OR MORE VIEWS Schedule Routine, Read Routine (OP Routine) 01/04/2025 11:29 AM PLUG STITCHER S/P reverse total shoulder arthroplasty, right XR SHOULDER RIGHT 2 OR MORE VIEWS Schedule Routine, Read Routine (OP Routine) 12/09/2024 8:09 AM PLUG STITCHER S/P reverse total shoulder arthroplasty, right PULMONARY FUNCTION TEST (PFT) Routine 11/27/2024 8:22 AM PLUG STITCHER Solitary pulmonary nodule EGFR Routine 11/21/2024 4:30 AM PLUG STITCHER HEMOGLOBIN AND HEMATOCRIT Routine 11/21/2024 4:30 AM PLUG STITCHER BASIC METABOLIC PANEL Routine 11/21/2024 4:30 AM PLUG STITCHER XR SHOULDER RIGHT 2 OR MORE VIEWS IP Routine 11/20/2024 3:29 PM PLUG STITCHER ND AN PROCEDURE PLACEHOLDER Routine 11/20/2024 1:38 PM PLUG STITCHER ND AN ELECTIVE ENDOTRACHEAL AIRWAY Routine 11/20/2024 1:38 PM PLUG STITCHER ARTHROPLASTY SHOULDER - REVERSE TOTAL 11/20/2024 1:17 PM PLUG STITCHER Post-traumatic osteoarthritis of right shoulder Case Notes Anyi Identity; [employer]; Comprehensive ND AN PROCEDURE PLACEHOLDER Routine 11/20/2024 12:57 PM PLUG STITCHER ND AN PROCEDURE PLACEHOLDER Routine 11/20/2024 12:57 PM PLUG STITCHER BW IP ANE LDA PERIPHERAL NERVE CATHETER Routine 11/20/2024 12:57 PM PLUG STITCHER ANTIBODY SCREEN STAT 11/20/2024 11:45 AM PLUG STITCHER ABO/RH STAT 11/20/2024 11:45 AM PLUG STITCHER TYPE AND SCREEN STAT 11/20/2024 11:[address] SHOULDER RIGHT WO CONTRAST Schedule Routine, Read Routine (OP Routine) 11/02/2024 9:02 AM PLUG STITCHER Post-traumatic osteoarthritis of right shoulder EGFR Routine 11/02/2024 8:48 AM PLUG STITCHER Post-traumatic osteoarthritis of right shoulder DIFFERENTIAL AUTO Routine 11/02/2024 8:48 AM PLUG STITCHER Preoperative testing ANTIBODY SCREEN Routine 11/02/2024 8:48 AM PLUG STITCHER Preoperative testing ABO/RH Routine 11/02/2024 8:48 AM PLUG STITCHER Preoperative testing COMPREHENSIVE METABOLIC PANEL Routine 11/02/2024 8:48 AM PLUG STITCHER Post-traumatic osteoarthritis of right shoulder CBC WITH AUTO DIFFERENTIAL Routine 11/02/2024 8:48 AM PLUG STITCHER Preoperative testing TYPE AND SCREEN 14 DAY Routine 11/02/2024 8:48 AM PLUG STITCHER Preoperative testing XR SHOULDER RIGHT 2 OR MORE VIEWS Schedule Routine, Read Routine (OP Routine) 10/12/2024 8:16 AM PLUG STITCHER Acute pain of right shoulder POCT LIPID PANEL Routine 01/10/2024 10:26 AM PLUG STITCHER Pure hypercholesterolemia from Last 3 Months or Most Recently Relevant to Health Maintenance Results * XR Shoulder Right 2+ View (01/04/2025 11:29 AM PLUG STITCHER) Anatomical Region Laterality Modality Upper Extremities, Shoulder Right Comp uted Radiography 01/04/2025 2:50 PM PLUG STITCHER Impressions 01/04/2025 8:54 PM PLUG STITCHER 1. Unchanged right reverse total shoulder arthroplasty in near anatomic alignment. Dictated by: Guy Reece M.D. The radiology attending physician has personally reviewed this study, and had reviewed and/or edited this written report and agrees with it. Electronically signed by: Kenny Wilson D.O. Narrative 01/04/2025 8:54 PM PLUG STITCHER EXAMINATION: XR SHOULDER RIGHT 2 OR MORE VIEWS HISTORY: Status post right reverse total shoulder arthroplasty. COMPARISON: Comparison is made to prior radiographs dated 12/09/2024. FINDINGS: Unchanged right reverse total shoulder arthroplasty in near-anatomic alignment. No periprosthetic fracture. No osteolysis. Procedure Note Kenny Wilson, - 01/04/2025 EXAMINATION: XR SHOULDER RIGHT 2 [...] by: Kenny Wilson D.O. Morris Disla MD [facility] XR PROCEDURES Final Result * XR Shoulder Right 2+ View (12/09/2024 8:09 AM PLUG STITCHER) Anatomical Region Laterality Modality Upper Extremities, Shoulder Right Digi jimenez Radiography 12/09/2024 8:41 AM PLUG STITCHER Impressions 12/09/2024 8:41 AM PLUG STITCHER Reverse right total shoulder arthroplasty in expected position. Electronically signed by: Beckie Mojica M.D. Narrative 12/09/2024 8:41 AM PLUG STITCHER EXAMINATION: XR SHOULDER RIGHT 2 OR MORE [...] by: Beckie Mojica M.D. Morris Disla MD G XR PROCEDURES Final Result * Pulmonary Function Test - (11/27/2024 8:22 AM PLUG STITCHER) FVC PRE 4.81 L [facility] FVC %PRE PRED 119 % [facility] FEV1 PRE 3.61 L [facility] FEV1 %PRE PRED 117 % [facility] FEV1/FVC PRE 75.0 % [facility] Anatomical Region Laterality Modality PFT 11/27/2024 8:15 AM PLUG STITCHER Narrative 11/27/2024 10:43 AM PLUG STITCHER PFT performed at:->[facility] Adult PFT Lab- [facility]8D Procedure:->Spirometry Pulmonary Function [...] and %HbO2 is age dependent. However, the [facility] Pulmonary Function Laboratory defines hypoxemia as a PaO2 <56 mm Hg or a %HbO2 <89%. Jemma Marroquin KEY RINGER PFT ORDERABLES Final Result * eGFR (11/21/2024 4:30 AM PLUG STITCHER) eGFR >90 >=60 mL/min/1. 73 m2 Comment: [...] last reviewed 2021. Blood 11/21/2024 4:30 AM PLUG STITCHER 11/21/2024 4:36 AM PLUG STITCHER Morris Disla MD LAB BLOOD ORDERAB LES Final Result Performing Organization Address [facility] Co de Phone Number [facility] [address] [facility] [place] [address] * (ABNORMAL) Hemoglobin and hematocrit (11/21/2024 4:30 AM PLUG STITCHER) Pathologist [facility] Hgb 12.9(L) 13.0 - 17.5 g/dL Hct 39.0 38.9 - 50.3 % [facility] Blood 11/21/2024 4:30 AM PLUG STITCHER 11/21/2024 4:36 AM PLUG STITCHER Morris Disla MD LAB BLOOD ORDERAB LES Final Result Performing Organization Address [facility] Phone Number JOSE SORTOCH [phone] [email or web address] [facility] [employer] [place], [place] [id number] * (ABNORMAL) Basic metabolic panel (11/21/2024 4:30 AM PLUG STITCHER) Sodium 137 135 - 145 mmol/L Potassium, pl 4.4 3.3 - 4.9 mmol/L [facility] Chloride 103 97 - 110 mmol/L [facility] CO2 23 22 - 32 mmol/L [facility] Anion gap 12 2 - 15 mmol/L [facility] BUN 13 6 - 25 mg/dL [facility] Creatinine 0.70(L) 0.80 - 1.30 mg/dL [facility] Glucose 138 70 - 199 mg/dL [facility] Comment: Interpretive Data Fasting glucose >/= 126 [...] classification and Diagnosis of Diabetes Diabetes Care 202; 46: S19-S40. Current interpretive data was last revised 2022. Calcium 8.8 8.5 - 10.3 mg/dL JOSE CHENG Blood 11/21/2024 4:30 AM PLUG STITCHER 11/21/2024 4:36 AM PLUG STITCHER us Morris Disla MD LAB BLOOD ORDERAB LES Final Result [facility]N [facility] [address] [facility]. [place] [address] * XR Shoulder Right 2+ View (11/20/2024 3:29 PM PLUG STITCHER) Anatomical Region Laterality Modality Upper Extremities, Shoulder Right Comp uted Radiography 11/20/2024 3:33 PM PLUG STITCHER Impressions 11/20/2024 3:33 PM PLUG STITCHER 1. New reverse right total shoulder arthroplasty in expected position. Electronically signed by: Lm Matos M.D. Narrative 11/20/2024 3:33 PM PLUG STITCHER EXAMINATION: XR SHOULDER RIGHT 2 OR MORE [...] MD IMG XR PROCEDURES Final Result * ND AN ELECTIVE ENDOTRACHEAL AIRWAY, ND AN PROCEDURE PLACEHOLDER (11/20/2024 1:38 PM PLUG STITCHER) Rosa Isela Middleton ElizabethROLY Wilson - 11/20/2024 1:38 PM PLUG STITCHER Josephani ElizabethROLY Wilson 11/20/2024 1:39 PM Airway Patient location: OR Urgency: elective Indications for airway management: anesthesia Difficult airway: no Staff: Placed by: [employer] SUPERVISOR: Linda Middleton CRNA Emergent airway documentation: Risks [...] MD ANESTHESIA ORDERABLES Final Resu lt * ND AN PROCEDURE PLACEHOLDER (11/20/2024 12:57 PM PLUG STITCHER) Maria E Wilson MD - 11/20/2024 12:57 PM PLUG STITCHER Maria E Dickson MD 11/20/2024 12:57 PM [...] BW IP ANE LDA PERIPHERAL NERVE CATHETER, ND AN PROCEDURE PLACEHOLDER (11/20/2024 12:57 PM PLUG STITCHER) Narrative Maria E Dickson MD - 11/20/2024 12:57 PM PLUG STITCHER Maria E Dickson MD 11/20/2024 12:57 PM [...] short-bevel and echogenic Needle gauge: 21 G ([employer] NanoLine 21Gx68) Injection assessment: injection made incrementally [...] Resu lt * ABO/Rh (11/20/2024 11:45 AM PLUG STITCHER) ABO/Rh O Positive Blood 11/20/2024 11:4 5 AM PLUG STITCHER 11/20/2024 11:53 AM PLUG STITCHER Narrative JOSE CHENG - 11/20/2024 12:53 PM PLUG STITCHER Has the patient had Daratumumab or Isatuximab in the past 6 months?->Unknown Hiwot Arechigatiffany LAB BLOOD BANK TEST O RDERABLES Final Result Performing Organization Address [facility] Co de Phone Number JOSE SORTOCH [address] [facility]. Department [place] [address] * Antibody screen (11/20/2024 11:45 AM PLUG STITCHER) Silvana, indirect, Gel Interpretation Negative ABSC Blood 11/20/2024 11:4 5 AM PLUG STITCHER 11/20/2024 11:53 AM PLUG STITCHER Narrative JOSE CHENG - 11/20/2024 12:53 PM PLUG STITCHER Has the patient had Daratumumab or Isatuximab in the past 6 months?->Unknown Hiwot Ted Day LAB BLOOD BANK TEST O RDERABLES Final Result Performing Organization Address [facility] de Phone Number JOSE SORTOCH [phone] [address] [employer]. [place] [address] * CT Shoulder Right WO Contrast (11/02/2024 9:02 AM PLUG STITCHER) Anatomical Region Laterality Modality Upper Extremities Right Computed Tomog kindra 11/02/2024 10:4 9 AM PLUG STITCHER Impressions 11/02/2024 10:57 AM PLUG STITCHER 1. Severe right glenohumeral osteoarthritis with posterior [...] Hi Soriano M.D. Narrative 11/02/2024 10:57 AM PLUG STITCHER EXAMINATION: CT SHOULDER RIGHT WO CONTRAST HISTORY: post-traumatic osteoarthritis TECHNIQUE: Helical CT of the right shoulder without intravenous contrast. Multiplanar reconstructions. COMPARISON: Radiographs 10/12/2024 FINDINGS: Posterior decentering of the humeral head with [id number] articulation posteriorly with the glenoid. No significant [...] Posterior decentering of the humeral head with [id number] articulation posteriorly with the glenoid. No significant [...] it. Electronically signed by: Hi Soriano M.D. us Morris Disla MD IMG CT PROCEDURES Final Result * eGFR (11/02/2024 8:48 AM PLUG STITCHER) eGFR >90 >=60 mL/min/1. 73 m2 Comment: [...] last reviewed 2021. Blood 11/02/2024 8:48 AM PLUG STITCHER 11/02/2024 9:32 AM PLUG STITCHER us Morris Disla MD LAB BLOOD ORDERAB LES Final Result [facility] [address] [facility] [employer] [place] [address] * Differential, auto (11/02/2024 8:48 AM PLUG STITCHER) Neutrophil abs 4.3 1.5 - 6.5 K/cumm Imm gran abs 0.0 0.0 - 0.1 K/cumm [facility] Lymphocyte abs 1.4 0.8 - 3.3 K/cumm [facility] Monocyte abs 0.8 0.2 - 0.8 K/cumm [facility] Eosinophil abs 0.2 0.0 - 0.5 K/cumm [facility] Basophil abs 0.1 0.0 - 0.1 K/cumm [facility] Neutrophil pct 64.2 % [facility] Comment: Interpretive Data Percent cell count reference ranges are not reported, since discordance with absolute values may lead to misinterpretation of CBC data. Current Interpretive Data was last revised on 2018. Imm gran pct 0.5 % [facility] Comment: Interpretive Data Percent cell count reference ranges are not reported, since discordance with absolute values may lead to misinterpretation of CBC data. Current Interpretive Data was last revised on 2018. Lymphocyte pct 20.3 % [facility] Comment: Interpretive Data Percent cell count reference ranges are not reported, since discordance with absolute values may lead to misinterpretation of CBC data. Current Interpretive Data was last revised on 2018. Monocyte pct 11.3 % [facility] Comment: Interpretive Data Percent cell count reference ranges are not reported, since discordance with absolute values may lead to misinterpretation of CBC data. Current Interpretive Data was last revised on 2018. Eosinophil pct 2.9 % [facility] Comment: Interpretive Data Percent cell count reference ranges are not reported, since discordance with absolute values may lead to misinterpretation of CBC data. Current Interpretive Data was last revised on 2018. Basophil pct 0.8 % [facility] Comment: Interpretive Data Percent cell count reference ranges are not reported, since discordance with absolute values may lead to misinterpretation of CBC data. Current Interpretive Data was last revised on 2018. Blood 11/02/2024 8:48 AM PLUG STITCHER 11/02/2024 9:32 AM PLUG STITCHER Hiwot Ted Day KEY RINGER LAB BLOOD ORDERABLES Final Result Performing Organization Address City/[facility]/ZIP Co de Phone Number JOES CHENG [address] [facility] [address] [place], [place] [id number] * CBC with auto differential (11/02/2024 8:48 AM PLUG STITCHER) WBC 6.7 3.8 - 9.9 K/cumm Hgb 15.1 13.0 - 17.5 g/dL [facility] W Hct 45.3 38.9 - 50.3 % [facility] Plt 253 150 - 400 K/cumm [facility] W MPV 10.0 9.1 - 12.3 fL [facility] W RBC 4.80 4.30 - 5.80 M/cumm [facility] MCV 94.4 81.3 - 96.4 fL [facility] MCH 31.5 27.1 - 33.3 pg [facility] W MCHC 33.3 32.3 - 35.7 g/dL [facility] RDW CV 12.2 11.1 - 14.9 % [facility] RDW SD 43.1 35.7 - 48.1 fL [facility] NRBC abs 0.00 0.00 - 0.01 K/cumm [facility] Blood 11/02/2024 8:48 AM PLUG STITCHER 11/02/2024 9:32 AM PLUG STITCHER Hiwot Ted Day [employer]ER LAB BLOOD ORDERABLES Final Result JOSE GUPTACH [address] [email or web address] [facility] [place] [address] * ABO/Rh (11/02/2024 8:48 AM PLUG STITCHER) ABO/Rh O Positive Blood 11/02/2024 8:48 AM PLUG STITCHER 11/02/2024 9:32 AM PLUG STITCHER Narrative JOSE GUPTA - 11/02/2024 10:32 AM PLUG STITCHER Has the patient had Daratumumab or Isatuximab in the past 6 months?->Unknown Is this test being ordered in advance for a procedure?->Yes Expected date of procedure:->11/20/24 Has the patient been transfused in the past 3 months?->No Hiwot Day LAB BLOOD BANK TEST O RDERABLES Final Result Performing Organization Address [facility] de Phone Number [facility] [address] [facility] [place] [address] * Antibody screen (11/02/2024 8:48 AM PLUG STITCHER) [facility] Silvana, indirect, Gel Interpretation Negative ABSC Blood 11/02/2024 8:48 AM PLUG STITCHER 11/02/2024 9:32 AM PLUG STITCHER Narrative CHUCKIEIVÁN SORTODandre - 11/02/2024 10:32 AM PLUG STITCHER Has the patient had Daratumumab or Isatuximab in the past 6 months?->Unknown Is this test being ordered in advance for a procedure?->Yes Expected date of procedure:->11/20/24 Has the patient been transfused in the past 3 months?->No [facility] LAB BLOOD BANK TEST O RDERABLES Final Result Performing Organization Address [facility] Phone Number [facility] [address] [facility] [employer] [place], [place] [id number] * (ABNORMAL) Comprehensive metabolic panel (11/02/2024 8:48 AM PLUG STITCHER) [facility] Sodium 141 135 - 145 mmol/L Potassium, pl 4.7 3.3 - 4.9 mmol/L [facility] Chloride 103 97 - 110 mmol/L [facility] CO2 28 22 - 32 mmol/L [facility] Anion gap 10 2 - 15 mmol/L [facility] BUN 19 6 - 25 mg/dL [facility] Creatinine 0.73(L) 0.80 - 1.30 mg/dL [facility] Glucose 115 70 - 199 mg/dL [facility] Comment: Interpretive Data Fasting glucose >/= 126 [...] Units/L [facility] Blood 11/02/2024 8:48 AM PLUG STITCHER 11/02/2024 9:32 AM PLUG STITCHER Morris Disla MD LAB BLOOD ORDERAB LES Final Result Performing Organization Address City/State/ZIP Co or Phone Number JOSE SORTOCH [address] [facility] [place] [address] * XR Shoulder Right 2 or More Views (10/12/2024 8:16 AM PLUG STITCHER) Anatomical Region Laterality Modality Upper Extremities, Shoulder Right Comp uted Radiography 10/12/2024 10:2 7 AM PLUG STITCHER Impressions 10/12/2024 10:29 AM PLUG STITCHER 1. Severe right glenohumeral osteoarthritis. Dictated by: Reza Martinez MD The radiology attending physician has personally reviewed this study, and had reviewed and/or edited this written report and agrees with it. Electronically signed by: Lm Matos M.D. Narrative 10/12/2024 10:29 AM PLUG STITCHER EXAMINATION: XR SHOULDER RIGHT 2 OR MORE [...] * POCT lipid panel (01/10/2024 10:26 AM PLUG STITCHER) Cholesterol, POC 177 mg/dL HDL, POC 62 mg/dL Triglycerides, POC 131 mg/dL LDL Cholesterol POC 88 mg/dL Chol/HDL Ratio, POC 1.4 Non-HDL Cholesterol, POC 114 mg/dL Cholesterol Total, POC 177 mg/dL Capillary blood 01/10/2024 1 0:26 AM PLUG STITCHER us Carlos Harris MD POINT OF CARE TEST PEGGY OROZCO Edited Result - Final from Last 3 Months or Most Recently Relevant to Health Maintenance Insurance [employer] Member Subscriber Plan / Payer (Ef fective 2021-Present) Name:Elijah German Relation to Subscriber:Self Name:Elijah German Payer ID:[id number] Group ID:Not on file Type:COMMERCIAL Address: [facility] [address] [place], [place] [employer] [place] [employer] Member Subscriber Plan / Payer (Ef fective 2021-Present) Name:Elijah German Carolyn Relation to Subscriber:Self Name:Elijah German Payer ID:[id number] Group ID:Not on file Type:COMMERCIAL Address: [facility] [address] [place] [place] Advance Directives For more information, please contact: [phone] * Full Code (Latest Code Status on File) Date Activated Date Inactivated Comments 11/20/2024 4:14 PM 11/21/2024 2:41 PM * Full Code Date Activated Date Inactivated Comments 07/24/2020 9:35 PM 07/26/2020 8:39 PM Care Teams Chainstitch Zipper Setter Relationship Specialty Start Date End Date Edward De León MD PCP - General 12/27/17 Michael Bruno MD [address] [facility] [address] [address] Consulting Physician Orthopedic Surgery 07/26/20
--- OUTSIDE RECORDS SUMMARY | 2025-01-11 08:27 | XMS_ITS | Continuity of Care Document ---
Author Organization [facility] Address [address] [facility] [address] [place] [address] Phone Care Team Providers Care Panel Edge Painter Name Role Phone Abdulaziz LOPEZ, Oscar Unavailable Unavailab le Allergies, Adverse [...] visit Global/Postop followup visit Wrist Brace Tital Buford Arm Sling, Buford w/ strap 3 Carpal tunnel release Office/outpatient [...] Date Provider Providers Copied on Encounter [facility], [address], [id number], [phone] [facility] No Information 1 Abdulaziz Moore. [address], [id number] , [place]. tel: [phone] [facility], [address], [id number], tel:[phone] [facility] No Information 1 Damion ho. [address], [id number] , [place]. tel: [phone] [facility], [address], [id number], [phone] [facility] [employer] Right Femur (chief complaint) Displaced fracture of base of neck of right femur, sequelaPresence of right artificial hip joint 0 Abdulaziz Moore. [address] [facility], [address], [id number] , [place]. tel:[phone] Referring Provider: Senthil Leon, [address] [facility] [address], [place], [address]. tel:[phone] [facility], [address] [place] [address], [place], [place], [id number], [place] tel:[phone] [facility] No Information 0 Damion Az er. [address] [facility], [facility] [address], [place], [place], [id number] , [place]. tel:[phone] [facility], [address] [place] [address], [place], [place], [id number], [place] tel:[phone] [facility] Right Femur (chief complaint) Displaced fracture of base of neck of right femur, sequelaPresence of right artificial hip joint 0 Abdulaziz Moore. [address] [place] [address], [place] [address], [place], [place], [id number] , [place]. tel:[phone] Referring Provider: Senthil Leon, [address] [facility] Suite [facility], [place], [address]. tel:[phone] [facility], [address] [place] [address], [place], [place], [id number], [place] tel:[phone] [facility] Intracapsular fracture of right femur, initial encounter for closed fracture 0 Damion Az er. [address] [facility], [facility] [address], [place], [place], [id number] , [place]. tel:[phone] Initial hospital care, moderate [facility], [address] [place] [address], [place], [place], [id number], [place] tel:[phone] [facility] No Information 0 Damion Az er. [address] [facility], [facility] [address], [place], [place], [id number] , [place]. tel: [phone] Referring Provider: Senthil Leon, [address] [facility] [address], [place], [address]. tel:[phone] [facility], [address] [address], [place], [place], [address], [place] tel:[phone] [facility] Carpal Tunnel Syndrome Mar-2 2-201 3 Strecker Randy. [address] [facility], [place] [address], [place], [place], [id number] , [place]. tel:[phone] Referring Provider: Senthil Leon, [address] [facility] [address], [place], [address]. tel:[phone] [facility], [address] [address], [place], [place], [address], [place] tel:[phone] [facility] Carpal Tunnel Syndrome Mar-0 1-201 3 Strecker Randy. [address] [place] [address], [place], [place], [address] , [place]. tel:[phone] Referring Provider: Senthil Leon, [address] [facility] Suite [facility], [place], [address]. tel:[phone] [facility], [address] [place] [address], [place], [place], [id number], [place] [phone] [facility] No Information Jan-2 0-201 3 Strecker Randy. [address] [place] [address], [place] [address], [place], [place], [address] , [place]. tel:[phone] Referring Provider: Senthil Leon, [facility] [address], [place], [address]. tel:[phone] Office/outpa tient visit,est, mod [facility], [address] [place] [address], [place], [place], [address], [place] tel:[phone] [facility] Carpal Tunnel Syndrome Feb-1 8-201 3 Strecker Randy. [address] [place] [address], [place] [address], [place], [place], [id number] , [place]. tel: [phone] Referring Provider: Michael Tong, [address] [facility] [address] [facility], [place], [address]. tel:[phone] [facility], [address] [address], [place], [place], [id number], [place] tel:[phone] [facility] Carpal Tunnel Syndrome Fe 3 Sanchez Bernardo er. [address] [facility], [place] [address], [place], [place], [id number] , [place]. tel: [phone] Referring Provider: Cathy Tong, [address] [place] [address], [place], [address]. tel:[phone] Office/outpa tient visit,est, [facility], [facility] [place] [address], [place], [place], [address], [place] [phone] [facility] BRACHIAL NEURITIS NOS 3 Ayaan Morgan. [address] [place] [address], [place], [place], [address] , [place]. tel:[phone] Referring Provider: Senthil Leon, [address] [address], [place], [address]. tel:[phone] Office/outpa tient visit,est, [facility], [address] [address], [place], [place], [id number], [place] [phone] [facility] DISC DIS NEC/NOS-CERV 2 Abtori Morgan. [address] [place] [address], [place], [place], [address] , [place]. tel:[phone] Referring Provider: Senthil Leon, [address] [address], [place], [address]. tel:[phone] Office/outpa tient visit,est, [facility], [address] [address], [place], [place], [address], [place] tel:[phone] [facility] DISC DIS NEC/NOS-CERVPAI N IN LIMB Apr-1 0-201 2 Abeln Cathy. [address] [facility], [address], [place], [place], [address] , [place]. tel:[phone] Referring Provider: Senthil Leon, [address] [facility] [address], [place], [address]. tel:[phone] [facility], [address] [facility] [address], [place], [place], [id number], [place] [phone] [facility] CERVICAL DISC DISPLACMNT Apr-0 2-201 2 [facility]. [address] [facility], [address], [place], [place], [address] , [place]. tel: [phone] Referring Provider: Senthil Leon, [facility]0 [facility] [address], [place], [address]. tel:[phone] Office/outpa tient visit,est, [facility], [address] [facility] [address], [place], [place], [address], [place] [phone] [facility] CERVICAL SPONDYLOSISBRAC HIAL NEURITIS NOSCERVICALGIA Apr-0 2-201 2 Abeln Cathy. [address] [facility], [facility] [address], [place], [place], [address] , [place]. tel: [phone] Office/outpa tient visit,est, [facility], [address] [facility] [address], [place], [place], [address], [place] [phone] [facility] CARPAL TUNNEL SYNDROME Cal- 5 1 Mone Padilla. [address] [facility], [facility] [address], [place], [place], [address] , [place]. tel:[phone] Referring Provider: Nikos Rogers, [address] [facility], [place], [address]. tel:[phone] Office consultation , [facility], [address], [place], [place], [address], [place] tel:[phone] [facility] MONONEURITIS ARM NOSCERVICALGIA 1 Mone Padilla. [address] [facility], [address], [place], [place], [address] , [place]. tel: [phone] Referring Provider: Nikos Rogers, [address] [facility], [place], [address]. tel:[phone] Family History Family Member Type Diagnosis Age At Onset Father Problem (finding) Cancer, unknown Father Problem (finding) Heart Disease Payers Payer name Insurance type Covered libertarian ID Authoraldoa fco(s) Leon Blue Cross Blue Shiel d [facility] [id number] Social History Type Description Quantity Date Captured [...]
[2025-01-11 08:54] LABS: Hematocrit 44.1 % (42.0-52.0); Hemoglobin 14.4 g/dL (14.0-18.0); Mean Corpuscular HGB Conc 32.7 g/dl (32-36); Mean Corpuscular Hemoglobin 30.3 pg (26-34); Mean Corpuscular Volume 92.8 fl (80-100); Mean Platelet Volume 10.1 fl (7.4-10.4); Platelet Count Result 267 k/mm3 (150-375); Red Blood Count 4.75 M/mm3 (4.6-6.20); Red Cell Distribution Width 12.6 % (11.5-14.5); White Blood Count 7.9 K/mm3 (4.5-10.0)
[2025-01-11 09:06] LABS: Anion Gap 10 mmol/L (4-12); Blood Urea Nitrogen 19 mg/dL (9-20); Calcium 9.1 mg/dL (8.4-10.2); Carbon Dioxide 27 mmol/L (22-30); Chloride 104 mmol/L (98-107); Estimated Glomerular Filt Rate > 60; Glucose 118 mg/dL (65-110); Iron 72 ug/dL (49-181); Potassium 4.5 mmol/L (3.4-5.0); Sodium 141 mmol/L (137-145)
[2025-01-11 09:16] LABS: Percent Iron Saturation 22 % (20-50)
== END 2025-01-11 08:20 | disposition home or self-care (01) ==
LOC: ANHLAB 08:20
PROVIDERS: PCP Family Medicine; Visit Provider Nurse Practitioner Family
DX: D64.9 Anemia, unspecified (principal); N28.9 Disorder of kidney and ureter, unspecified
CPT/HCPCS: 36415; 80048; 83540; 83550; 85027

== ENCOUNTER 2025-02-26 13:50 | Outpatient (CLI) | payer MEDICARE, OTHER, SELFPAY ==
--- NOTE | ~2025-02-26 | US_ITS ---
US renal BI 02/26/2025 14:40 Procedure: Realtime transabdominal ultrasound of the kidneys and bladder. Indication: Renal cyst Comparison: No prior studies for comparison. Findings: Renal echotexture is normal bilaterally without hydronephrosis, contour deforming mass or r enal calculus. There is a 1.1 cm right cyst. The right kidney measures 10.7 cm and left kidney measur es 11.7 cm. Bladder within normal limits. Impression: 1: Right renal cyst measuring 11 mm. Reviewed, dictated and finalized at location A. Impression: 1: Right renal cyst measuring 11 mm.
--- OUTSIDE RECORDS SUMMARY | 2025-02-26 13:55 | XMS_ITS | Clinical Summary ---
[facility] D Address [address] [place] [id number] Care Team Providers Care Leather Stitcher Name Role Phone Edward De León MD Primary Care Provider [phone] Michael Bruno MD Unavailable [phone] Allergies Active Allergy Reactions Criticality Noted Date Comments Rosuvastatin Muscle pain Medium 01/11/2025 Muscle pain/cramps with 40 mg dose Medications pyridoxine (vitamin B-6) 250 mg tablet take 1 tablet by oral route every day 0 0 01/09/20 16 Active loratadine (CLARITIN) 10 mg tabletIndication s:Allergic Rhinitis Take 1 tablet (10 mg total) by mouth every morning Active multivitamin capsuleIndicatio ns:Vitamin Deficiency Prevention Take 1 capsule by mouth every morning Active aspirin 81 mg enteric coated tabletIndication s:Amaurosis fugax,Amaurosis fugax of right eye TAKE 1 TABLET BY MOUTH EVERY DAY 90 tablet 3 07/29/20 24 Active clopidogreL (PLAVIX) 75 mg tabletIndication s:Amaurosis fugax,Amaurosis fugax of right eye TAKE 1 TABLET BY MOUTH EVERY DAY 90 tablet 3 07/29/20 24 Active lisinopriL (PRINIVIL,ZESTRI L) 5 mg tabletIndication s:Essential hypertension TAKE 1 TABLET (5 MG TOTAL) BY MOUTH EVERY MORNING 90 tablet 1 10/01/20 24 025 Active ascorbic acid (vitamin C) 1,000 mg tabletIndication s:Vitamin C Deficiency Take 1 tablet (1,000 mg total) by mouth every morning Active omega-3 fatty acids-fish oil 300-1,000 mg capsuleIndicatio ns:supplement Take 1 capsule (1 g total) by mouth every morning Active celecoxib (CeleBREX) 100 mg capsule Take 1 capsule (100 mg total) by mouth 2 (two) times a day 60 capsule 12/22/19 25 Active amLODIPine (NORVASC) 10 mg tabletIndication s:Essential hypertension TAKE 1 TABLET (10 MG TOTAL) BY MOUTH EVERY MORNING 90 tablet 1 02/23/20 25 026 Active amLODIPine (NORVASC) 10 mg tabletIndication s:Essential hypertension TAKE 1 TABLET (10 MG TOTAL) BY MOUTH EVERY MORNING 90 tablet 1 10/01/20 24 025 Discontinued oxyCODONE (ROXICODONE) 5 mg immediate release tabletIndication s:Pain Take 1 tablet (5 mg total) by mouth every 4 (four) hours as needed for pain 20 tablet 11/21/20 24 025 Discontinued(Th erapy completed) atorvastatin (LIPITOR) 20 mg tabletIndication s:Pure hypercholesterol emia,Bilateral carotid bruits Take 1 tablet (20 mg total) by mouth daily 90 tablet 3 01/11/20 25 025 Discontinued(Al ternate therapy) Active Problems Problem Noted Date Diagnosed Date Solitary pulmonary nodule 11/27/2024 Osteoarthritis of right shou lder, unspecified osteoarthritis type 11/20/2024 Post-traumatic osteoarthritis of right shoulder 10/12/2024 Left carpal tunnel syndrome 04/25/2023 Closed displaced fracture of left clavicle with delayed healing 07/23/2022 Overview (07/23/2022): Added automatically from request for surgery [id number] History of right hip replacement 08/15/2020 04/23/2023 Essential hypertension 07/24/2020 Hyperlipidemia 07/24/2020 Alcohol use 07/24/2020 Closed subcapital fracture of neck of right femu r 07/24/2020 Dehydration 07/24/2020 Pain in shoulder 10/10/2017 Encounters Date Type Department Care Team Description 02/10/2025 10:15 AM CDT Office Visit [facility] Orthopaedic Surgery [address] [facility] Medical Office Building [address] [place] [phone] Morris Disla MD S/P reverse total shoulder arthroplasty, right (Primary Dx) 02/10/2025 10:10 AM CDT - 02/10/2025 11:59 PM CDT Hospital Encounter [address] [place] [phone] S/P reverse total shoulder arthroplasty, right Discharge Disposition: Discharge to home or self care 02/03/2025 1:30 PM HIV/AIDS CARE NURSE Office Visit [facility] Cardiology [address] [place] [address] [address] [address] Carlos Harris MD Hyperlipidemia, unspecified hyperlipidemia type (Primary Dx); Bilateral carotid bruits; Amaurosis fugax; Pure hypercholesterolemia; Statin intolerance 01/11/[address] [place] [address] Carlos Harris MD Med Management 01/04/2025 11:40 AM HIV/AIDS CARE NURSE Office Visit [facility] Orthopaedic Surgery [address] [place] [address] 2[address] [place] [phone] Morris Disla MD S/P reverse total shoulder arthroplasty, right (Primary Dx) 01/04/2025 11:20 AM HIV/AIDS CARE NURSE - 01/04/2025 11:59 PM HIV/AIDS CARE NURSE Hospital Encounter [facility] [address] [place] [address] S/P reverse total shoulder arthroplasty, right Discharge Disposition: Discharge to home or self care 12/22/[address] 8th [place] [address] [place] [phone] Tara Turner CMA 12/22/[address] [place] [address] Carlos Harris MD Med Management 12/22/2024 Orders Only [facility] Orthopaedic Surgery [address] [facility] 2nd Floor [address] [place] [address] Morris Disla MD 12/18/2024 Telephone [facility] Orthopaedic Surgery [address] [facility] 2nd Floor [address] [place] [address] Morris Disla MD 12/09/2024 8:01 AM HIV/AIDS CARE NURSE - 12/09/2024 11:59 PM HIV/AIDS CARE NURSE Hospital Encounter [address] [place] [address] S/P reverse total shoulder arthroplasty, right Discharge Disposition: Discharge to home or self care 12/09/2024 8:00 AM HIV/AIDS CARE NURSE Office Visit [facility] Orthopaedic Surgery [address] [place] [address] Medical Office Building [address] [place] [address] Morris Disla MD S/P reverse total shoulder arthroplasty, right (Primary Dx) from Last 3 Months Immunizations Immunization Administration Dates Next Due Tdap 10/14/2023,02/15/2022 ZOSTER [...] on file Legal Sex Male 10:38 AM HIV/AIDS CARE NURSE Gender Identity Male 10/31/2024 2:37 PM HIV/AIDS CARE NURSE Sexual Orientation Not on file Obstetrics History Last Filed Vital Signs Vital Sign Reading Time Taken Comments Blood Pressure 126/72 02/03/2025 1:38 PM HIV/AIDS CARE NURSE Pulse 57 02/03/2025 1:38 PM HIV/AIDS CARE NURSE Temperature 36.4 C (97.5 F) 11/27/2024 9:31 AM HIV/AIDS CARE NURSE Respiratory Rate 16 11/27/2024 9:31 AM HIV/AIDS CARE NURSE Oxygen Saturation 97% 02/03/2025 1:38 PM HIV/AIDS CARE NURSE Inhaled Oxygen Concentration - - Weight 83.9 kg (185 lb) 02/03/2025 1:38 PM HIV/AIDS CARE NURSE Height 172.7 cm (5' 8 ) 11/27/2024 9:31 AM HIV/AIDS CARE NURSE Body Mass Index 28.13 11/27/2024 9:31 AM HIV/AIDS CARE NURSE Plan of Treatment Health Maintenance Due Date Last Done Comments Albumin Creatinine Ratio, Urine 1955 Colon Cancer Screening-Colonoscopy 1956 Depression Screening 1956 Hemoglobin A1C 1956 Hepatitis C Screening 1956 Prostate Cancer Screening-PSA 1956 Dilated Eye Exam 1956 Foot Exam 1956 Hepatitis B Screening 1974 Pneumococcal vaccine 65+ (1 of 2 - PCV) 1975 Well Visit 65+ 2021 Zoster Vaccine (2 of 2) 12/09/2023 10/14/2023 Influenza Vaccine (#1) 2024 Fall Risk Assessment 11/21/2025 11/21/2024 eGFR 11/21/2025 11/21/2024, 12/01/2024, 07/26/2020, Additional history exists Lipid Panel 02/03/2026 02/03/2025, 02/0 08/2024, 11/30/2022, Additional history exists DTaP/Tdap/Td Vaccine (3 - Td or Tdap) 10/14/2033 10/14/2023, 02/15/2022 Medical Devices Implanted Type Area Sausage Meat Trimmer Device Identifier Shelf Expiration Date Model / Serial / Lot Shoulder Replacement Left: Shoulder Screws Right: Ankle [employer] [id number] 46mm Modular Dual Mobility Primary Hip F Liner Acetabular Cocr - [id number] Implanted:Qty: 1 on 07/25/2020 by Michael Bruno MD at [facility] Right: Hip [employer] 06/22/2025 [id number] / / [id number] [employer] 702-04-58f Shell Acetabular Trident Ii Tritanium F Od58mm Hip 5 Screw Hole Cluster Sterile - [id number] Implanted:Qty: 1 on 07/25/2020 by Michael Bruno MD at [facility] Right: Hip [employer] [id number] 01/18/2025 702-04-58F / / [id number] [employer] 3859-1861 Screw Bone Trident Ii L50mm Od6.5mm Low Profile Hexagonal Sterile - [id number] Implanted:Qty: 1 on 07/25/2020 by Michael Bruno MD at [facility] Right: Hip [employer] [id number] 07/15/2024 6514-7653 / / [id number] [employer] [id number] Screw Bone Trident Ii L40mm Od6.5mm Low Profile Hexagonal Sterile - [id number] Implanted:Qty: 1 on 07/25/2020 by Michael Bruno MD at [facility] Right: Hip [employer] [id number] 08/04/2024 4765-2763 / / [id number] [employer] [id number] Screw Bone Trident Ii L40mm Od6.5mm Low Profile Hexagonal Sterile - [id number] Implanted:Qty: 1 on 07/25/2020 by Michael Bruno MD at [facility] Right: Hip [employer] [id number] 08/04/2024 8731-8790 / / [id number] [employer] [id number] Screw Bone Trident Ii L25mm Od6.5mm Low Profile Hexagonal Sterile - [id number] Implanted:Qty: 1 on 07/25/2020 by Michael Bruno MD at [facility] Right: Hip [employer] [id number] 10/12/2024 4578-4169 / / [id number] [employer] [id number] Adm Mobile Bearing Hip Yazdanism 46mm 52mm 28mm 8.9mm Hip - [id number] Implanted:Qty: 1 on 07/25/2020 by Michael Bruno MD at [facility] Right: Hip [employer] DUP [id number] 11/08/2024 [id number] / / [id number] [employer] 9218-8011 Accolade 114mm 37mm Modular Hip 127d 7 Taper Stem Femoral Sterile - [id number] Implanted:Qty: 1 on 07/25/2020 by Michael Bruno MD at [facility] Right: Hip [employer] [id number] 05/18/2025 0636-7282 / / [id number] [employer] 6570-0-228 V40 28mm Hip +4mm Offset Taper Head Femoral Biolox Delta - [id number] Implanted:Qty: 1 on 07/25/2020 by Michael Bruno MD at [facility] Right: Hip [employer] [id number] 05/29/2025 6570-0-228 / / [id number] [employer] 2.3mm 14mm Nontoggle Hexagonal Cortical Screw Bone Titanium Co-N2314 - [id number] Implanted:Qty: 1 on 07/26/2022 by Kadeem Salazar MD at [facility] Left: Clavicle [employer] CO-N2314 / / [employer] [id number] 11mm 12 Hole Clavicle Left Distal Superior Plate Bone 70-0112 - [id number] Implanted:Qty: 1 on 07/26/2022 by Kadeem Salazar MD at [facility] Left: Clavicle [employer] 70-0112 / / Description:ACUMED INC 101X1 4MM 11MM 12 HOLE CLAVICLE LEFT DISTAL SUPERIOR PLATE BONE 70-0112 - [id number] [employer] 3.5mm 12mm Hexalobe Screw Bone Titanium Nonsterile Small Fragment [id number] - [id number] Implanted:Qty: 2 on 07/26/2022 by Kadeem Salazar MD at [facility] Left: Clavicle [employer] [id number] / / [employer] 3.5mm 14mm Hexalobe Screw Bone Titanium Nonsterile Small Fragment 30-0258 - [id number] Implanted:Qty: 5 on 07/26/2022 by Kadeem Salazar MD at [facility] Left: Clavicle [employer] 30-0258 / / [employer] 3.5mm 16mm Lock Hexalobe Screw Bone Titanium Nonsterile Small 384161 - [id number] Implanted:Qty: 1 on 07/26/2022 by Kadeem Salazar MD at [facility] Left: Clavicle [employer] [id number] / / [employer] Inc 3.5mm 14mm Locking Hexalobe Elbow Screw Bone Sterile 30-0235-S - [id number] Implanted:Qty: 2 on 07/26/2022 by Kadeem Salazar MD at [facility] Left: Clavicle [employer] 30-0235-S / / [employer] Comprehensive Taper Adapter 25mm Mini Baseplate Glenoid Reverse [id number] - [id number] Implanted:Qty: 1 on 11/20/2024 at [facility] Right: Shoulder [employer] 03/08/2034 [id number] / / [id number] [employer] Comprehensive 6.5mm 25mm Central Hexagonal 3.5mm Screw Bone [id number] - [id number] Implanted:Qty: 1 on 11/20/2024 at [facility] Right: Shoulder [employer] 09/15/2034 [id number] / / [id number] [employer] Comprehensive 4.75mm 30mm Fix Angle Lock Hexagonal 3.5mm Screw 516256 - [id number] Implanted:Qty: 1 on 11/20/2024 at [facility] Right: Shoulder [employer] 10/12/2034 [id number] / / [id number] [employer] Comprehensive Versa-Dial 36mm Glenosphere Color Coded Shoulder +3 [id number] - [id number] Implanted:Qty: 1 on 11/20/2024 at [facility] Right: Shoulder [employer] 10/01/2034 [id number] / / [id number] [employer] Comprehensive 4.75mm 30mm Fix Angle Lock Hexagonal 3.5mm Screw 796924 - [id number] Implanted:Qty: 1 on 11/20/2024 at [facility] Right: Shoulder [employer] 10/12/2034 [id number] / / [id number] [employer] Comprehensive 4.75mm 15mm Fix Angle Lock Hexagonal 3.5mm Screw 434198 - [id number] Implanted:Qty: 1 on 11/20/2024 at [facility] Right: Shoulder [employer] 07/02/2034 [id number] / / [id number] [employer] Stem Humeral Shoulder Reverse Standard Size 14 Identity [id number] - [id number] Implanted:Qty: 1 on 11/20/2024 at [facility] Right: Shoulder [employer] 11/18/2033 [id number] / / [id number] [employer] Humeral Tray Neutral -6mm Ext Sahtnem6 - [id number] Implanted:Qty: 1 on 11/20/2024 at [facility] Right: Shoulder [employer] 08/17/2034 [id number] / / [id number] [employer] Bearing Humeral Comprehensive Vivacit-E +3mm Od36mm Shoulder Reverse Retentive [id number] - [id number] Implanted:Qty: 1 on 11/20/2024 at [facility] Right: Shoulder [employer] 05/25/2029 [id number] / / [id number] Explanted Type Area Sausage Meat Trimmer Device Identifier Shelf Expiration Date Model / Serial / Lot Sarah Gould 3.5mm 12mm Hexalobe Screw Bone Titanium Nonsterile Small Fragment [id number] - [id number] Explanted:Qty: 1 on 07/26/2022 at [facility] Left: Clavicle [employer] [id number] / / Procedures Procedure Name Priority Date/Time Associated Diagnosis Comments XR SHOULDER RIGHT 2 OR MORE VIEWS Schedule Routine, Read Routine (OP Routine) 02/10/2025 10:17 AM CDT S/P reverse total shoulder arthroplasty, right POCT LIPID PANEL Routine 02/03/2025 1:45 PM HIV/AIDS CARE NURSE Hyperlipidemia, unspecified hyperlipidemia type XR SHOULDER RIGHT 2 OR MORE VIEWS Schedule Routine, Read Routine (OP Routine) 01/04/2025 11:29 AM HIV/AIDS CARE NURSE S/P reverse total shoulder arthroplasty, right XR SHOULDER RIGHT 2 OR MORE VIEWS Schedule Routine, Read Routine (OP Routine) 12/09/2024 8:09 AM HIV/AIDS CARE NURSE S/P reverse total shoulder arthroplasty, right EGFR Routine 11/21/2024 4:30 AM HIV/AIDS CARE NURSE from Last 3 Months or Most Recently Relevant to Health Maintenance Results * XR Shoulder Right 2+ View (02/10/2025 10:17 AM CDT) Anatomical Region Laterality Modality Upper Extremities, Shoulder Right Digi jimenez Radiography 02/10/2025 10:3 6 AM CDT Impressions 02/10/2025 10:36 AM CDT No widening or separation of the acromioclavicular joint. There is a reverse right total shoulder arthroplasty in near-anatomic alignment. No evidence of hardware loosening or migration or periprosthetic fracture. Electronically signed by: Clarita Wilson M.D. Narrative 02/10/2025 10:36 AM CDT EXAMINATION: 2 VIEWS OF THE RIGHT SHOULDER DATE: 02/10/2025 10:30 AM COMPARISON: 01/04/2025 and priors dating back to 10/12/2024 HISTORY: s/p Right reverse total shoulder arthroplasty s/p Right reverse total shoulder arthroplasty Procedure Note Clarita Wilson MD - 02/10/2025 EXAMINATION: 2 VIEWS OF THE RIGHT SHOULDER DATE: 02/10/2025 10:30 AM COMPARISON: 01/04/2025 and priors dating back to 10/12/2024 HISTORY: s/p Right reverse total shoulder arthroplasty s/p Right reverse total shoulder arthroplasty IMPRESSION: No widening or separation of the acromioclavicular joint. There is a reverse right total shoulder arthroplasty in near-anatomic alignment. No evidence of hardware loosening or migration or periprosthetic fracture. Electronically signed by: Clarita Wilson M.D. Morris Disla MD IMG XR PROCEDURES Final Result * POCT lipid panel (02/03/2025 1:45 PM HIV/AIDS CARE NURSE) Cholesterol, POC 178 mg/dL HDL, POC 52 mg/dL Triglycerides, POC 197 mg/dL LDL Cholesterol POC 87 mg/dL Chol/HDL Ratio, POC 1.7 Non-HDL Cholesterol, POC 126 mg/dL Cholesterol Total, POC 178 mg/dL Capillary blood 02/03/2025 1 :45 PM HIV/AIDS CARE NURSE Carlos Harris MD POINT OF CARE TEST PEGGY OROZCO Final Result * XR Shoulder Right 2+ View (01/04/2025 11:29 AM HIV/AIDS CARE NURSE) Anatomical Region Laterality Modality Upper Extremities, Shoulder Right Comp uted Radiography 01/04/2025 2:50 PM HIV/AIDS CARE NURSE Impressions 01/04/2025 8:54 PM HIV/AIDS CARE NURSE 1. Unchanged right reverse total shoulder arthroplasty in near anatomic alignment. Dictated by: Guy Reece M.D. The radiology attending physician has personally reviewed this study, and had reviewed and/or edited this written report and agrees with it. Electronically signed by: Kenny Wilson D.O. Narrative 01/04/2025 8:54 PM HIV/AIDS CARE NURSE EXAMINATION: XR SHOULDER RIGHT 2 OR MORE [...] Shoulder Right 2+ View (12/09/2024 8:09 AM HIV/AIDS CARE NURSE) Anatomical Region Laterality Modality Upper Extremities, Shoulder Right Digi jimenez Radiography 12/09/2024 8:41 AM HIV/AIDS CARE NURSE Impressions 12/09/2024 8:41 AM HIV/AIDS CARE NURSE Reverse right total shoulder arthroplasty in expected position. Electronically signed by: Beckie Mojica M.D. Narrative 12/09/2024 8:41 AM HIV/AIDS CARE NURSE EXAMINATION: XR SHOULDER RIGHT 2 OR MORE [...] MD IMG XR PROCEDURES Final Result * eGFR (11/21/2024 4:30 AM HIV/AIDS CARE NURSE) eGFR >90 >=60 mL/min/1. 73 m2 Comment: [...] last reviewed 2021. Blood 11/21/2024 4:30 AM HIV/AIDS CARE NURSE 11/21/2024 4:36 AM HIV/AIDS CARE NURSE us Morris Disla MD LAB BLOOD ORDERAB LES Final Result [facility] [id number] [facility]. [place] [address] from Last 3 Months or Most Recently Relevant to Health Maintenance Insurance [employer] Member Subscriber Plan / Payer (Ef fective 2021-Present) Name:Samy German Relation to Subscriber:Self Name:Samy German Payer ID:[id number] Group ID:Not on file Type:COMMERCIAL Address: [address] MEDICARE [employer] [facility] [place] Member Subscriber Plan / Payer ( fective 2021-Present) Name:Timothymariah Smay Carolyn Relation to Subscriber:Self Name:Samy German Carolyn Payer ID:[id number] Group ID:Not on file Type:COMMERCIAL Address: [facility] [address] Advance Directives For more information, please contact: [phone] * Full Code (Latest Code Status on File) Date Activated Date Inactivated Comments 11/20/2024 4:14 PM 11/21/2024 2:41 PM * Full Code Date Activated Date Inactivated Comments 07/24/2020 9:35 PM 07/26/2020 8:39 PM Care Teams Leather Stitcher Relationship Specialty Start Date End Date Edward De León MD PCP - General 12/27/17 Michael Bruno MD [address] [address] Consulting Physician Orthopedic Surgery 07/26/20
--- OUTSIDE RECORDS SUMMARY | 2025-02-26 13:55 | XMS_ITS | Referral Summary ---
Author Organization [facility] Building D Address [address] [place] [phone] Care Team Providers Care Gis Professor Name Role Phone Edward De León MD Primary Care Provider + [phone] Michael Bruno MD Unavailable [phone] Encounters Date Type Department Care Team Description 02/10/2025 10:10 AM CDT - 02/10/2025 11:59 PM CDT Hospital Encounter [address] [place] [phone] S/P reverse total shoulder arthroplasty, right Discharge Disposition: Discharge to home or self care 02/10/2025 10:15 AM CDT Office Visit [facility] Orthopaedic Surgery [address] [place] [address] Medical Office Building [address] [place] [phone] Morris Disla MD S/P reverse total shoulder arthroplasty, right (Primary Dx) 02/03/2025 1:30 PM MEDICATION RECONCILIATION TECHNICIAN Office Visit [facility] Cardiology [address] [place] [phone] Carlos Harris MD Hyperlipidemia, unspecified hyperlipidemia type (Primary Dx); Bilateral carotid bruits; Amaurosis fugax; Pure hypercholesterolemia; Statin intolerance 01/11/2025 Telephone [facility] Cardiology [address] [place] [address] [address] [address] Carlos Harris MD Med Management 01/04/2025 11:20 AM MEDICATION RECONCILIATION TECHNICIAN - 01/04/2025 11:59 PM MEDICATION RECONCILIATION TECHNICIAN Hospital Encounter [facility] [address] [place] [address] S/P reverse total shoulder arthroplasty, right Discharge Disposition: Discharge to home or self care 01/04/2025 11:40 AM MEDICATION RECONCILIATION TECHNICIAN Office Visit [facility] Orthopaedic Surgery [address] [facility] 2nd Floor [address] [place] [address] Morris Disla MD S/P reverse total shoulder arthroplasty, right (Primary Dx) 12/22/2024 Telephone [facility] Pulmonary [facility] 8th [place] [address] [place] [address] Tara Turner CMA 12/22/2024 Telephone [facility] Cardiology [address] [facility] [address] [place] [address] Carlos Harris MD Med Management 12/22/2024 Orders Only [facility] Orthopaedic Surgery [address] [place] [address] [address] [place] [phone] Morris Disla MD 12/18/2024 Telephone [facility] Orthopaedic Surgery [address] [place] [address] [address] [place] [phone] Morris Disla MD 12/09/2024 8:01 AM MEDICATION RECONCILIATION TECHNICIAN - 12/09/2024 11:59 PM MEDICATION RECONCILIATION TECHNICIAN Hospital Encounter [address] [place] [address] S/P reverse total shoulder arthroplasty, right Discharge Disposition: Discharge to home or self care 12/09/2024 8:00 AM MEDICATION RECONCILIATION TECHNICIAN Office Visit [facility] Orthopaedic Surgery [address] [place] [address] Medical Office Building [address] [place] [address] Morris Disla MD S/P reverse total shoulder arthroplasty, right (Primary Dx) from Last 3 Months Allergies Active Allergy Reactions Criticality Noted Date [...] (07/23/2022): Added automatically from request for surgery [id number] History of right hip replacement 08/15/2020 04/23/2023 Essential hypertension 07/24/2020 Hyperlipidemia 07/24/2020 Alcohol use 07/24/2020 Closed subcapital fracture of neck of right femu r 07/24/2020 Dehydration 07/24/2020 Pain in shoulder 10/10/2017 Immunizations Immunization Administration Dates Next Due Tdap [...] on file Legal Sex Male 10:38 AM MEDICATION RECONCILIATION TECHNICIAN Gender Identity Male 10/31/2024 2:37 PM MEDICATION RECONCILIATION TECHNICIAN Sexual Orientation Not on file Last Filed Vital Signs Vital Sign Reading Time Taken Comments Blood Pressure 126/72 02/03/2025 1:38 PM MEDICATION RECONCILIATION TECHNICIAN Pulse 57 02/03/2025 1:38 PM MEDICATION RECONCILIATION TECHNICIAN Temperature 36.4 C (97.5 F) 11/27/2024 9:31 AM MEDICATION RECONCILIATION TECHNICIAN Respiratory Rate 16 11/27/2024 9:31 AM MEDICATION RECONCILIATION TECHNICIAN Oxygen Saturation 97% 02/03/2025 1:38 PM MEDICATION RECONCILIATION TECHNICIAN Inhaled Oxygen Concentration - - Weight 83.9 kg (185 lb) 02/03/2025 1:38 PM MEDICATION RECONCILIATION TECHNICIAN Height 172.7 cm (5' 8 ) 11/27/2024 9:31 AM MEDICATION RECONCILIATION TECHNICIAN Body Mass Index 28.13 11/27/2024 9:31 AM MEDICATION RECONCILIATION TECHNICIAN Plan of Treatment Not on file Medical Devices Implanted Type Area Pin Chaser Device Identifier Shelf Expiration Date Model / Serial / Lot Shoulder Replacement Left: Shoulder Screws Right: Ankle [employer] [id number] 46mm Modular Dual Mobility Primary Hip F Liner Acetabular Cocr - [id number] Implanted:Qty: 1 on 07/25/2020 by Michael Bruno MD at [facility] Right: Hip [employer] 06/22/2025 [id number] / / [id number] [employer] 702-04-58f Shell Acetabular Trident Ii Tritanium F Od58mm Hip 5 Screw Hole Cluster Sterile - [id number] Implanted:Qty: 1 on 07/25/2020 by Michael Bruno MD at [facility] Right: Hip [employer] [id number] 01/18/2025 702-04-58F / / [id number] [employer] 6021-3983 Screw Bone Trident Ii L50mm Od6.5mm Low Profile Hexagonal Sterile - [id number] Implanted:Qty: 1 on 07/25/2020 by Michael Bruno MD at [facility] Right: Hip [employer] [id number] 07/15/2024 8525-2602 / / [id number] [employer] [id number] Screw Bone Trident Ii L40mm Od6.5mm Low Profile Hexagonal Sterile - [id number] Implanted:Qty: 1 on 07/25/2020 by Michael Bruno MD at [facility] Right: Hip [employer] [id number] 08/04/2024 1666-4361 / / [id number] [employer] 5077-0540 Screw Bone Trident Ii L40mm Od6.5mm Low Profile Hexagonal Sterile - [id number] Implanted:Qty: 1 on 07/25/2020 by Michael Bruno MD at [facility] Right: Hip [employer] [id number] 08/04/2024 6869-6962 / / [id number] [employer] 3368-7029 Screw Bone Trident Ii L25mm Od6.5mm Low Profile Hexagonal Sterile - [id number] Implanted:Qty: 1 on 07/25/2020 by Michael Bruno MD at [facility] Right: Hip [employer] [id number] 10/12/2024 6338-5161 / / [id number] [employer] [id number] Mobile Bearing Hip Yarsanism 46mm 52mm 28mm 8.9mm Hip - [id number] Implanted:Qty: 1 on 07/25/2020 by Michael Bruno MD at [facility] Right: Hip [employer] DUP [id number] 11/08/2024 [id number] / / [id number] [employer] 7923-1709 Accolade 114mm 37mm Modular Hip 127d 7 Taper Stem Femoral Sterile - [id number] Implanted:Qty: 1 on 07/25/2020 by Michael Bruno MD at [facility] Right: Hip [employer] [id number] 05/18/2025 7340-6654 / / [id number] [employer] 6570-0-228 V40 28mm Hip +4mm Offset Taper Head Femoral Biolox Delta - [id number] Implanted:Qty: 1 on 07/25/2020 by Michael Bruno MD at [facility] Right: Hip [employer] [id number] 05/29/2025 6570-0-228 / / [id number] [employer] 2.3mm 14mm Nontoggle Hexagonal Cortical Screw Bone Titanium Co-N2314 - [id number] Implanted:Qty: 1 on 07/26/2022 by Kadeem Salazar MD at [facility] Left: Clavicle [employer] CO-N2314 / / [employer] [id number] 11mm 12 Hole Clavicle Left Distal Superior Plate Bone 70-0112 - [id number] Implanted:Qty: 1 on 07/26/2022 by Kadeem Salazar MD at [facility] Left: Clavicle [employer] 70-0112 / / Description:[employer]UM[employer] 101X1 4MM 11MM 12 HOLE CLAVICLE LEFT DISTAL SUPERIOR PLATE BONE 70-0112 - [id number] [employer] 3.5mm 12mm Hexalobe Screw Bone Titanium Nonsterile Small Fragment [id number] - [id number] Implanted:Qty: 2 on 07/26/2022 by Kadeem Salazar MD at [facility] Left: Clavicle [employer] [id number] / / [employer] 3.5mm 14mm Hexalobe Screw Bone Titanium Nonsterile Small Fragment 30-0258 - [id number] Implanted:Qty: 5 on 07/26/2022 by Kadeem Salazar MD at [facility] Left: Clavicle [employer] 30-0258 / / [employer] 3.5mm 16mm Lock Hexalobe Screw Bone Titanium Nonsterile Small [id number] - [id number] Implanted:Qty: 1 on 07/26/2022 by Kadeem Salazar MD at [facility] Left: Clavicle [employer] [id number] / / [employer] 3.5mm 14mm Locking Hexalobe Elbow Screw Bone Sterile 30-0235-S - [id number] Implanted:Qty: 2 on 07/26/2022 by Kadeem Salazar MD at [facility] Left: Clavicle [employer] 30-0235-S / / [employer] Comprehensive Taper Adapter 25mm Mini Baseplate Glenoid Reverse [id number] - [id number] Implanted:Qty: 1 on 11/20/2024 at [facility] Right: Shoulder [employer] 03/08/2034 [id number] / / [id number] [employer] Comprehensive 6.5mm 25mm Central Hexagonal 3.5mm Screw Bone 749117 - [id number] Implanted:Qty: 1 on 11/20/2024 at [facility] Right: Shoulder [employer] 09/15/2034 178735 / / [id number] [employer] Comprehensive 4.75mm 30mm Fix Angle Lock Hexagonal 3.5mm Screw 342821 - [id number] Implanted:Qty: 1 on 11/20/2024 at [facility] Right: Shoulder [employer] 10/12/2034 962995 / / [id number] [employer] Comprehensive Versa-Dial 36mm Glenosphere Color Coded Shoulder +3 [id number] - [id number] Implanted:Qty: 1 on 11/20/2024 at [facility] Right: Shoulder [employer] 10/01/2034 876871 / / [id number] [employer] Comprehensive 4.75mm 30mm Fix Angle Lock Hexagonal 3.5mm Screw [id number] - [id number] Implanted:Qty: 1 on 11/20/2024 at [facility] Right: Shoulder [employer] 10/12/2034 281739 / / [id number] [employer] Comprehensive 4.75mm 15mm Fix Angle Lock Hexagonal 3.5mm Screw [id number] - [id number] Implanted:Qty: 1 on 11/20/2024 at [facility] Right: Shoulder [employer] 07/02/2034 [id number] / / [id number] [employer] Stem Humeral Shoulder Reverse Standard Size 14 Identity [id number] - [id number] Implanted:Qty: 1 on 11/20/2024 at [facility] Right: Shoulder [employer] 11/18/2033 [id number] / / [id number] [employer] Humeral Tray Neutral -6mm Ext Sahtnem6 - [id number] Implanted:Qty: 1 on 11/20/2024 at [facility] Right: Shoulder [employer] 08/17/2034 SAHTNEM6 / / [id number] [employer] Bearing Humeral Comprehensive Vivacit-E +3mm Od36mm Shoulder Reverse Retentive [id number] - [id number] Implanted:Qty: 1 on 11/20/2024 at [facility] Right: Shoulder [employer] 05/25/2029 [id number] / / [id number] Explanted Type Area Pin Chaser Device Identifier Shelf Expiration Date Model / Serial / Lot [employer] 3.5mm 12mm Hexalobe Screw Bone Titanium Nonsterile Small Fragment [id number] - [id number] Explanted:Qty: 1 on 07/26/2022 at [facility] Left: Clavicle [employer] [id number] / / Procedures Procedure Name Priority Date/Time Associated Diagnosis Comments XR SHOULDER RIGHT 2 OR MORE VIEWS Schedule Routine, Read Routine (OP Routine) 02/10/2025 10:17 AM CDT S/P reverse total shoulder arthroplasty, right POCT LIPID PANEL Routine 02/03/2025 1:45 PM MEDICATION RECONCILIATION TECHNICIAN Hyperlipidemia, unspecified hyperlipidemia type XR SHOULDER RIGHT 2 OR MORE VIEWS Schedule Routine, Read Routine (OP Routine) 01/04/2025 11:29 AM MEDICATION RECONCILIATION TECHNICIAN S/P reverse total shoulder arthroplasty, right XR SHOULDER RIGHT 2 OR MORE VIEWS Schedule Routine, Read Routine (OP Routine) 12/09/2024 8:09 AM MEDICATION RECONCILIATION TECHNICIAN S/P reverse total shoulder arthroplasty, right EGFR Routine 11/21/2024 4:30 AM MEDICATION RECONCILIATION TECHNICIAN from Last 3 Months or Most Recently [...] * POCT lipid panel (02/03/2025 1:45 PM MEDICATION RECONCILIATION TECHNICIAN) Cholesterol, POC 178 mg/dL HDL, POC 52 mg/dL Triglycerides, POC 197 mg/dL LDL Cholesterol POC 87 mg/dL Chol/HDL Ratio, POC 1.7 Non-HDL Cholesterol, POC 126 mg/dL Cholesterol Total, POC 178 mg/dL Capillary blood 02/03/2025 1 :45 PM MEDICATION RECONCILIATION TECHNICIAN us Carlos Harris MD POINT OF CARE TEST PEGGY OROZCO Final Result * XR Shoulder Right 2+ View (01/04/2025 11:29 AM MEDICATION RECONCILIATION TECHNICIAN) Anatomical Region Laterality Modality Upper Extremities, Shoulder Right Comp uted Radiography 01/04/2025 2:50 PM MEDICATION RECONCILIATION TECHNICIAN Impressions 01/04/2025 8:54 PM MEDICATION RECONCILIATION TECHNICIAN 1. Unchanged right reverse total shoulder arthroplasty in near anatomic alignment. Dictated by: Guy Reece M.D. The radiology attending physician has personally reviewed this study, and had reviewed and/or edited this written report and agrees with it. Electronically signed by: Kenny Wilson D.O. Narrative 01/04/2025 8:54 PM MEDICATION RECONCILIATION TECHNICIAN EXAMINATION: XR SHOULDER RIGHT 2 OR MORE VIEWS HISTORY: Status post right reverse total shoulder arthroplasty. COMPARISON: Comparison is made to prior radiographs dated 12/09/2024. FINDINGS: Unchanged right reverse total shoulder arthroplasty in near-anatomic alignment. No periprosthetic fracture. No osteolysis. Procedure Note Kenny Wilson, DO - 01/04/2025 EXAMINATION: XR SHOULDER RIGHT [...] Electronically signed by: Kenny Wilson D.O. Morris Dsila MD IMG XR PROCEDURES Final Result * XR Shoulder Right 2+ View (12/09/2024 8:09 AM MEDICATION RECONCILIATION TECHNICIAN) Anatomical Region Laterality Modality Upper Extremities, Shoulder Right Digi jimenez Radiography 12/09/2024 8:41 AM MEDICATION RECONCILIATION TECHNICIAN Impressions 12/09/2024 8:41 AM MEDICATION RECONCILIATION TECHNICIAN Reverse right total shoulder arthroplasty in expected position. Electronically signed by: Beckie Mojica M.D. Narrative 12/09/2024 8:41 AM MEDICATION RECONCILIATION TECHNICIAN EXAMINATION: XR SHOULDER RIGHT 2 OR MORE [...] Final Result * eGFR (11/21/2024 4:30 AM MEDICATION RECONCILIATION TECHNICIAN) eGFR >90 >=60 mL/min/1. 73 m2 Comment: [...] last reviewed 2021. Blood 11/21/2024 4:30 AM MEDICATION RECONCILIATION TECHNICIAN 11/21/2024 4:36 AM MEDICATION RECONCILIATION TECHNICIAN Morris Disla MD LAB BLOOD ORDERAB LES Final Result Performing Organization Address City/State/[facility] Co de Phone Number [facility] [address] [facility]. [place] [address] from Last 3 Months or Most Recently Relevant to Health Maintenance Insurance MEDICARE [facility] [place] [employer] [employer] [place] Member Subscriber Plan / Payer (Ef fective 2021-Present) Name:Elijah German Relation to Subscriber:Self Name:Elijah German Payer ID:[id number] Group ID:Not on file Type:COMMERCIAL Address: [facility] [address] [employer] [place] Member Subscriber Plan / Payer (Ef fective 2021-Present) Name:Elijah German Relation to Subscriber:Self Name:Elijah German Payer ID:[id number] Group ID:Not on file Type:[employer] Address: [facility] [address] [employer] Advance Directives For more information, please contact: [phone] * Full Code (Latest Code Status on File) Date Activated Date Inactivated Comments 11/20/2024 4:14 PM 11/21/2024 2:41 PM * Full Code Date Activated Date Inactivated Comments 07/24/2020 9:35 PM 07/26/2020 8:39 PM Care Teams Gis Professor Relationship Specialty Start Date End Date Edward De León MD PCP - General 12/27/17 Michael Bruno MD [address] [address] Consulting Physician Orthopedic Surgery 07/26/20
== END 2025-02-26 13:51 | disposition home or self-care (01) ==
PROVIDERS: PCP Family Medicine; Visit Provider Nurse Practitioner Family
DX: N28.1 Cyst of kidney, acquired (principal)
CPT/HCPCS: 76775

== ENCOUNTER 2025-03-08 08:03 | Outpatient (CLI) | payer MEDICARE, OTHER, SELFPAY ==
--- NOTE | ~2025-03-08 | MR_ITS ---
MRI of the right ankle Clinical history: Pain Technique: Coronal proton-density and proton-density fat-sat images, axial proton-density and proton- density fat-sat images, and sagittal proton-density and proton-density fat-sat images were acquired. Findings: Prior ORIF of the medial malleolus noted with orthopedic screws present. No acute fracture or dislocation seen. 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 There is probable developing osteochondral lesion of the medial corner of the talar dome with extensive reactive amorphous marrow edema. Remaining joint spaces seen at the hindfo ot are relatively well-preserved. No joint effusion. Syndesmotic ligaments appear intact. Anterior and posterior talofibular ligaments, and calcaneofibula r ligament are intact. Deltoid ligament probably intact, though obscured by susceptibility artifact f rom medial malleolus screws. Plantar fascia intact. No soft tissue mass or fluid collection evident. Probable minimal edematous ch lavelle within the sinus Tarsi. Medial flexor tendons, peroneal tendons, anterior extensor tendons, and Achilles tendon are intact, w ith mild tendinosis of the distal tibialis posterior tendon. 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 Prior medial malleolar ORIF. Minimal edema within the sinus Tarsi. Reviewed, dictated and finalized at [facility]. 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 Prior medial malleolar ORIF. Minimal edema within the sinus Tarsi.
== END 2025-03-08 08:04 | disposition home or self-care (01) ==
PROVIDERS: PCP Family Medicine; Visit Provider Nurse Practitioner Family
DX: M19.071 Primary osteoarthritis, right ankle and foot (principal); S82.51XA Displaced fracture of medial malleolus of right tibia, initial encounter for closed fracture
CPT/HCPCS: 73721

== ENCOUNTER 2025-04-22 10:22 | Emergency (ER) | payer MEDICARE, OTHER, SELFPAY ==
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
--- OUTSIDE RECORDS SUMMARY | 2025-04-22 10:29 | XMS_ITS | Clinical Summary ---
[facility] Address [address] [place] [id number] Care Team Providers Care Assistant Winemaker Name Role Phone Edward De León MD Primary Care Provider [phone] Michael Bruno MD Unavailable [phone] Allergies Active Allergy Reactions Criticality Noted Date [...] DAY 90 tablet 3 07/29/20 24 Active ascorbic acid (vitamin C) 1,000 mg [...] 90 tablet 1 02/23/20 25 026 Active lisinopriL (PRINIVIL,ZESTRI L) 5 mg tabletIndication s:Essential hypertension TAKE 1 TABLET (5 MG TOTAL) BY MOUTH EVERY MORNING 90 tablet 1 03/22/20 25 026 Active clopidogreL (PLAVIX) 75 mg tabletIndication s:Amaurosis fugax,Amaurosis fugax of right eye TAKE 1 TABLET BY MOUTH EVERY DAY 90 tablet 3 04/21/20 25 Active clopidogreL (PLAVIX) 75 mg tabletIndication s:Amaurosis fugax,Amaurosis fugax of right eye TAKE 1 TABLET BY MOUTH EVERY DAY 90 tablet 3 07/29/20 24 025 Discontinued Active Problems Problem Noted Date Diagnosed Date Solitary pulmonary nodule 11/27/2024 Osteoarthritis of right shou lder, unspecified osteoarthritis type 11/20/2024 Post-traumatic osteoarthritis of right shoulder 10/12/2024 Left carpal tunnel syndrome 04/25/2023 Closed displaced fracture of left clavicle with delayed healing 07/23/2022 Overview (07/23/2022): Added automatically from request for surgery [id number] History of right hip replacement 08/15/2020 04/23/2023 Essential hypertension 07/24/2020 Hyperlipidemia 07/24/2020 Alcohol use 07/24/2020 Closed subcapital fracture of neck of right femu r 07/24/2020 Dehydration 07/24/2020 Pain in shoulder 10/10/2017 Encounters Date Type Department Care Team Description 02/10/2025 10:15 AM CDT Office Visit [facility] Orthopaedic Surgery [address] [place] [address] Medical Office Building [address] [place] [address] Morris Disla MD S/P reverse total shoulder arthroplasty, right (Primary Dx) 02/10/2025 10:10 AM CDT - 02/10/2025 11:59 PM CDT Hospital Encounter [address] [place] [address] S/P reverse total shoulder arthroplasty, right Discharge Disposition: Discharge to home or self care 02/03/2025 1:30 PM SAND BLASTER Office Visit [facility] [address] [facility] [address] [place] [id number] Carlos Harris MD Hyperlipidemia, unspecified hyperlipidemia type (Primary Dx); Bilateral carotid bruits; Amaurosis fugax; Pure hypercholesterolemia; Statin intolerance from Last 3 Months Immunizations Immunization Administration [...] on file Legal Sex Male 10:38 AM SAND BLASTER Gender Identity Male 10/31/2024 2:37 PM SAND BLASTER Sexual Orientation Not on file Obstetrics History Last Filed Vital Signs Vital Sign Reading Time Taken Comments Blood Pressure 126/72 02/03/2025 1:38 PM SAND BLASTER Pulse 57 02/03/2025 1:38 PM SAND BLASTER Temperature 36.4 C (97.5 F) 11/27/2024 9:31 AM SAND BLASTER Respiratory Rate 16 11/27/2024 9:31 AM SAND BLASTER Oxygen Saturation 97% 02/03/2025 1:38 PM SAND BLASTER Inhaled Oxygen Concentration - - Weight 83.9 kg (185 lb) 02/03/2025 1:38 PM SAND BLASTER Height 172.7 cm (5' 8 ) 11/27/2024 9:31 AM SAND BLASTER Body Mass Index 28.13 11/27/2024 9:31 AM SAND BLASTER Plan of Treatment Health Maintenance Due Date [...] (2 of 2) 12/09/2023 10/14/2023 Influenza Vaccine (Season Ended) 2025 Fall Risk Assessment 11/21/2025 11/21/2024 eGFR 11/21/2025 11/21/2024, 12/0 01/2024, 07/26/2020, Additional history exists Lipid Panel 02/03/2026 02/03/2025, 02/0 08/2024, 11/30/2022, Additional history exists DTaP/Tdap/Td Vaccine (3 - Td or Tdap) 10/14/2033 10/14/2023, 02/15/2022 Medical Devices Implanted Type Area Order Analyst Device Identifier Shelf Expiration Date Model / Serial / Lot Shoulder Replacement Left: Shoulder Screws Right: Ankle [employer] [id number] 46mm Modular Dual Mobility Primary Hip F Liner Acetabular Cocr - [id number] Implanted:Qty: 1 on 07/25/2020 by Michael Bruno MD at [facility] Right: Hip [employer] 06/22/2025 [id number] / / [id number] [employer] 58f Shell Acetabular Trident Ii Tritanium F Od58mm Hip 5 Screw Hole Cluster Sterile - [id number] Implanted:Qty: 1 on 07/25/2020 by Michael Bruno MD at [facility] Right: Hip [employer] [id number] 01/18/2025 [id number] / / [id number] [employer] 2527-4801 Screw Bone Trident Ii L50mm Od6.5mm Low Profile Hexagonal Sterile - [id number] Implanted:Qty: 1 on 07/25/2020 by Michael Bruno MD at [facility] Right: Hip [employer] [id number] 07/15/2024 6185-1295 / / [id number] [employer] [id number] Screw Bone Trident Ii L40mm Od6.5mm Low Profile Hexagonal Sterile - [id number] Implanted:Qty: 1 on 07/25/2020 by Michael Bruno MD at [facility] Right: Hip [employer] [id number] 08/04/2024 3197-6117 / / [id number] [employer] [id number] Screw Bone Trident Ii L40mm Od6.5mm Low Profile Hexagonal Sterile - [id number] Implanted:Qty: 1 on 07/25/2020 by Michael Bruno MD at [facility] Right: Hip [employer] [id number] 08/04/2024 4379-6800 / / [id number] [employer] [id number] Screw Bone Trident Ii L25mm Od6.5mm Low Profile Hexagonal Sterile - [id number] Implanted:Qty: 1 on 07/25/2020 by Michael Bruno MD at [facility] Right: Hip [employer] [id number] 10/12/2024 2305-3265 / / [id number] [employer] [id number] Adm Mobile Bearing Hip Denominational 46mm 52mm 28mm 8.9mm Hip - [id number] Implanted:Qty: 1 on 07/25/2020 by Michael Bruno MD at [facility] Right: Hip [employer] DUP [id number] 11/08/2024 [id number] / / [id number] [employer] 0346-6845 Accolade 114mm 37mm Modular Hip 127d 7 Taper Stem Femoral Sterile - [id number] Implanted:Qty: 1 on 07/25/2020 by Michael Bruno MD at [facility] Right: Hip [employer] [id number] 05/18/2025 2103-8265 / / [id number] [employer] 6570-0-228 V40 28mm Hip +4mm Offset Taper Head Femoral Biolox Delta - [id number] Implanted:Qty: 1 on 07/25/2020 by Michael Bruno MD at [facility] Right: Hip [employer] [id number] 05/29/2025 6570-0-228 / / [id number] [employer] 2.3mm 14mm Nontoggle Hexagonal Cortical Screw Bone [employer] Co-N2314 - [id number] Implanted:Qty: 1 on 07/26/2022 by Kadeem Salazar MD at [facility] Left: Clavicle [employer] CO-N2314 / / [employer] [id number] 11mm 12 Hole Clavicle Left Distal Superior Plate Bone 70-0112 - [id number] Implanted:Qty: 1 on 07/26/2022 by Kadeem Salazar MD at [facility] Left: Clavicle [employer] 70-0112 / / Description:[employer] 101X1 4MM 11MM 12 HOLE CLAVICLE LEFT DISTAL SUPERIOR PLATE BONE 70-0112 - [id number] [employer] 3.5mm 12mm Hexalobe Screw Bone Titanium Nonsterile Small Fragment [id number] - [id number] Implanted:Qty: 2 on 07/26/2022 by Kadeem Salazar MD at [facility] Left: Clavicle [employer] [id number] / / [employer] 3.5mm 14mm Hexalobe Screw Bone Titanium Nonsterile Small Fragment 30-0258 - [id number] Implanted:Qty: 5 on 07/26/2022 by Kadeem Salazar MD at [facility] [place] Left: Clavicle [employer] 30-0258 / / [employer] 3.5mm 16mm Lock Hexalobe Screw Bone Titanium Nonsterile Small 045120 - [id number] Implanted:Qty: 1 on 07/26/2022 by Kadeem Salazar MD at [facility] Left: Clavicle [employer] [id number] / / [employer] 3.5mm 14mm Locking Hexalobe Elbow Screw Bone Sterile 30-0235-S - [id number] Implanted:Qty: 2 on 07/26/2022 by Kadeem Salazar MD at [facility] Left: Clavicle [employer] 30-0235-S / / [employer] Comprehensive Taper Adapter 25mm Mini Baseplate Glenoid Reverse [id number] - [id number] Implanted:Qty: 1 on 11/20/2024 at [facility] Right: Shoulder [employer] 03/08/2034 [id number] / / [id number] [employer] Comprehensive 6.5mm 25mm Central Hexagonal 3.5mm Screw Bone 676967 - [id number] Implanted:Qty: 1 on 11/20/2024 at [facility] Right: Shoulder [employer] 09/15/2034 [id number] / / [id number] [employer] Comprehensive 4.75mm 30mm Fix Angle Lock Hexagonal 3.5mm Screw 331279 - [id number] Implanted:Qty: 1 on 11/20/2024 at [facility] Right: Shoulder [employer] 10/12/2034 [id number] / / [id number] [employer] Comprehensive Versa-Dial 36mm Glenosphere Color Coded Shoulder +3 670598 - [id number] Implanted:Qty: 1 on 11/20/2024 at [facility] Right: Shoulder [employer] 10/01/2034 [id number] / / [id number] [employer] Comprehensive 4.75mm 30mm Fix Angle Lock Hexagonal 3.5mm Screw 716894 - [id number] Implanted:Qty: 1 on 11/20/2024 at [facility] Right: Shoulder [employer] 10/12/2034 [id number] / / [id number] [employer] Comprehensive 4.75mm 15mm Fix Angle Lock Hexagonal 3.5mm Screw 561144 - [id number] Implanted:Qty: 1 on 11/20/2024 at [facility] Right: Shoulder [employer] 07/02/2034 [id number] / / [id number] [employer] Stem Humeral Shoulder Reverse Standard Size 14 Identity [id number] - [id number] Implanted:Qty: 1 on 11/20/2024 at [facility] Right: Shoulder [employer] 11/18/2033 [id number] / / [id number] [employer] Humeral Tray Neutral -6mm Ext Sahtnem6 - [id number] Implanted:Qty: 1 on 11/20/2024 at [facility] Right: Shoulder [employer] 08/17/2034 [id number] / / [id number] [employer] Bearing Humeral Comprehensive Vivacit-E +3mm Od36mm Shoulder Reverse Retentive [id number] - [id number] Implanted:Qty: 1 on 11/20/2024 at [facility] Right: Shoulder [employer] 05/25/2029 [id number] / / [id number] Explanted Type Area Order Analyst Device Identifier Shelf Expiration Date Model / Serial / Lot [employer] 3.5mm 12mm Hexalobe Screw Bone Titanium Nonsterile Small Fragment [id number] - [id number] Explanted:Qty: 1 on 07/26/2022 at [facility] Left: Clavicle [employer] [id number] / / Procedures Procedure Name Priority Date/Time Associated Diagnosis Comments XR SHOULDER RIGHT 2 OR MORE VIEWS Schedule Routine, Read Routine (OP Routine) 02/10/2025 10:17 AM CDT S/P reverse total shoulder arthroplasty, right POCT LIPID PANEL Routine 02/03/2025 1:45 PM SAND BLASTER Hyperlipidemia, unspecified hyperlipidemia type EGFR Routine 11/21/2024 4:30 AM SAND BLASTER from Last 3 Months or Most Recently [...] * POCT lipid panel (02/03/2025 1:45 PM SAND BLASTER) Cholesterol, POC 178 mg/dL HDL, POC 52 mg/dL Triglycerides, POC 197 mg/dL LDL Cholesterol POC 87 mg/dL Chol/HDL Ratio, POC 1.7 Non-HDL Cholesterol, POC 126 mg/dL Cholesterol Total, POC 178 mg/dL Capillary blood 02/03/2025 1 :45 PM SAND BLASTER Carlos Harris MD POINT OF CARE TEST ORDE RABLES Final Result * eGFR (11/21/2024 4:30 AM SAND BLASTER) eGFR >90 >=60 mL/min/1. 73 m2 Comment: [...] last reviewed 2021. Blood 11/21/2024 4:30 AM SAND BLASTER 11/21/2024 4:36 AM SAND BLASTER Morris Disla MD LAB BLOOD ORDERAB LES Final Result [facility] [address] [facility] [employer] [place] [address] from Last 3 Months or Most Recently Relevant to Health Maintenance Insurance [employer] [place] [employer] Member Subscriber Plan / Payer (Ef fective 2021-Present) Name:Elijah German Relation to Subscriber:Self Name:Elijah German Payer ID:[id number] Group ID:Not on file Type:[employer] Address: [facility] [address] [place], [place] MEDICARE [employer] Member Subscriber Plan / Payer (Ef fective 2021-Present) Name:Elijah German Relation to Subscriber:Self Name:Elijah German Payer ID:[id number] Group ID:Not on file Type:[employer] Address: [facility] [address] [place], [place] Advance Directives For more information, please contact: [phone] * Full Code (Latest Code Status on File) Date Activated Date Inactivated Comments 11/20/2024 4:14 PM 11/21/2024 2:41 PM * Full Code Date Activated Date Inactivated Comments 07/24/2020 9:35 PM 07/26/2020 8:39 PM Care Teams Assistant Winemaker Relationship Specialty Start Date End Date Edward De León MD PCP - General 12/27/17 Michael Bruno MD [address] [facility] JINA MARTIN [address] [address] Consulting Physician Orthopedic Surgery 07/26/20
--- OUTSIDE RECORDS SUMMARY | 2025-04-22 10:29 | XMS_ITS | Referral Summary ---
Author Organization [facility] Building D Address [address] [place] [address] Care Team Providers Care Java Designer Name Role Phone Edward De León MD Primary Care Provider [phone] Michael Bruno MD Unavailable [phone] Encounters Date Type Department Care Team Description 02/10/2025 10:10 AM CDT - 02/10/2025 11:59 PM CDT Hospital Encounter [address] 1 [facility] [address] [place] [id number] S/P reverse total shoulder arthroplasty, right Discharge Disposition: Discharge to home or self care 02/10/2025 10:15 AM CDT Office Visit [facility] Orthopaedic Surgery [address] [place] [address] Medical Office Building [address] [place] [id number] Morris Disla MD S/P reverse total shoulder arthroplasty, right (Primary Dx) 02/03/2025 1:30 PM CHIP BIN CONVEYOR TENDER Office Visit [facility] [address] [facility] [address] [place] [address] Carlos Harris MD Hyperlipidemia, unspecified hyperlipidemia type (Primary Dx); Bilateral carotid bruits; Amaurosis fugax; Pure hypercholesterolemia; Statin intolerance from Last 3 Months Allergies Active Allergy [...] (07/23/2022): Added automatically from request for surgery [id number] History of right hip replacement 08/15/2020 04/23/2023 [...] on file Legal Sex Male 10:38 AM CHIP BIN CONVEYOR TENDER Gender Identity Male 10/31/2024 2:37 PM CHIP BIN CONVEYOR TENDER Sexual Orientation Not on file Last Filed Vital Signs Vital Sign Reading Time Taken Comments Blood Pressure 126/72 02/03/2025 1:38 PM CHIP BIN CONVEYOR TENDER Pulse 57 02/03/2025 1:38 PM CHIP BIN CONVEYOR TENDER Temperature 36.4 C (97.5 F) 11/27/2024 9:31 AM CHIP BIN CONVEYOR TENDER Respiratory Rate 16 11/27/2024 9:31 AM CHIP BIN CONVEYOR TENDER Oxygen Saturation 97% 02/03/2025 1:38 PM CHIP BIN CONVEYOR TENDER Inhaled Oxygen Concentration - - Weight 83.9 kg (185 lb) 02/03/2025 1:38 PM CHIP BIN CONVEYOR TENDER Height 172.7 cm (5' 8 ) 11/27/2024 9:31 AM CHIP BIN CONVEYOR TENDER Body Mass Index 28.13 11/27/2024 9:31 AM CHIP BIN CONVEYOR TENDER Plan of Treatment Not on file Medical Devices Implanted Type Area Fire Chief Device Identifier Shelf Expiration Date Model / Serial / Lot Shoulder Replacement Left: Shoulder Screws Right: Ankle [employer] [id number] 46mm Modular Dual Mobility Primary Hip F Liner Acetabular Cocr - [id number] Implanted:Qty: 1 on 07/25/2020 by Michael Bruno MD at [facility] Right: Hip [employer] 06/22/2025 [id number] / / [id number] [employer] 7004-58f Shell Acetabular Trident Ii Tritanium F Od58mm Hip 5 Screw Hole Cluster Sterile - [id number] Implanted:Qty: 1 on 07/25/2020 by Michael Bruno MD at [facility] Right: Hip [employer] [id number] 01/18/2025 702-04-58F / / [id number] [employer] 3627-1394 Screw Bone Trident Ii L50mm Od6.5mm Low Profile Hexagonal Sterile - [id number] Implanted:Qty: 1 on 07/25/2020 by Michael Bruno MD at [facility] Right: Hip [employer] [id number] 07/15/2024 2000-7189 / / 4AC [employer] 3710-1053 Screw Bone Trident Ii L40mm Od6.5mm Low Profile Hexagonal Sterile - [id number] Implanted:Qty: 1 on 07/25/2020 by Michael Bruno MD at [facility] Right: Hip [employer] [id number] 08/04/2024 4335-7887 / / [id number] [employer] 8446-0629 Screw Bone Trident Ii L40mm Od6.5mm Low Profile Hexagonal Sterile - [id number] Implanted:Qty: 1 on 07/25/2020 by Michael Bruno MD at [facility] Right: Hip [employer] [id number] 08/04/2024 0831-0520 / / [id number] [employer] 3314-8375 Screw Bone Trident Ii L25mm Od6.5mm Low Profile Hexagonal Sterile - [id number] Implanted:Qty: 1 on 07/25/2020 by Michael Bruno MD at [facility] Right: Hip [employer] [id number] 10/12/2024 1754-6977 / / [id number] [employer] [id number] Adm Mobile Bearing Hip Mosque 46mm 52mm 28mm 8.9mm Hip - [id number] Implanted:Qty: 1 on 07/25/2020 by Michael Bruno MD at [facility] Right: Hip [employer] DUP [id number] 11/08/2024 [id number] / / [id number] [employer] 5002-3369 Accolade 114mm 37mm Modular Hip 127d 7 Taper Stem Femoral Sterile - [id number] Implanted:Qty: 1 on 07/25/2020 by Michael Bruno MD at [facility] Right: Hip [employer] [id number] 05/18/2025 1493-1130 / / [id number] [employer] 6570-0-228 V40 28mm Hip +4mm Offset Taper Head Femoral Biolox Delta - [id number] Implanted:Qty: 1 on 07/25/2020 by Michael Bruno MD at [facility] Right: Hip [employer] [id number] 05/29/2025 6570-0-228 / / [id number] [employer] 2.3mm 14mm Nontoggle Hexagonal Cortical Screw Bone Titanium Co-N2314 - [id number] Implanted:Qty: 1 on 07/26/2022 by Kadeem Salazar MD at [facility] Left: Clavicle [employer] CO-N2314 / / [employer] [id number] 11mm 12 Hole Clavicle Left Distal Superior Plate Bone 70-0112 - [id number] Implanted:Qty: 1 on 07/26/2022 by Kadeem Salazar MD at [facility] Left: Clavicle [employer] 70-0112 / / Description:ACUMED INC 101X1 4MM 11MM 12 HOLE CLAVICLE LEFT DISTAL SUPERIOR PLATE BONE 70-0112 - [id number] [employer] 3.5mm 12mm Hexalobe Screw Bone Titanium Nonsterile Small Fragment 081006 - [id number] Implanted:Qty: 2 on 07/26/2022 by Kadeem Salazar MD at [facility] Left: Clavicle [employer] [id number] / / [employer] Inc 3.5mm 14mm Hexalobe Screw Bone Titanium Nonsterile Small Fragment 30-0258 - [id number] Implanted:Qty: 5 on 07/26/2022 by Kadeem Salazar MD at [facility] Left: Clavicle [employer] 30-0258 / / [employer] Inc 3.5mm 16mm Lock Hexalobe Screw Bone Titanium Nonsterile Small [id number] - [id number] Implanted:Qty: 1 on 07/26/2022 by Kadeem Salazar MD at [facility] Left: Clavicle [employer] [id number] / / [employer] 3.5mm 14mm Locking Hexalobe Elbow Screw Bone Sterile 30-0235-S - [id number] Implanted:Qty: 2 on 07/26/2022 by Kadeem Salazar MD at [facility] Left: Clavicle [employer] 30-0235-S / / [employer] Comprehensive Taper Adapter 25mm Mini Baseplate Glenoid Reverse [id number] - [id number] Implanted:Qty: 1 on 11/20/[address] [facility] Right: Shoulder [employer] 03/08/2034 [id number] / / [id number] [employer] Comprehensive 6.5mm 25mm Central Hexagonal 3.5mm Screw Bone [id number] - [id number] Implanted:Qty: 1 on 11/20/[address] [facility] Right: Shoulder [employer] 09/15/2034 759353 / / [id number] [employer] Comprehensive 4.75mm 30mm Fix Angle Lock Hexagonal 3.5mm Screw 814369 - [id number] Implanted:Qty: 1 on 11/20/[address] [facility] Right: Shoulder [employer] 10/12/2034 [id number] / / [id number] [employer] Comprehensive Versa-Dial 36mm Glenosphere Color Coded Shoulder +3 [id number] - [id number] Implanted:Qty: 1 on 11/20/[address] [facility] Right: Shoulder [employer] 10/01/2034 [id number] / / [id number] [employer] Comprehensive 4.75mm 30mm Fix Angle Lock Hexagonal 3.5mm Screw 541060 - [id number] Implanted:Qty: 1 on 11/20/[address] [facility] Right: Shoulder [employer] 10/12/2034 323530 / / [id number] [employer] Comprehensive 4.75mm 15mm Fix Angle Lock Hexagonal 3.5mm Screw 253306 - [id number] Implanted:Qty: 1 on 11/20/[address] [facility] Right: Shoulder [employer] 07/02/2034 [id number] / / [id number] [employer] Stem Humeral Shoulder Reverse Standard Size 14 Identity [id number] - [id number] Implanted:Qty: 1 on 11/20/[address] [facility] Right: Shoulder [employer] 11/18/2033 [id number] / / [id number] [employer] Humeral Tray Neutral -6mm Ext Sahtnem6 - [id number] Implanted:Qty: 1 on 11/20/[address] [facility] Right: Shoulder [employer] 08/17/2034 SAHTNEM6 / / [id number] [employer] Bearing Humeral Comprehensive Vivacit-E +3mm Od36mm Shoulder Reverse Retentive [id number] - [id number] Implanted:Qty: 1 on 11/20/[address] [facility] Right: Shoulder [employer] 05/25/2029 [id number] / / [id number] Explanted Type Area Fire Chief Device Identifier Shelf Expiration Date Model / Serial / Lot Sarah Gould 3.5mm 12mm Hexalobe Screw Bone Titanium Nonsterile Small Fragment [id number] - [id number] Explanted:Qty: 1 on 07/26/2022 at [facility] Left: Clavicle Sarah Gould [id number] / / Procedures Procedure Name Priority Date/Time Associated Diagnosis Comments XR SHOULDER RIGHT 2 OR MORE VIEWS Schedule Routine, Read Routine (OP Routine) 02/10/2025 10:17 AM CDT S/P reverse total shoulder arthroplasty, right POCT LIPID PANEL Routine 02/03/2025 1:45 PM CHIP BIN CONVEYOR TENDER Hyperlipidemia, unspecified hyperlipidemia type EGFR Routine 11/21/2024 4:30 AM CHIP BIN CONVEYOR TENDER from Last 3 Months or Most Recently [...] * POCT lipid panel (02/03/2025 1:45 PM CHIP BIN CONVEYOR TENDER) Cholesterol, POC 178 mg/dL HDL, POC 52 mg/dL Triglycerides, POC 197 mg/dL LDL Cholesterol POC 87 mg/dL Chol/HDL Ratio, POC 1.7 Non-HDL Cholesterol, POC 126 mg/dL Cholesterol Total, POC 178 mg/dL Capillary blood 02/03/2025 1 :45 PM CHIP BIN CONVEYOR TENDER Carlos Harris MD POINT OF CARE TEST PEGGY OROZCO Final Result * eGFR (11/21/2024 4:30 AM CHIP BIN CONVEYOR TENDER) eGFR >90 >=60 mL/min/1. 73 m2 Comment: [...] last reviewed 2021. Blood 11/21/2024 4:30 AM CHIP BIN CONVEYOR TENDER 11/21/2024 4:36 AM CHIP BIN CONVEYOR TENDER us Morris Disla MD LAB BLOOD ORDERAB LES Final Result Performing Organization Address City/State/ZIP Co mt Phone Number [facility] [address] Department [place] [address] from Last 3 Months or Most Recently Relevant to Health Maintenance Insurance MEDICARE [facility] [place] [employer] [place] [employer] [place] Member Subscriber Plan / Payer (Ef fective 2021-) Name:Elijah German Relation to Subscriber:Self Name:Elijah German Payer ID:[id number] Group ID:Not on file Type:[employer] Address: [address] ADARSH Flores Advance Directives For more information, please contact: [phone] * Full Code (Latest Code Status on File) Date Activated Date Inactivated Comments 11/20/2024 4:14 PM 11/21/2024 2:41 PM * Full Code Date Activated Date Inactivated Comments 07/24/2020 9:35 PM 07/26/2020 8:39 PM Care Teams Java Designer Relationship Specialty Start Date End Date Edward De León MD PCP - General 12/27/17 Michael Bruno MD [address] [address] Consulting Physician Orthopedic Surgery 07/26/20
--- OUTSIDE RECORDS SUMMARY | 2025-04-22 10:29 | XMS_ITS | Continuity of Care Document ---
Author Organization [facility] Address [address] [facility] [address] [place] [address] Phone Care Team Providers Care Manager Operational Name Role Phone Michael Bruno MD, MD Unavailable Unavaila ble Allergies, Adverse Reactions, Alerts Substance Reaction Status [...] 10 mg tablet take 1 tablet by or al route every day 10 MG - Active Procedures Procedure Date X-ray Exam, Femur 2 Views Global/Postop followup visit Disability Form X-ray Exam Hip Unilat With Pelvis When P erformed Min 4 Views Global/Postop followup visit Initial hospital care, moderate 020 Total Hip Replacement Global/Postop followup visit Global/Postop followup visit Wrist Brace Tital Parks Arm Sling, Parks w/ strap 3 Carpal tunnel release Office/outpatient [...] Date Provider Providers Copied on Encounter [facility], [address], [id number], [phone] [facility] No Information 5 Damion ho. [address], [id number] , [place]. tel: [phone] [facility], [address], [id number], [place] tel:[phone] [facility] No Information 1 Abdulaziz Moore. [address], [id number] , [place]. tel: [phone] [facility], [address], [id number], [place] tel:[phone] [facility] Right Femur (chief complaint) Displaced fracture of base of neck of right femur, sequelaPresence of right artificial hip joint 0 Cintron Oscar. [address] [place] [address], [id number] , [place]. tel: [phone] Referring Provider: Senthil Leon, [address], [address]. tel:[phone] [facility], [address] [place] [address], [place], [place], [id number], [place] tel:[phone] [facility] No Information 0 Damion Bernardo er. [address] [facility], [place] [address], [place], [place], [id number] , [place]. tel:[phone] [facility], [address] [place] [address], [place], [place], [address], [place] [phone] [facility] Right Femur (chief complaint) Displaced fracture of base of neck of right femur, sequelaPresence of right artificial hip joint 0 Abdulaziz Moore. [address] [place] [address], [place], [place], [id number] , [place]. tel: [phone] Referring Provider: Senthil Leon, [address] [place] [address], [place], [address]. [phone] [facility], [address] [place] [address], [place], [place], [id number], [place] tel:[phone] [facility] Intracapsular fracture of right femur, initial encounter for closed fracture 0 Damoin Bernardo er. [address] [place] [address], [place], [place], [id number] , [place]. tel: [phone] Initial hospital care, moderate [facility], [address] [place] [address], [place], [place], [id number], [place] [phone] [facility] No Information 0 Damion Bernardo er. [address] [place] [address], [place], [place], [id number] , [place]. tel: [phone] Referring Provider: Senthil Leon, [address] [place] [address], [place], [address]. tel:[phone] [facility], [address] [facility] [address], [place], [place], [address], [place] tel:[phone] [facility] Carpal Tunnel Syndrome Mar-2 2-201 3 Strecker Randy. [address] [facility], [address], [place], [place], [address] , [place]. tel: [phone] Referring Provider: Senthil Loen, [address] [facility] [address], [place], [address]. tel:[phone] [facility], [address] [facility] [address], [place], [place], [address], [place] tel:[phone] [facility] Carpal Tunnel Syndrome Mar-0 1-201 3 Streariella Randy. [address] [facility], [place] [address], [place], [place], [id number] , [place]. tel: [phone] Referring Provider: Senthil Leon, [facility] [address], [place], [address]. tel:[phone] [facility], [address] [facility] [address], [place], [place], [id number], [place] tel:[phone] [facility] No Information Jan-2 0-201 3 Gemmaariella Randy. [address] [place] [address], [facility] [address], [place], [place], [address] , [place]. tel:[phone] Referring Provider: Senthil Leon, [address] [facility] [address], [place], [address]. tel:[phone] Office/outpa tient visit,est, mod [facility], [address] [facility] [address], [place], [place], [id number], [place] tel:[phone] [facility] Carpal Tunnel Syndrome Jan- 8 3 Mone Randy. [address] [place] [address], [address], [place], [place], [address] , [place]. tel: [phone] Referring Provider: Michael Tong, [address] [facility] [address], [place], [address]. tel:[phone] [facility], [address] [address], [place], [place], [address], [place] tel:[phone] [facility] Carpal Tunnel Syndrome Fe-0 3 Sanchez Bernardo vic. [address] [place] [address] [address], [place], [place], [id number] , [place]. tel: [phone] Referring Provider: Cathy Tong, [address] [place] [address], [place], [address]. tel:[phone] Office/outpa tient visit,[facility], [facility], [address] [place] [address], [place], [place], [id number], [place] tel:[phone] [facility] BRACHIAL NEURITIS NOS 3 Ayaan Morgan. [address] [address], [place], [place], [id number] , [place]. tel: [phone] Referring Provider: Senthil Leon, [address] [place] [address], [place], [address]. tel:[phone] Office/outpa tient visit,[facility], [facility], [address] [address], [place], [place], [address], [place] tel:[phone] [facility] DISC DIS NEC/NOS-CERV May-0 2 Ayaan Morgan. [address] [facility], [facility] [address], [place], [place], [address] , [place]. tel: [phone] Referring Provider: Senthil Leon, [address] [address], [place], [address]. tel:[phone] Office/outpa tient visit,[facility], [facility], [address] [address], [place], [place], [address], [place] tel:[phone] [facility] DISC DIS NEC/NOS-CERVPAI N IN LIMB Apr- 0-201 2 Abeln Cathy. [address] [facility], [address], [place], [place], [address] , [place]. tel: [phone] Referring Provider: Senthil Leon, [address] [facility] [address], [place], [address]. tel:[phone] [facility], [address] [facility] [address], [place], [place], [address], [place] [phone] [facility] CERVICAL DISC DISPLACMNT Apr-0 2-201 2 [facility]. [address] [facility], [address], [place], [place], [address] , [place]. tel:[phone] Referring Provider: Senthil Leon, [address] [facility] [address], [place], [address]. tel:[phone] Office/outpa tient visit,est, [facility], [address] [address], [place], [place], [id number], [place] tel:[phone] [facility] CERVICAL SPONDYLOSISBRAC HIAL NEURITIS NOSCERVICALGIA Mar-0 2-201 2 Abeln Cathy. [address] [facility], [facility] [address], [place], [place], [address] , [place]. tel:[phone] Office/outpa tient visit,est, [facility], [address] [address], [place], [place], [address], [place] tel:[phone] [facility] CARPAL TUNNEL SYNDROME May- 5 1 Mone Padilla. [address] [facility], [facility] [address], [place], [place], [address] , [place]. tel:[phone] Referring Provider: Nikos Rogers, [address] [facility], [place], [address]. tel:[phone] Office consultation , [facility], [address] [address], [place], [place], [address], [place] tel:[phone] [facility] MONONEURITIS ARM NOSCERVICALGIA 0201 1 Mone Padilla. [address] [facility], [address], [place], [place], [address] , [place]. tel: [phone] Referring Provider: Nikos Rogers, [address] [facility], [place], [address]. [phone] Family History Family Member Type Diagnosis Age At Onset Father Problem (finding) Cancer, unknown Father Problem (finding) Heart Disease Payers Payer name Insurance type Covered green party ID Authoriza tion(s) Leon Blue [employer] Blue [place] [id number] Social History Type Description Quantity Date Captured [...] Date Complaint History Of Prese nt Illness Femur Elijah is a pleas ant 64 [...]
--- OUTSIDE RECORDS SUMMARY | 2025-04-22 10:30 | XMS_ITS | Continuity of Care Document ---
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 [address], [id number] , [place]. tel: [phone] [facility], [address], [id number], [place] tel:[phone] [facility] No Information 1 Abdulaziz Moore. [address], [id number] , [place]. tel: [phone] [facility], [address], [id number], [place] tel:[phone] [facility] Right Femur (chief complaint) Displaced fracture of base of neck of right femur, sequelaPresence of right artificial hip joint 0 Cintron Oscar. [address] [place] [address], [id number] , [place]. tel: [phone] Referring Provider: Senthil Leon, [address], [address]. tel:[phone] [facility], [address] [place] [address], [place], [place], [id number], [place] tel:[phone] [facility] No Information 0 Damion Bernardo er. [address] [facility], [place] [address], [place], [place], [id number] , [place]. tel:[phone] [facility], [address] [place] [address], [place], [place], [id number], [place] [phone] [facility] Right Femur (chief complaint) Displaced fracture of base of neck of right femur, sequelaPresence of right artificial hip joint 0 Abdulaziz Moore. [address] [place] [address], [place], [place], [id number] , [place]. tel: [phone] Referring Provider: Senthil Leon, [address] [place] [address], [place], [address]. [phone] [facility], [address] [place] [address], [place], [place], [id number], [place] tel:[phone] [facility] Intracapsular fracture of right femur, initial encounter for closed fracture 0 Damion Bernardo er. [address] [place] [address], [place], [place], [id number] , [place]. tel: [phone] Initial hospital care, moderate [facility], [address] [place] [address], [place], [place], [id number], [place] [phone] [facility] No Information 0 Damion Bernardo er. [address] [place] [address], [place], [place], [id number] , [place]. tel: [phone] Referring Provider: Senthil Leon, [address] [place] [address], [place], [address]. tel:[phone] [facility], [address] [facility] [address], [place], [place], [id number], [place] tel:[phone] [facility] Carpal Tunnel Syndrome Mar-2 2-201 3 Strecker Randy. [address] [facility], [address], [place], [place], [id number] , [place]. tel: [phone] Referring Provider: Senthil Leon, [address] [facility] [address], [place], [address]. tel:[phone] [facility], [address] [facility] [address], [place], [place], [id number], [place] tel:[phone] [facility] Carpal Tunnel Syndrome Mar-0 1-201 3 Streariella Randy. [address] [facility], [place] [address], [place], [place], [address] , [place]. tel: [phone] Referring Provider: Senthil Leon, [facility] [address], [place], [address]. tel:[phone] [facility], [address] [facility] [address], [place], [place], [id number], [place] tel:[phone] [facility] No Information Jan-2 0-201 3 Gemmaariella Randy. [address] [place] [address], [facility] [address], [place], [place], [id number] , [place]. tel:[phone] Referring Provider: Senthil Leon, [address] [facility] [address], [place], [address]. tel:[phone] Office/outpa tient visit,est, mod [facility], [address] [facility] [address], [place], [place], [id number], [place] tel:[phone] [facility] Carpal Tunnel Syndrome Jan- 8 3 Mone Randy. [address] [place] [address], [address], [place], [place], [id number] , [place]. tel: [phone] Referring Provider: Michael Tong, [address] [facility] [address], [place], [address]. tel:[phone] [facility], [address] [address], [place], [place], [address], [place] tel:[phone] [facility] Carpal Tunnel Syndrome Fe-0 3 Sanchez Bernardo vic. [address] [address], [place], [place], [address] , [place]. tel: [phone] Referring Provider: Cathy Tong, [address] [address], [place], [address]. tel:[phone] Office/outpa tient visit,rust, [facility], [address] [address], [place], [place], [id number], [place] tel:[phone] [facility] BRACHIAL NEURITIS NOS 3 Ayaan Morgan. [address] [address], [place], [place], [id number] , [place]. tel: [phone] Referring Provider: Senthil Leon, [address] [address], [place], [address]. tel:[phone] Office/outpa tient visit,rust, [facility], [address] [address], [place], [place], [id number], [place] tel:[phone] [facility] DISC DIS NEC/NOS-CERV May-0 2 Ayaan Morgan. [address] [facility], [facility] [address], [place], [place], [id number] , [place]. tel: [phone] Referring Provider: Senthil Leon, [address] [address], [place], [address]. tel:[phone] Office/outpa tient visit,rust, [facility], [address] [address], [place], [place], [id number], [place] tel:[phone] [facility] DISC DIS NEC/NOS-CERVPAI N IN LIMB Apr- 0-201 2 Abeln Cathy. [address] [facility], [address], [place], [place], [id number] , [place]. tel: [phone] Referring Provider: Senthil Leon, [address] [facility] [address], [place], [address]. tel:[phone] [facility], [address] [facility] [address], [place], [place], [id number], [place] [phone] [facility] CERVICAL DISC DISPLACMNT Apr-0 2-201 2 [facility]. [address] [facility], [address], [place], [place], [address] , [place]. tel:[phone] Referring Provider: Senthil Leon, [address] [facility] [address], [place], [address]. tel:[phone] Office/outpa tient visit,est, [facility], [address] [address], [place], [place], [id number], [place] tel:[phone] [facility] CERVICAL SPONDYLOSISBRAC HIAL NEURITIS NOSCERVICALGIA Mar-0 2-201 2 Abeln Cathy. [address] [facility], [facility] 100, [place], [place], [id number] , [place]. tel:[phone] Office/outpa tient visit,est, [facility], [address] [address], [place], [place], [address], [place] tel:[phone] [facility] CARPAL TUNNEL SYNDROME May- 5 1 Mone Padilla. [address] [facility], [facility] [address], [place], [place], [id number] , [place]. tel:[phone] Referring Provider: Nikos Rogers, [address] [facility], [place], [address]. tel:[phone] Office consultation , [facility], [address] [address], [place], [place], [address], [place] tel:[phone] [facility] MONONEURITIS ARM NOSCERVICALGIA 0201 1 Mone Padilla. [address] [facility], [address], [place], [place], [address] , [place]. tel: [phone] Referring Provider: Nikos Rogers, [address] [facility], [place], [address]. [phone] Family History Family Member Type Diagnosis Age At Onset Father Problem (finding) Cancer, unknown Father Problem (finding) Heart Disease Payers Payer name Insurance type Covered green party ID Authoriza tion(s) Leon Blue Cross Blue [place] d [place] [id number] Social History Type Description Quantity Date Captured [...]
[2025-04-22 10:38] VITALS: BP 125/85; PULSE 86; RESP 18; TEMP 36.9; O2SAT 96
== END 2025-04-22 11:17 | disposition short-term general hospital (02) ==
PROVIDERS: Emergency Provider Nurse Practitioner Family
DX: S32.591A Other specified fracture of right pubis, initial encounter for closed fracture (principal); V19.9XXA Pedal cyclist (driver) (passenger) injured in unspecified traffic accident, initial encounter; Y93.55 Activity, bike riding; E11.9 Type 2 diabetes mellitus without complications; I10 Essential (primary) hypertension; M19.011 Primary osteoarthritis, right shoulder; Z96.652 Presence of left artificial knee joint; Z96.612 Presence of left artificial shoulder joint
CPT/HCPCS: 73502; 99213; G0463

== ENCOUNTER 2025-04-22 11:43 | Emergency (ER) | payer MEDICARE, OTHER, SELFPAY ==
--- NOTE | ~2025-04-22 | CT_ITS ---
Noncontrast CT scan of the pelvis CLINICAL HISTORY: Right hip trauma TECHNIQUE: Axial noncontrast imaging of the pelvis was performed, with sagittal and coronal reformatt ed images. Dose reduction technique was used on this scan by utilizing automated exposure control and iterative reconstruction technique. The dose-length product (DLP) was 486.84 mGy-cm. Findings: Right arthroplasty in place. No evidence of loosening. There acute, minimally displaced fra ctures of the right superior and inferior pubic rami (coronal image 60, axial image 89 for example). Left hip joint space is intact. There is mild degenerative change of both SI joints, left worse than right. Extensive amorphous hematoma and/or hemorrhagic fluid present in the lower pelvis anterior to the uri nary bladder, deep to the inferior rectus musculature. Urinary bladder grossly unremarkable in this e xam. IMPRESSION: Acute fractures of the right superior and inferior pubic rami, as detailed above. Extensive amorphous/ill-defined hematoma and/or hemorrhagic fluid in the pelvis anterior to the urina ry bladder, deep to the inferior aspect of the rectus abdominis musculature. This is presumably postt raumatic in nature. Reviewed, dictated and finalized at location . IMPRESSION: Acute fractures of the right superior and inferior pubic rami, as detailed abov e. Extensive amorphous/ill-defined hematoma and/or hemorrhagic fluid in the pelvis anterior to the urinary bladder, deep to the inferior aspect of the rectus abd ominis musculature. This is presumably posttraumatic in nature.
--- NOTE | ~2025-04-22 | CT_ITS ---
Non-contrast Head CT History: Head injury Technique: Axial non-contrast imaging of the brain was performed. Dose reduction technique was used on this scan by utilizing automated exposure control and iterative reconstruction technique. The dose -length product (DLP) was 605.33 mGy-cm. Findings: There is no evidence of intracranial hemorrhage, mass lesion, or acute infarct. Brain par enchyma appears normal. The ventricles and subarachnoid spaces are normal in size. The calvarium ap pears normal. The visualized paranasal sinuses and mastoid air cells are clear. Impression: No significant abnormality seen. Reviewed, dictated and finalized at location . Impression: No significant abnormality seen.
--- OUTSIDE RECORDS SUMMARY | 2025-04-22 11:46 | XMS_ITS | Clinical Summary ---
Author Organization [facility] Address [address] [place] [address] Care Team Providers Care Cloth Seconds Sorter Name Role Phone Edward De León MD Primary Care Provider [phone] Michael Bruno MD Unavailable [phone] Allergies Active Allergy Reactions Criticality Noted Date [...] (07/23/2022): Added automatically from request for surgery [id number] History of right hip replacement 08/15/2020 04/23/2023 Essential hypertension 07/24/2020 Hyperlipidemia 07/24/2020 Alcohol use 07/24/2020 Closed subcapital fracture of neck of right femu r 07/24/2020 Dehydration 07/24/2020 Pain in shoulder 10/10/2017 Encounters Date Type Department Care Team Description 02/10/2025 10:15 AM CDT Office Visit [facility] [address] [place] [address] Medical Office Building [address] [place] [address] Morris Disla MD S/P reverse total shoulder arthroplasty, right (Primary Dx) 02/10/2025 10:10 AM CDT - 02/10/2025 11:59 PM CDT Hospital Encounter [address] [facility] [place] [address] S/P reverse total shoulder arthroplasty, right Discharge Disposition: Discharge to home or self care 02/03/2025 1:30 PM CLASSROOM INSTRUCTIONAL AIDE Office Visit [facility] [address] [facility] [address] [place] [address] Carlos Harris MD Hyperlipidemia, unspecified hyperlipidemia type [...] on file Legal Sex Male 10:38 AM CLASSROOM INSTRUCTIONAL AIDE Gender Identity Male 10/31/2024 2:37 PM CLASSROOM INSTRUCTIONAL AIDE Sexual Orientation Not on file Obstetrics History Last Filed Vital Signs Vital Sign Reading Time Taken Comments Blood Pressure 126/72 02/03/2025 1:38 PM CLASSROOM INSTRUCTIONAL AIDE Pulse 57 02/03/2025 1:38 PM CLASSROOM INSTRUCTIONAL AIDE Temperature 36.4 C (97.5 F) 11/27/2024 9:31 AM CLASSROOM INSTRUCTIONAL AIDE Respiratory Rate 16 11/27/2024 9:31 AM CLASSROOM INSTRUCTIONAL AIDE Oxygen Saturation 97% 02/03/2025 1:38 PM CLASSROOM INSTRUCTIONAL AIDE Inhaled Oxygen Concentration - - Weight 83.9 kg (185 lb) 02/03/2025 1:38 PM CLASSROOM INSTRUCTIONAL AIDE Height 172.7 cm (5' 8 ) 11/27/2024 9:31 AM CLASSROOM INSTRUCTIONAL AIDE Body Mass Index 28.13 11/27/2024 9:31 AM CLASSROOM INSTRUCTIONAL AIDE Plan of Treatment Health Maintenance Due Date [...] 10/14/2023, 02/15/2022 Medical Devices Implanted Type Area Software Tools Developer Device Identifier Shelf Expiration Date Model / Serial / Lot Shoulder Replacement Left: Shoulder Screws Right: Ankle [employer] [id number] 46mm Modular Dual Mobility Primary Hip F Liner Acetabular Cocr - [id number] Implanted:Qty: 1 on 07/25/2020 by Michael Bruno MD at [facility] Right: Hip [employer] 06/22/2025 [id number] / / [id number] [employer] 58f Shell Acetabular Trident Ii Tritanium F Od58mm Hip 5 Screw Hole Cluster Sterile - [id number] Implanted:Qty: 1 on 07/25/2020 by Michael Bruno MD at [facility] Right: Hip [employer] [id number] 01/18/2025 [id number] / / [id number] [employer] [id number] Screw Bone Trident Ii L50mm Od6.5mm Low Profile Hexagonal Sterile - [id number] Implanted:Qty: 1 on 07/25/2020 by Michael Bruno MD at [facility] Right: Hip [employer] [id number] 07/15/2024 6314-3974 / / 4AC [employer] 2039-3206 Screw Bone Trident Ii L40mm Od6.5mm Low Profile Hexagonal Sterile - [id number] Implanted:Qty: 1 on 07/25/2020 by Michael Bruno MD at [facility] Right: Hip [employer] [id number] 08/04/2024 3892-4658 / / [id number] [employer] 2423-2108 Screw Bone Trident Ii L40mm Od6.5mm Low Profile Hexagonal Sterile - [id number] Implanted:Qty: 1 on 07/25/2020 by Michael Bruno MD at [facility] Right: Hip [employer] [id number] 08/04/2024 4862-7665 / / [id number] [employer] 7924-9704 Screw Bone Trident Ii L25mm Od6.5mm Low Profile Hexagonal Sterile - [id number] Implanted:Qty: 1 on 07/25/2020 by Michael Bruno MD at [facility] Right: Hip [employer] [id number] 10/12/2024 0861-0850 / / [id number] [employer] [id number] Adm Mobile Bearing Hip Catholic 46mm 52mm 28mm 8.9mm Hip - [id number] Implanted:Qty: 1 on 07/25/2020 by Michael Bruno MD at [facility] Right: Hip [employer] DUP [id number] 11/08/2024 [id number] / / [id number] [employer] 2102-7198 Accolade 114mm 37mm Modular Hip 127d 7 Taper Stem Femoral Sterile - [id number] Implanted:Qty: 1 on 07/25/2020 by Michael Bruno MD at [facility] Right: Hip [employer] [id number] 05/18/2025 6151-5643 / / [id number] [employer] 6570-0-228 V40 28mm Hip +4mm Offset Taper Head Femoral Biolox Delta - [id number] Implanted:Qty: 1 on 07/25/2020 by Michael Bruno MD at [facility] Right: Hip [employer] [id number] 05/29/2025 6570-0-228 / / [id number] [employer] 2.3mm 14mm Nontoggle Hexagonal Cortical Screw Bone Titanium Co-N2314 - [id number] Implanted:Qty: 1 on 07/26/2022 by Kadeem Salazar MD at [facility] Left: Clavicle [employer] CO-[id number] / / [employer] [id number] 11mm 12 Hole Clavicle Left Distal Superior Plate Bone 70-0112 - [id number] Implanted:Qty: 1 on 07/26/2022 by Kadeem Salazar MD at [facility] Left: Clavicle [employer] 70-0112 / / Description:[employer]UM[employer] 101X1 4MM 11MM 12 HOLE CLAVICLE LEFT DISTAL SUPERIOR PLATE BONE 70-0112 - [id number] [employer] 3.5mm 12mm Hexalobe Screw Bone Titanium Nonsterile Small Fragment 738271 - [id number] Implanted:Qty: 2 on 07/26/2022 by Kadeem Salazar MD at [facility] Left: Clavicle [employer] [id number] / / [employer] 3.5mm 14mm Hexalobe Screw Bone Titanium Nonsterile Small Fragment 30-0258 - [id number] Implanted:Qty: 5 on 07/26/2022 by Kadeem Salazar MD at [facility] Left: Clavicle [employer] 30-0258 / / [employer] 3.5mm 16mm Lock Hexalobe Screw Bone Titanium Nonsterile Small 864851 - [id number] Implanted:Qty: 1 on 07/26/2022 by Kadeem Salazar MD at [facility] Left: Clavicle [employer] [id number] / / [employer] 3.5mm 14mm Locking Hexalobe Elbow Screw Bone Sterile 30-0235-S - [id number] Implanted:Qty: 2 on 07/26/2022 by Kadeem Salazar MD at [facility] Left: Clavicle [employer] 30-0235-S / / [employer] Comprehensive Taper Adapter 25mm Mini Baseplate Glenoid Reverse [id number] - [id number] Implanted:Qty: 1 on 11/20/2024 at [facility] Right: Shoulder [employer] 03/08/2034 [id number] / / [id number] [employer] Comprehensive 6.5mm 25mm Central Hexagonal 3.5mm Screw Bone 388284 - [id number] Implanted:Qty: 1 on 11/20/2024 at [facility] Right: Shoulder [employer] 09/15/2034 689080 / / [id number] [employer] Comprehensive 4.75mm 30mm Fix Angle Lock Hexagonal 3.5mm Screw 984295 - [id number] Implanted:Qty: 1 on 11/20/2024 at [facility] Right: Shoulder [employer] 10/12/2034 679044 / / [id number] [employer] Comprehensive Versa-Dial 36mm Glenosphere Color Coded Shoulder +3 090590 - [id number] Implanted:Qty: 1 on 11/20/2024 at [facility] Right: Shoulder [employer] 10/01/2034 [id number] / / [id number] [employer] Comprehensive 4.75mm 30mm Fix Angle Lock Hexagonal 3.5mm Screw 143854 - [id number] Implanted:Qty: 1 on 11/20/2024 at [facility] Right: Shoulder [employer] 10/12/2034 159979 / / [id number] [employer] Comprehensive 4.75mm 15mm Fix Angle Lock Hexagonal 3.5mm Screw 174890 - [id number] Implanted:Qty: 1 on 11/20/2024 at [facility] Right: Shoulder [employer] 07/02/2034 697535 / / [id number] [employer] Stem Humeral Shoulder Reverse Standard Size 14 Identity [id number] - [id number] Implanted:Qty: 1 on 11/20/2024 at [facility] Right: Shoulder [employer] 11/18/2033 [id number] / / [id number] [employer] Humeral Tray Neutral -6mm Ext Sahtnem6 - [id number] Implanted:Qty: 1 on 11/20/2024 at [facility] Right: Shoulder [employer] 08/17/2034 [id number] / / [id number] [employer] Bearing Humeral Comprehensive Vivacit-E +3mm Od36mm Shoulder Reverse Retentive [id number] - [id number] Implanted:Qty: 1 on 11/20/2024 at [facility] Right: Shoulder [employer] 05/25/2029 [id number] / / [id number] Explanted Type Area Software Tools Developer Device Identifier Shelf Expiration Date Model / Serial / Lot [employer] 3.5mm 12mm Hexalobe Screw Bone Titanium Nonsterile Small Fragment [id number] - [id number] Explanted:Qty: 1 on 07/26/2022 at [facility] Left: Clavicle [employer] [id number] / / Procedures Procedure Name Priority Date/Time Associated Diagnosis Comments XR SHOULDER RIGHT 2 OR MORE VIEWS Schedule Routine, Read Routine (OP Routine) 02/10/2025 10:17 AM CDT S/P reverse total shoulder arthroplasty, right POCT LIPID PANEL Routine 02/03/2025 1:45 PM CLASSROOM INSTRUCTIONAL AIDE Hyperlipidemia, unspecified hyperlipidemia type EGFR Routine 11/21/2024 4:30 AM CLASSROOM INSTRUCTIONAL AIDE from Last 3 Months or Most Recently [...] * POCT lipid panel (02/03/2025 1:45 PM CLASSROOM INSTRUCTIONAL AIDE) Cholesterol, POC 178 mg/dL HDL, POC 52 mg/dL Triglycerides, POC 197 mg/dL LDL Cholesterol POC 87 mg/dL Chol/HDL Ratio, POC 1.7 Non-HDL Cholesterol, POC 126 mg/dL Cholesterol Total, POC 178 mg/dL Capillary blood 02/03/2025 1 :45 PM CLASSROOM INSTRUCTIONAL AIDE Carlos Harris MD POINT OF CARE TEST ORDE RABLES Final Result * eGFR (11/21/2024 4:30 AM CLASSROOM INSTRUCTIONAL AIDE) eGFR >90 >=60 mL/min/1. 73 m2 Comment: [...] last reviewed 2021. Blood 11/21/2024 4:30 AM CLASSROOM INSTRUCTIONAL AIDE 11/21/2024 4:36 AM CLASSROOM INSTRUCTIONAL AIDE Morris Disla MD LAB BLOOD ORDERAB LES Final Result [facility] [address] [facility] [place] [address] from Last 3 Months or Most Recently Relevant to Health Maintenance Insurance [employer] [place] [employer] Member Subscriber Plan / Payer (Ef fective 2021-Present) Name:Elijah German Relation to Subscriber:Self Name:Elijah German Payer ID:[id number] Group ID:Not on file Type:Studio SBV Address: [facility] [address] [place], [place] MEDICARE PH[employer]IC[employer]ANS [place] [employer] Member Subscriber Plan / Payer (Ef fective 2021-Present) Name:Elijah German Relation to Subscriber:Self Name:Elijah German Payer ID:[id number] Group ID:Not on file Type:Studio SBV Address: [facility] [address] [place], [place] Advance Directives For more information, please contact: [phone] * Full Code (Latest Code Status on File) Date Activated Date Inactivated Comments 11/20/2024 4:14 PM 11/21/2024 2:41 PM * Full Code Date Activated Date Inactivated Comments 07/24/2020 9:35 PM 07/26/2020 8:39 PM Care Teams Cloth Seconds Sorter Relationship Specialty Start Date End Date Edward De León MD PCP - General 12/27/17 Michael Bruno MD [address] [facility] [address] [address] Consulting Physician Orthopedic Surgery 07/26/20
--- OUTSIDE RECORDS SUMMARY | 2025-04-22 11:46 | XMS_ITS | Referral Summary ---
Author Organization [facility] Building D Address [address] [place] [address] Care Team Providers Care Art Professor Name Role Phone Edward De León MD Primary Care Provider [phone] Michael Bruno MD Unavailable [phone] Encounters Date Type Department Care Team Description 02/10/2025 10:10 AM CDT - 02/10/2025 11:59 PM CDT Hospital Encounter [address] 1 [facility] [address] [place] [id number] S/P reverse total shoulder arthroplasty, right Discharge Disposition: Discharge to home or self care 02/10/2025 10:15 AM CDT Office Visit [facility] Orthopaedic Surgery [address] [place] [address] Medical Office Building 1 [address] [place] [id number] Morris Disla MD S/P reverse total shoulder arthroplasty, right (Primary Dx) 02/03/2025 1:30 PM ELEMENTARY LIBRARIAN Office Visit [facility] Cardiology [address] [facility] [address] [place] [address] Carlos Harris MD Hyperlipidemia, unspecified [...] (07/23/2022): Added automatically from request for surgery [id number] History of right hip replacement 08/15/2020 04/23/2023 [...] on file Legal Sex Male 10:38 AM ELEMENTARY LIBRARIAN Gender Identity Male 10/31/2024 2:37 PM ELEMENTARY LIBRARIAN Sexual Orientation Not on file Last Filed Vital Signs Vital Sign Reading Time Taken Comments Blood Pressure 126/72 02/03/2025 1:38 PM ELEMENTARY LIBRARIAN Pulse 57 02/03/2025 1:38 PM ELEMENTARY LIBRARIAN Temperature 36.4 C (97.5 F) 11/27/2024 9:31 AM ELEMENTARY LIBRARIAN Respiratory Rate 16 11/27/2024 9:31 AM ELEMENTARY LIBRARIAN Oxygen Saturation 97% 02/03/2025 1:38 PM ELEMENTARY LIBRARIAN Inhaled Oxygen Concentration - - Weight 83.9 kg (185 lb) 02/03/2025 1:38 PM ELEMENTARY LIBRARIAN Height 172.7 cm (5' 8 ) 11/27/2024 9:31 AM ELEMENTARY LIBRARIAN Body Mass Index 28.13 11/27/2024 9:31 AM ELEMENTARY LIBRARIAN Plan of Treatment Not on file Medical Devices Implanted Type Area C Engineer Device Identifier Shelf Expiration Date Model / Serial / Lot Shoulder Replacement Left: Shoulder Screws Right: Ankle [employer] [id number] 46mm Modular Dual Mobility Primary Hip F Liner Acetabular Cocr - [id number] Implanted:Qty: 1 on 07/25/2020 by Michael Bruno MD at [facility] Right: Hip [employer] 06/22/2025 [id number] / / [id number] [employer] 7004-58f Shell Acetabular Trident Ii Tritanium F Od58mm Hip 5 Screw Hole Cluster Sterile - [id number] Implanted:Qty: 1 on 07/25/2020 by Michael Brnuo MD at [facility] Right: Hip [employer] [id number] 01/18/2025 702-04-58F / / [id number] [employer] 5879-3057 Screw Bone Trident Ii L50mm Od6.5mm Low Profile Hexagonal Sterile - [id number] Implanted:Qty: 1 on 07/25/2020 by Michael Bruno MD at [facility] Right: Hip [employer] [id number] 07/15/2024 7794-7477 / / [id number] [employer] 9451-4437 Screw Bone Trident Ii L40mm Od6.5mm Low Profile Hexagonal Sterile - [id number] Implanted:Qty: 1 on 07/25/2020 by Michael Bruno MD at [facility] Right: Hip [employer] [id number] 08/04/2024 6264-3773 / / [id number] [employer] 7785-1758 Screw Bone Trident Ii L40mm Od6.5mm Low Profile Hexagonal Sterile - [id number] Implanted:Qty: 1 on 07/25/2020 by Michael Bruno MD at [facility] Right: Hip [employer] [id number] 08/04/2024 7257-3466 / / [id number] [employer] [id number] Screw Bone Trident Ii L25mm Od6.5mm Low Profile Hexagonal Sterile - [id number] Implanted:Qty: 1 on 07/25/2020 by Michael Bruno MD at [facility] Right: Hip [employer] [id number] 10/12/2024 7564-4864 / / [id number] [employer] [id number] Adm Mobile Bearing Hip Mandaeism 46mm 52mm 28mm 8.9mm Hip - [id number] Implanted:Qty: 1 on 07/25/2020 by Michael Bruno MD at [facility] Right: Hip [employer] DUP [id number] 11/08/2024 [id number] / / [id number] [employer] 7365-3146 Accolade 114mm 37mm Modular Hip 127d 7 Taper Stem Femoral Sterile - [id number] Implanted:Qty: 1 on 07/25/2020 by Michael Bruno MD at [facility] Right: Hip [employer] [id number] 05/18/2025 3329-1906 / / [id number] [employer] 6570-0-228 V40 28mm Hip +4mm Offset Taper Head Femoral Biolox Delta - [id number] Implanted:Qty: 1 on 07/25/2020 by Michael Bruno MD at [facility] Right: Hip [employer] [id number] 05/29/2025 6570-0-228 / / [id number] [employer] 2.3mm 14mm Nontoggle Hexagonal Cortical Screw Bone Titanium Co-N2314 - [id number] Implanted:Qty: 1 on 07/26/2022 by Kadeem Salazar MD at [facility] Left: Clavicle [employer] [id number] / / [employer] [id number] 11mm 12 Hole Clavicle Left Distal Superior Plate Bone 70-0112 - [id number] Implanted:Qty: 1 on 07/26/2022 by Kadeem Salazar MD at [facility] [place] Left: Clavicle [employer] 70-0112 / / Description:[employer]UMED INC 101X1 4MM 11MM 12 HOLE CLAVICLE LEFT DISTAL SUPERIOR PLATE BONE 70-0112 - [id number] [employer] 3.5mm 12mm Hexalobe Screw Bone Titanium Nonsterile Small Fragment 900051 - [id number] Implanted:Qty: 2 on 07/26/2022 by Kadeem Salazar MD at [facility] [place] Left: Clavicle [employer] [id number] / / [employer] Inc 3.5mm 14mm Hexalobe Screw Bone Titanium Nonsterile Small Fragment 30-0258 - [id number] Implanted:Qty: 5 on 07/26/2022 by Kadeem Salazar MD at [facility] Left: Clavicle [employer] 30-0258 / / [employer] 3.5mm 16mm Lock Hexalobe Screw Bone Titanium Nonsterile Small [id number] - [id number] Implanted:Qty: 1 on 07/26/2022 by Kadeem Salazar MD at [facility] Left: Clavicle [employer] [id number] / / [employer] 3.5mm 14mm Locking Hexalobe Elbow Screw Bone Sterile 30-0235-S - [id number] Implanted:Qty: 2 on 07/26/2022 by Kadeem Salazar MD at [facility] Left: Clavicle [employer] 30-0235-S / / [employer] Comprehensive Taper Adapter 25mm Mini Baseplate Glenoid Reverse [id number] - [id number] Implanted:Qty: 1 on 11/20/2024 at [facility] Right: Shoulder [employer] 03/08/2034 [id number] / / [id number] [employer] Comprehensive 6.5mm 25mm Central Hexagonal 3.5mm Screw Bone 756126 - [id number] Implanted:Qty: 1 on 11/20/2024 at [facility] Right: Shoulder [employer] 09/15/2034 [id number] / / [id number] [employer] Comprehensive 4.75mm 30mm Fix Angle Lock Hexagonal 3.5mm Screw 969643 - [id number] Implanted:Qty: 1 on 11/20/2024 at [facility] Right: Shoulder [employer] 10/12/2034 [id number] / / [id number] [employer] Comprehensive Versa-Dial 36mm Glenosphere Color Coded Shoulder +3 557312 - [id number] Implanted:Qty: 1 on 11/20/2024 at [facility] Right: Shoulder [employer] 10/01/2034 259958 / / [id number] [employer] Comprehensive 4.75mm 30mm Fix Angle Lock Hexagonal 3.5mm Screw 697364 - [id number] Implanted:Qty: 1 on 11/20/2024 at [facility] Right: Shoulder [employer] 10/12/2034 900759 / / [id number] [employer] Comprehensive 4.75mm 15mm Fix Angle Lock Hexagonal 3.5mm Screw 951322 - [id number] Implanted:Qty: 1 on 11/20/2024 at [facility] Right: Shoulder [employer] 07/02/2034 [id number] / / [id number] [employer] Stem Humeral Shoulder Reverse Standard Size 14 Identity [id number] - [id number] Implanted:Qty: 1 on 11/20/2024 at [facility] Right: Shoulder [employer] 11/18/2033 [id number] / / [id number] [employer] Humeral Tray Neutral -6mm Ext Sahtnem6 - [id number] Implanted:Qty: 1 on 11/20/2024 at [facility] Right: Shoulder [employer] 08/17/2034 SAHTNEM6 / / [id number] [employer] Bearing Humeral Comprehensive Vivacit-E +3mm Od36mm Shoulder Reverse Retentive [id number] - [id number] Implanted:Qty: 1 on 11/20/2024 at [facility] Right: Shoulder [employer] 05/25/2029 [id number] / / [id number] Explanted Type Area C Engineer Device Identifier Shelf Expiration Date Model / Serial / Lot Sarah Gould 3.5mm 12mm Hexalobe Screw Bone Titanium Nonsterile Small Fragment [id number] - [id number] Explanted:Qty: 1 on 07/26/2022 at [facility] Left: Clavicle Sarah Gould [id number] / / Procedures Procedure Name Priority Date/Time Associated Diagnosis Comments XR SHOULDER RIGHT 2 OR MORE VIEWS Schedule Routine, Read Routine (OP Routine) 02/10/2025 10:17 AM CDT S/P reverse total shoulder arthroplasty, right POCT LIPID PANEL Routine 02/03/2025 1:45 PM ELEMENTARY LIBRARIAN Hyperlipidemia, unspecified hyperlipidemia type EGFR Routine 11/21/2024 4:30 AM ELEMENTARY LIBRARIAN from Last 3 Months or Most Recently [...] * POCT lipid panel (02/03/2025 1:45 PM ELEMENTARY LIBRARIAN) Cholesterol, POC 178 mg/dL HDL, POC 52 mg/dL Triglycerides, POC 197 mg/dL LDL Cholesterol POC 87 mg/dL Chol/HDL Ratio, POC 1.7 Non-HDL Cholesterol, POC 126 mg/dL Cholesterol Total, POC 178 mg/dL Capillary blood 02/03/2025 1 :45 PM ELEMENTARY LIBRARIAN Carlos Harris MD POINT OF CARE TEST PEGGY OROZCO Final Result * eGFR (11/21/2024 4:30 AM ELEMENTARY LIBRARIAN) eGFR >90 >=60 mL/min/1. 73 m2 Comment: [...] last reviewed 2021. Blood 11/21/2024 4:30 AM ELEMENTARY LIBRARIAN 11/21/2024 4:36 AM ELEMENTARY LIBRARIAN us Morris Disla MD LAB BLOOD ORDERAB LES Final Result Performing Organization Address City/State/ZIP Co wi Phone Number [facility] [address] [place] [address] from Last 3 Months or Most Recently Relevant to Health Maintenance Insurance [facility]IC[facility] [place] [employer] [employer] [place] [employer] [place] Member Subscriber Plan / Payer (Ef fective 2021-) Name:Elijah German Relation to Subscriber:Self Name:Elijah German Payer ID:[id number] Group ID:Not on file Type:Probki Iz okna Address: [address] ADARSH Flores Advance Directives For more information, please contact: [phone] * Full Code (Latest Code Status on File) Date Activated Date Inactivated Comments 11/20/2024 4:14 PM 11/21/2024 2:41 PM * Full Code Date Activated Date Inactivated Comments 07/24/2020 9:35 PM 07/26/2020 8:39 PM Care Teams Art Professor Relationship Specialty Start Date End Date Edward De León MD PCP - General 12/27/17 Michael Bruno MD [address] [address] Consulting Physician Orthopedic Surgery 07/26/20
--- OUTSIDE RECORDS SUMMARY | 2025-04-22 11:46 | XMS_ITS | Continuity of Care Document ---
Author Organization [facility] Address [address] [facility] [address] [place] [address] Phone Care Team Providers Care Circle Shear Operator Name Role Phone Michael Bruno MD, [...] visit Global/Postop followup visit Wrist Brace Tital Ragland Arm Sling, Ragland w/ strap 3 Carpal tunnel release Office/outpatient [...] Date Provider Providers Copied on Encounter [facility], [address], [id number], [phone] [facility] No Information 5 Damion ho. [address], [id number] , [place]. tel: [phone] [facility], [address], [id number], [place] tel:[phone] [facility] No Information 1 Abdulaziz Moore. [address], [id number] , [place]. tel: [phone] [facility], [address], [id number], [place] tel:[phone] [facility] Right Femur (chief complaint) Displaced fracture of base of neck of right femur, sequelaPresence of right artificial hip joint 0 Cintron Oscar. [address] [place] [address], [id number] , [place]. tel: [phone] Referring Provider: Senthil Leon, [address], [address]. tel:[phone] [facility], [address] [place] [address], [place], [place], [id number], [place] tel:[phone] [facility] No Information 0 Damion Bernardo er. [address] [facility], [place] [address], [place], [place], [id number] , [place]. tel:[phone] [facility], [address] [place] [address], [place], [id number], [place] [phone] [facility] Right Femur (chief complaint) Displaced fracture of base of neck of right femur, sequelaPresence of right artificial hip joint 0 Abdulaziz Moore. [address] [place] [address], [place], [place], [id number] , [place]. tel: [phone] Referring Provider: Senthil Leon, [address] [place] [address], [place], [address]. [phone] [facility], [address] [place] [address], [place], [place], [id number], [place] tel:[phone] [facility] Intracapsular fracture of right femur, initial encounter for closed fracture 0 Damion Bernardo er. [address] [place] [address], [place], [place], [id number] , [place]. tel: [phone] Initial hospital care, moderate [facility], [address] [place] [address], [place], [place], [id number], [place] [phone] [facility] No Information 0 Damion Bernardo er. [address] [place] [address], [place], [place], [id number] , [place]. tel: [phone] Referring Provider: Senthil Leon, [address] [place] [address], [place], [address]. tel:[phone] [facility], [address] [facility] [address], [place], [place], [id number], [place] tel:[phone] [facility] Carpal Tunnel Syndrome Mar-2 2-201 3 Strecker Randy. [address] [facility], [address], [place], [place], [id number] , [place]. tel: [phone] Referring Provider: Senthil Leon, [address] [facility] [address], [place], [address]. tel:[phone] [facility], [address] [facility] [address], [place], [place], [id number], [place] tel:[phone] [facility] Carpal Tunnel Syndrome Mar-0 1-201 3 Streariella Randy. [address] [facility], [place] [address], [place], [place], [id number] , [place]. tel: [phone] Referring Provider: Senthil Leon, [facility] [facility] [address], [place], [address]. tel:[phone] [facility], [address] [facility] [address], [place], [place], [id number], [place] tel:[phone] [facility] No Information Jan-2 0-201 3 Gemmaariella Randy. [address] [place] [address], [facility] [address], [place], [place], [id number] , [place]. tel:[phone] Referring Provider: Senthil Leon, [address] [facility] [address], [place], [address]. tel:[phone] Office/outpa tient visit,est, mod [facility], [address] [facility] [address], [place], [place], [id number], [place] tel:[phone] [facility] Carpal Tunnel Syndrome Jan- 8 3 Mone Randy. [address] [place] [address], [address], [place], [place], [id number] , [place]. tel: [phone] Referring Provider: Michael Tong, [address] [facility] [address], [place], [address]. tel:[phone] [facility], [address] [place] [address], [place], [place], [id number], [place] tel:[phone] [facility] Carpal Tunnel Syndrome Fe-0 3 Sanchez Bernardo vic. [address] [place] [address], [place], [place], [id number] , [place]. tel: [phone] Referring Provider: Cathy Tong, [address] [place] [address], [place], [address]. tel:[phone] Office/outpa tient visit,[facility], [address] [place] [address], [place], [place], [id number], [place] tel:[phone] [facility] BRACHIAL NEURITIS NOS 3 Ayaan Morgan. [address] [place] [address], [place], [place], [id number] , [place]. tel: [phone] Referring Provider: Senthil Leon, [address] [place] [address], [place], [address]. tel:[phone] Office/outpa tient visit,[facility], [address] [place] [address], [place], [place], [id number], [place] tel:[phone] [facility] DISC DIS NEC/NOS-CERV May-0 2 Ayaan Morgan. [address] [facility], [facility] [address], [place], [place], [id number] , [place]. tel: [phone] Referring Provider: Senthil Leon, [address] [place] [address], [place], [address]. tel:[phone] Office/outpa tient visit,[facility], [address] [place] [address], [place], [place], [id number], [place] tel:[phone] [facility] DISC DIS NEC/NOS-CERVPAI N IN LIMB Apr- 0-201 2 Abeln Cathy. [address] [facility], [address], [place], [place], [id number] , [place]. tel: [phone] Referring Provider: Senthil Leon, [address] [facility] [address], [place], [address]. tel:[phone] [facility], [address] [facility] [address], [place], [place], [id number], [place] [phone] [facility] CERVICAL DISC DISPLACMNT Apr-0 2-201 2 [facility]. [address] [facility], [address], [place], [place], [id number] , [place]. tel:[phone] Referring Provider: Senthil Leon, [address] [facility] [address], [place], [address]. tel:[phone] Office/outpa tient visit,est, [facility], [address] [place] [address], [place], [place], [id number], [place] tel:[phone] [facility] CERVICAL SPONDYLOSISBRAC HIAL NEURITIS NOSCERVICALGIA Mar-0 2-201 2 Abeln Cathy. [address] [facility], [facility] [address], [place], [place], [id number] , [place]. tel:[phone] Office/outpa tient visit,est, [facility], [address] [place] [address], [place], [place], [address], [place] tel:[phone] [facility] CARPAL TUNNEL SYNDROME May- 5 1 Mone Padilla. [address] [facility], [facility] [address], [place], [place], [address] , [place]. tel:[phone] Referring Provider: Nikos Rogers, [address] [facility], [place], [address]. tel:[phone] Office consultation , [facility], [address] [place] [address], [place], [place], [address], [place] tel:[phone] [facility] MONONEURITIS ARM NOSCERVICALGIA 0201 1 Mone Padilla. [address] [facility], [address], [place], [place], [address] , [place]. tel: [phone] Referring Provider: Nikos Rogers, [address] [facility], [place], [address]. [phone] Family History Family Member Type Diagnosis Age At Onset Father Problem (finding) Cancer, unknown Father Problem (finding) Heart Disease Payers Payer name Insurance type Covered republican ID Authoriza tion(s) Leon Blue Cross Blue [place] BL [id number] Social History Type Description Quantity Date Captured [...]
[2025-04-22 11:52] VITALS: BP 149/88; PULSE 95; RESP 16; TEMP 36.4; O2SAT 97
--- OUTSIDE RECORDS SUMMARY | 2025-04-22 13:10 | XMS_ITS | Continuity of Care Document ---
Author Organization [facility] Address [address] [place] [address] Phone Care Team Providers Care Taker Out Name Role Phone Michael Bruno MD, MD [...] visit Global/Postop followup visit Wrist Brace Tital [place] Arm Sling, [place] w/ strap 3 Carpal tunnel release Office/outpatient [...] Date Provider Providers Copied on Encounter [facility] [employer] [facility], [address], [id number], [phone] [facility] [employer] [facility] No Information 5 Damion ho. [address], [id number] , [place]. tel: [phone] [facility] [employer] [facility], [address], [id number], [place] tel:[phone] [facility] [employer] [facility] No Information 1 Abdulaziz Moore. [address], [id number] , [place]. tel: [phone] [facility] [employer] [facility], [address], [id number], [place] tel:[phone] [facility] [employer] Right Femur (chief complaint) Displaced fracture of base of neck of right femur, sequelaPresence of right artificial hip joint 0 Cintron Oscar. [address] [place] [address], [id number] , [place]. tel: [phone] Referring Provider: Senthil Leon, [address], [address]. tel:[phone] [facility], [address] [place] [address], [place], [place], [id number], [place] tel:[phone] [facility] No Information 0 Damion Bernardo er. [address] [facility], [place] [address], [place], [place], [id number] , [place]. tel:[phone] [facility], [address] [place] [address], [place], [place], [id number], [place] [phone] [facility] [employer] [facility] Right Femur (chief complaint) Displaced fracture of base of neck of right femur, sequelaPresence of right artificial hip joint 0 Abdulaziz Moore. [address] [place] [address], [place], [place], [id number] , [place]. tel: [phone] Referring Provider: Senthil Leon, [address] [place] [address], [place], [address]. [phone] [facility] [employer] [facility], [address] [place] [address], [place], [place], [id number], [place] tel:[phone] [facility] [employer] [facility] Intracapsular fracture of right femur, initial encounter for closed fracture 0 Damion Bernardo er. [address] [place] [address], [place], [place], [id number] , [place]. tel: [phone] Initial hospital care, moderate [facility], [address] [place] [address], [place], [place], [id number], [place] [phone] [facility] No Information 0 Damion Bernardo er. [address] [place] [address], [place], [place], [id number] , [place]. tel: [phone] Referring Provider: Senthil Leon, [address] [place] [address], [place], [address]. tel:[phone] [facility], [address] [facility] [address], [place], [place], [address], [place] tel:[phone] [facility] Carpal Tunnel Syndrome Mar-2 2-201 3 Strecker Randy. [address] [facility], [address], [place], [place], [id number] , [place]. tel: [phone] Referring Provider: Senthil Leon, [address] [facility] [address], [place], [address]. tel:[phone] [facility], [address] [facility] [address], [place], [place], [id number], [place] tel:[phone] [facility] Carpal Tunnel Syndrome Mar-0 1-201 3 Streariella Randy. [address] [facility], [place] [address], [place], [place], [id number] , [place]. tel: [phone] Referring Provider: Senthil Leon, [facility] [address], [place], [address]. tel:[phone] [facility], [address] [facility] [address], [place], [place], [address], [place] tel:[phone] [facility] No Information Jan-2 0-201 3 Gemmaariella Randy. [address] [place] [address], [facility] [address], [place], [place], [id number] , [place]. tel:[phone] Referring Provider: Senthil Leon, [address] [facility] [address], [place], [address]. tel:[phone] Office/outpa tient visit,est, mod [facility], [address] [facility] [address], [place], [place], [id number], [place] tel:[phone] [facility] Carpal Tunnel Syndrome Jan- 8 3 Mone Randy. [address] [place] [address], [address], [place], [place], [address] , [place]. tel: [phone] Referring Provider: Michael Tong, [address] [facility] [address], [place], [address]. tel:[phone] [facility], [address] [address], [place], [id number], [place] tel:[phone] [facility] Carpal Tunnel Syndrome Fe-0 3 Sanchez Bernardo vic. [address] [address], [place], [id number] , [place]. tel: [phone] Referring Provider: Cathy Tong, [address] [place] [address] [address], [place], [address]. tel:[phone] Office/outpa tient visit,[facility], [facility], [address] [address], [place], [address], [place] tel:[phone] [facility] BRACHIAL NEURITIS NOS 3 Ayaan Morgan. [address] [address], [place], [place], [address] , [place]. tel: [phone] Referring Provider: Senthil Leon, [address] [address], [place], [address]. tel:[phone] Office/outpa tient visit,[facility], [facility], [address] [address], [place], [place], [id number], [place] tel:[phone] [facility] DISC DIS NEC/NOS-CERV May-0 2 Ayaan Morgan. [address] [facility], [facility] [address], [place], [place], [id number] , [place]. tel: [phone] Referring Provider: Senthil Leon, [address] [address], [place], [address]. tel:[phone] Office/outpa tient visit,[facility], [facility], [address] [place] [address] [address], [place], [address], [place] tel:[phone] [facility] DISC DIS NEC/NOS-CERVPAI N IN LIMB Apr- 0-201 2 Abeln Cathy. [address] [facility], [address], [place], [place], [address] , [place]. tel: [phone] Referring Provider: Senthil Leon, [address] [facility] [address], [place], [address]. tel:[phone] [facility], [address] [facility] [address], [place], [place], [address], [place] [phone] [facility] CERVICAL DISC DISPLACMNT Apr-0 2-201 2 [facility]. [address] [facility], [address], [place], [place], [address] , [place]. tel:[phone] Referring Provider: Senthil Leon, [address] [facility] [address], [place], [address]. tel:[phone] Office/outpa tient visit,est, [facility], [address] [address], [place], [place], [address], [place] tel:[phone] [facility] CERVICAL SPONDYLOSISBRAC HIAL NEURITIS NOSCERVICALGIA Mar-0 2-201 2 Abeln Cathy. [address] [facility], [facility] [address], [place], [place], [address] , [place]. tel:[phone] Office/outpa tient visit,est, [facility], [address] [address], [place], [place], [id number], [place] tel:[phone] [facility] CARPAL TUNNEL SYNDROME May- 5 1 Mone Padilla. [address] [facility], [facility] [address], [place], [place], [address] , [place]. tel:[phone] Referring Provider: Nikos Rogers, [address] [facility], [place], [address]. tel:[phone] Office consultation , [facility], [address] [address], [place], [place], [id number], [place] tel:[phone] [facility] MONONEURITIS ARM NOSCERVICALGIA 0201 1 Mone Padilla. [address] [facility], [address], [place], [place], [address] , [place]. tel: [phone] Referring Provider: Nikos Rogesr, [address] [facility], [place], [address]. [phone] Family History Family Member Type Diagnosis Age At Onset Father Problem (finding) Cancer, unknown Father Problem (finding) Heart Disease Payers Payer name Insurance type Covered green party ID Authoriza tion(s) Leon Blue Cross Blue Shiel d [place] BL [id number] Social History Type Description Quantity Date Captured [...]
--- OUTSIDE RECORDS SUMMARY | 2025-04-22 13:10 | XMS_ITS | Referral Summary ---
Author Organization [facility] Building [address] Address [address] [place] [address] Care Team Providers Care Candy Vendor Name Role Phone Edward De León MD Primary Care Provider [phone] Michael Bruno MD Unavailable [phone] Encounters Date Type Department Care Team Description 02/10/2025 10:10 AM CDT - 02/10/2025 11:59 PM CDT Hospital Encounter [address] 1 [facility] [address] [place] [address] S/P reverse total shoulder arthroplasty, right Discharge Disposition: Discharge to home or self care 02/10/2025 10:15 AM CDT Office Visit [facility] Orthopaedic Surgery [address] [place] [address] Medical Office Building [address] [place] [address] Morris Disla MD S/P reverse total shoulder arthroplasty, right (Primary Dx) 02/03/2025 1:30 PM TABLET TESTER Office Visit [facility] Cardiology [address] [facility] [address] [place] [address] Carlos Harris MD Hyperlipidemia, unspecified [...] (07/23/2022): Added automatically from request for surgery [id number] History of right hip replacement 08/15/2020 04/23/2023 [...] on file Legal Sex Male 10:38 AM TABLET TESTER Gender Identity Male 10/31/2024 2:37 PM TABLET TESTER Sexual Orientation Not on file Last Filed Vital Signs Vital Sign Reading Time Taken Comments Blood Pressure 126/72 02/03/2025 1:38 PM TABLET TESTER Pulse 57 02/03/2025 1:38 PM TABLET TESTER Temperature 36.4 C (97.5 F) 11/27/2024 9:31 AM TABLET TESTER Respiratory Rate 16 11/27/2024 9:31 AM TABLET TESTER Oxygen Saturation 97% 02/03/2025 1:38 PM TABLET TESTER Inhaled Oxygen Concentration - - Weight 83.9 kg (185 lb) 02/03/2025 1:38 PM TABLET TESTER Height 172.7 cm (5' 8 ) 11/27/2024 9:31 AM TABLET TESTER Body Mass Index 28.13 11/27/2024 9:31 AM TABLET TESTER Plan of Treatment Not on file Medical Devices Implanted Type Area Nozzleman Device Identifier Shelf Expiration Date Model / Serial / Lot Shoulder Replacement Left: Shoulder Screws Right: Ankle [employer] [id number] 46mm Modular Dual Mobility Primary Hip F Liner Acetabular Cocr - [id number] Implanted:Qty: 1 on 07/25/2020 by Michael Bruno MD at [facility] Right: Hip [employer] 06/22/2025 [id number] / / [id number] [employer] 7004-58f Shell Acetabular Trident Ii Tritanium F Od58mm Hip 5 Screw Hole Cluster Sterile - [id number] Implanted:Qty: 1 on 07/25/2020 by Michael Bruno MD at [facility] Right: Hip [employer] [id number] 01/18/2025 702-04-58F / / [id number] [employer] 7551-1231 Screw Bone Trident Ii L50mm Od6.5mm Low Profile Hexagonal Sterile - [id number] Implanted:Qty: 1 on 07/25/2020 by Michael Bruno MD at [facility] Right: Hip [employer] [id number] 07/15/2024 8469-7115 / / [id number] [employer] 0649-5468 Screw Bone Trident Ii L40mm Od6.5mm Low Profile Hexagonal Sterile - [id number] Implanted:Qty: 1 on 07/25/2020 by Michael Bruno MD at [facility] Right: Hip [employer] [id number] 08/04/2024 8235-3310 / / [id number] [employer] 9468-4090 Screw Bone Trident Ii L40mm Od6.5mm Low Profile Hexagonal Sterile - [id number] Implanted:Qty: 1 on 07/25/2020 by Michael Bruno MD at [facility] Right: Hip [employer] [id number] 08/04/2024 4218-7850 / / [id number] [employer] 0946-2852 Screw Bone Trident Ii L25mm Od6.5mm Low Profile Hexagonal Sterile - [id number] Implanted:Qty: 1 on 07/25/2020 by Michael Bruno MD at [facility] Right: Hip [employer] [id number] 10/12/2024 2049-1885 / / [id number] [employer] [id number] Adm Mobile Bearing Hip [facility] 46mm 52mm 28mm 8.9mm Hip - [id number] Implanted:Qty: 1 on 07/25/2020 by Michael Bruno MD at [facility] Right: Hip [employer] DUP [id number] 11/08/2024 [id number] / / [id number] [employer] 6365-7360 Accolade 114mm 37mm Modular Hip 127d 7 Taper Stem Femoral Sterile - [id number] Implanted:Qty: 1 on 07/25/2020 by Michael Bruno MD at [facility] Right: Hip [employer] [id number] 05/18/2025 2318-6435 / / [id number] [employer] 6570-0-228 V40 28mm Hip +4mm Offset Taper Head Femoral Biolox Delta - [id number] Implanted:Qty: 1 on 07/25/2020 by Michael Bruno MD at [facility] Right: Hip [employer] [id number] 05/29/2025 6570-0-228 / / [id number] [employer] 2.3mm 14mm Nontoggle Hexagonal Cortical Screw Bone [employer]ium Co-N2314 - [id number] Implanted:Qty: 1 on 07/26/2022 by Kadeem Salazar MD at [facility] Left: Clavicle [employer] CO-[id number] / / [employer] [id number] 11mm 12 Hole Clavicle Left Distal Superior Plate Bone 70-0112 - [id number] Implanted:Qty: 1 on 07/26/2022 by Kadeem Salazar MD at [facility] Left: Clavicle [employer] 70-0112 / / Description:[employer]UMED INC 101X1 4MM 11MM 12 HOLE CLAVICLE LEFT DISTAL SUPERIOR PLATE BONE 70-0112 - [id number] [employer] 3.5mm 12mm Hexalobe Screw Bone Titanium Nonsterile Small Fragment 837594 - [id number] Implanted:Qty: 2 on 07/26/2022 by Kadeem Salazar MD at [facility] Left: Clavicle [employer] [id number] / / [employer] 3.5mm 14mm Hexalobe Screw Bone Titanium Nonsterile Small Fragment 30-0258 - [id number] Implanted:Qty: 5 on 07/26/2022 by Kadeem Salazar MD at [facility] Left: Clavicle [employer] 30-0258 / / [employer] 3.5mm 16mm Lock Hexalobe Screw Bone Titanium Nonsterile Small 334129 - [id number] Implanted:Qty: 1 on 07/26/2022 by Kadeem Salazar MD at [facility] Left: Clavicle [employer] [id number] / / [employer] 3.5mm 14mm Locking Hexalobe Elbow Screw Bone Sterile 30-0235-S - [id number] Implanted:Qty: 2 on 07/26/2022 by Kadeem Salazar MD at [facility] Left: Clavicle [employer] 30-0235-S / / [employer] Comprehensive Taper Adapter 25mm Mini Baseplate Glenoid Reverse [id number] - [id number] Implanted:Qty: 1 on 11/20/2024 at [facility] Right: Shoulder [employer] 03/08/2034 [id number] / / [id number] [employer] Comprehensive 6.5mm 25mm Central Hexagonal 3.5mm Screw Bone 494683 - [id number] Implanted:Qty: 1 on 11/20/2024 at [facility] Right: Shoulder [employer] 09/15/2034 995566 / / [id number] [employer] Comprehensive 4.75mm 30mm Fix Angle Lock Hexagonal 3.5mm Screw 625212 - [id number] Implanted:Qty: 1 on 11/20/2024 at [facility] Right: Shoulder [employer] 10/12/2034 505372 / / [id number] [employer] Comprehensive Versa-Dial 36mm Glenosphere Color Coded Shoulder +3 431513 - [id number] Implanted:Qty: 1 on 11/20/2024 at [facility] Right: Shoulder [employer] 10/01/2034 207214 / / [id number] [employer] Comprehensive 4.75mm 30mm Fix Angle Lock Hexagonal 3.5mm Screw 265261 - [id number] Implanted:Qty: 1 on 11/20/2024 at [facility] Right: Shoulder [employer] 10/12/2034 536418 / / [id number] [employer] Comprehensive 4.75mm 15mm Fix Angle Lock Hexagonal 3.5mm Screw 356070 - [id number] Implanted:Qty: 1 on 11/20/2024 at [facility] Right: Shoulder [employer] 07/02/2034 774053 / / [id number] [employer] Stem Humeral Shoulder Reverse Standard Size 14 Identity [id number] - [id number] Implanted:Qty: 1 on 11/20/2024 at [facility] Right: Shoulder [employer] 11/18/2033 [id number] / / [id number] [employer] Humeral Tray Neutral -6mm Ext Sahtnem6 - [id number] Implanted:Qty: 1 on 11/20/2024 at [facility] Right: Shoulder [employer] 08/17/2034 SAHTNEM6 / / [id number] [employer] Bearing Humeral Comprehensive Vivacit-E +3mm Od36mm Shoulder Reverse Retentive [id number] - [id number] Implanted:Qty: 1 on 11/20/2024 at [facility] Right: Shoulder [employer] 05/25/2029 [id number] / / [id number] Explanted Type Area Nozzleman Device Identifier Shelf Expiration Date Model / Serial / Lot Sarah Gould 3.5mm 12mm Hexalobe Screw Bone Titanium Nonsterile Small Fragment [id number] - [id number] Explanted:Qty: 1 on 07/26/2022 at [facility] Left: Clavicle Sarah Gould [id number] / / Procedures Procedure Name Priority Date/Time Associated Diagnosis Comments XR SHOULDER RIGHT 2 OR MORE VIEWS Schedule Routine, Read Routine (OP Routine) 02/10/2025 10:17 AM CDT S/P reverse total shoulder arthroplasty, right POCT LIPID PANEL Routine 02/03/2025 1:45 PM TABLET TESTER Hyperlipidemia, unspecified hyperlipidemia type EGFR Routine 11/21/2024 4:30 AM TABLET TESTER from Last 3 Months or Most Recently [...] * POCT lipid panel (02/03/2025 1:45 PM TABLET TESTER) Cholesterol, POC 178 mg/dL HDL, POC 52 mg/dL Triglycerides, POC 197 mg/dL LDL Cholesterol POC 87 mg/dL Chol/HDL Ratio, POC 1.7 Non-HDL Cholesterol, POC 126 mg/dL Cholesterol Total, POC 178 mg/dL Capillary blood 02/03/2025 1 :45 PM TABLET TESTER Carlos Harris MD POINT OF CARE TEST PEGGY OROZCO Final Result * eGFR (11/21/2024 4:30 AM TABLET TESTER) eGFR >90 >=60 mL/min/1. 73 m2 Comment: [...] last reviewed 2021. Blood 11/21/2024 4:30 AM TABLET TESTER 11/21/2024 4:36 AM TABLET TESTER us Morris Disla MD LAB BLOOD ORDERAB LES Final Result Performing Organization Address City/State/ZIP Co la Phone Number [facility] [address] Department [place] [address] from Last 3 Months or Most Recently Relevant to Health Maintenance Insurance MEDICARE [facility] [place] [employer] [place] [employer] [place] Member Subscriber Plan / Payer (Ef fective 2021-) Name:Elijah German Relation to Subscriber:Self Name:Elijah German Payer ID:[id number] Group ID:Not on file Type:SqueezeCMM Address: [address] ADARSH [place] Advance Directives For more information, please contact: [phone] * Full Code (Latest Code Status on File) Date Activated Date Inactivated Comments 11/20/2024 4:14 PM 11/21/2024 2:41 PM * Full Code Date Activated Date Inactivated Comments 07/24/2020 9:35 PM 07/26/2020 8:39 PM Care Teams Candy Vendor Relationship Specialty Start Date End Date Edward De León MD PCP - General 12/27/17 Michael Bruno MD [address] [address] Consulting Physician Orthopedic Surgery 07/26/20
--- OUTSIDE RECORDS SUMMARY | 2025-04-22 13:10 | XMS_ITS | Clinical Summary ---
Author Organization [facility] D Address [address] [place] [id number] Care Team Providers Care Driving Teacher Name Role Phone Edward De León MD Primary Care Provider + [phone] Michael Bruno MD Unavailable [phone] Allergies Active Allergy Reactions Criticality Noted Date [...] (07/23/2022): Added automatically from request for surgery [id number] History of right hip replacement 08/15/2020 04/23/2023 Essential hypertension 07/24/2020 Hyperlipidemia 07/24/2020 Alcohol use 07/24/2020 Closed subcapital fracture of neck of right femu r 07/24/2020 Dehydration 07/24/2020 Pain in shoulder 10/10/2017 Encounters Date Type Department Care Team Description 02/10/2025 10:15 AM CDT Office Visit [facility] Orthopaedic Surgery [address] [place] [address] Medical Office Building [address] [place] [address] Morris Disla MD S/P reverse total shoulder arthroplasty, right (Primary Dx) 02/10/2025 10:10 AM CDT - 02/10/2025 11:59 PM CDT Hospital Encounter [address] [facility] [address] [place] [address] S/P reverse total shoulder arthroplasty, right Discharge Disposition: Discharge to home or self care 02/03/2025 1:30 PM VICE PRESIDENT OF SOFTWARE DEVELOPMENT Office Visit [facility] Medical Group Cardiology [address] [facility] [address] [facility] [address] [place] [id number] Carlos Harris MD Hyperlipidemia, unspecified hyperlipidemia type [...] on file Legal Sex Male 10:38 AM VICE PRESIDENT OF SOFTWARE DEVELOPMENT Gender Identity Male 10/31/2024 2:37 PM VICE PRESIDENT OF SOFTWARE DEVELOPMENT Sexual Orientation Not on file Obstetrics History Last Filed Vital Signs Vital Sign Reading Time Taken Comments Blood Pressure 126/72 02/03/2025 1:38 PM VICE PRESIDENT OF SOFTWARE DEVELOPMENT Pulse 57 02/03/2025 1:38 PM VICE PRESIDENT OF SOFTWARE DEVELOPMENT Temperature 36.4 C (97.5 F) 11/27/2024 9:31 AM VICE PRESIDENT OF SOFTWARE DEVELOPMENT Respiratory Rate 16 11/27/2024 9:31 AM VICE PRESIDENT OF SOFTWARE DEVELOPMENT Oxygen Saturation 97% 02/03/2025 1:38 PM VICE PRESIDENT OF SOFTWARE DEVELOPMENT Inhaled Oxygen Concentration - - Weight 83.9 kg (185 lb) 02/03/2025 1:38 PM VICE PRESIDENT OF SOFTWARE DEVELOPMENT Height 172.7 cm (5' 8 ) 11/27/2024 9:31 AM VICE PRESIDENT OF SOFTWARE DEVELOPMENT Body Mass Index 28.13 11/27/2024 9:31 AM VICE PRESIDENT OF SOFTWARE DEVELOPMENT Plan of Treatment Health Maintenance Due Date [...] 10/14/2023, 02/15/2022 Medical Devices Implanted Type Area Property Maintenance Supervisor Device Identifier Shelf Expiration Date Model / Serial / Lot Shoulder Replacement Left: Shoulder Screws Right: Ankle [employer] [id number] 46mm Modular Dual Mobility Primary Hip F Liner Acetabular Cocr - [id number] Implanted:Qty: 1 on 07/25/2020 by Michael Bruno MD at [facility] Right: Hip [employer] 06/22/2025 [id number] / / [id number] [employer] 58f Shell Acetabular Trident Ii Tritanium F Od58mm Hip 5 Screw Hole Cluster Sterile - [id number] Implanted:Qty: 1 on 07/25/2020 by Michael Bruno MD at [facility] Right: Hip [employer] [id number] 01/18/2025 [id number] / / [id number] [employer] 2341-3464 Screw Bone Trident Ii L50mm Od6.5mm Low Profile Hexagonal Sterile - [id number] Implanted:Qty: 1 on 07/25/2020 by Michael Bruno MD at [facility] Right: Hip [employer] [id number] 07/15/2024 3248-9875 / / [id number] [employer] [id number] Screw Bone Trident Ii L40mm Od6.5mm Low Profile Hexagonal Sterile - [id number] Implanted:Qty: 1 on 07/25/2020 by Michael Bruno MD at [facility] Right: Hip [employer] [id number] 08/04/2024 1460-8184 / / [id number] [employer] [id number] Screw Bone Trident Ii L40mm Od6.5mm Low Profile Hexagonal Sterile - [id number] Implanted:Qty: 1 on 07/25/2020 by Michael Bruno MD at [facility] Right: Hip [employer] [id number] 08/04/2024 6488-8640 / / [id number] [employer] [id number] Screw Bone Trident Ii L25mm Od6.5mm Low Profile Hexagonal Sterile - [id number] Implanted:Qty: 1 on 07/25/2020 by Michael Bruno MD at [facility] Right: Hip [employer] [id number] 10/12/2024 1671-7855 / / [id number] [employer] [id number] Adm Mobile Bearing Hip Taoism 46mm 52mm 28mm 8.9mm Hip - [id number] Implanted:Qty: 1 on 07/25/2020 by Michael Bruno MD at [facility] Right: Hip [employer] DUP [id number] 11/08/2024 [id number] / / [id number] [employer] 2910-7587 Accolade 114mm 37mm Modular Hip 127d 7 Taper Stem Femoral Sterile - [id number] Implanted:Qty: 1 on 07/25/2020 by Michael Bruno MD at [facility] Right: Hip [employer] [id number] 05/18/2025 8577-9484 / / [id number] [employer] 6570-0-228 V40 28mm Hip +4mm Offset Taper Head Femoral Biolox Delta - [id number] Implanted:Qty: 1 on 07/25/2020 by Michael Bruno MD at [facility] Right: Hip [employer] [id number] 05/29/2025 6570-0-228 / / [id number] [employer] 2.3mm 14mm Nontoggle Hexagonal Cortical Screw Bone [employer] Co-N2314 - [id number] Implanted:Qty: 1 on 07/26/2022 by Kadeem Salazar MD at [facility] Left: Clavicle [employer] CO-[id number] / / [employer] [id number] 11mm 12 Hole Clavicle Left Distal Superior Plate Bone 70-0112 - [id number] Implanted:Qty: 1 on 07/26/2022 by Kadeem Salazar MD at [facility] Left: Clavicle [employer] 70-0112 / / Description:[employer]UM[employer] 101X1 4MM 11MM 12 HOLE CLAVICLE LEFT DISTAL SUPERIOR PLATE BONE 70-0112 - [id number] [employer] 3.5mm 12mm Hexalobe Screw Bone Titanium Nonsterile Small Fragment [id number] - [id number] Implanted:Qty: 2 on 07/26/2022 by Kadeem Salazar MD at [facility] Left: Clavicle [employer] [id number] / / [employer] 3.5mm 14mm Hexalobe Screw Bone Titanium Nonsterile Small Fragment 30-0258 - [id number] Implanted:Qty: 5 on 07/26/2022 by Kadeem Salazar MD at [facility] Left: Clavicle [employer] 30-0258 / / [employer] 3.5mm 16mm Lock Hexalobe Screw Bone Titanium Nonsterile Small 530287 - [id number] Implanted:Qty: 1 on 07/26/2022 by Kadeem Salazar MD at [facility] Left: Clavicle [employer] [id number] / / [employer] 3.5mm 14mm Locking Hexalobe Elbow Screw Bone Sterile 30-0235-S - [id number] Implanted:Qty: 2 on 07/26/2022 by Kadeem Salazar MD at [facility] Left: Clavicle [employer] 30-0235-S / / [employer] Comprehensive Taper Adapter 25mm Mini Baseplate Glenoid Reverse [id number] - [id number] Implanted:Qty: 1 on 11/20/2024 at [facility] Right: Shoulder [employer] 03/08/2034 [id number] / / [id number] [employer] Comprehensive 6.5mm 25mm Central Hexagonal 3.5mm Screw Bone 124257 - [id number] Implanted:Qty: 1 on 11/20/2024 at [facility] Right: Shoulder [employer] 09/15/2034 [id number] / / [id number] [employer] Comprehensive 4.75mm 30mm Fix Angle Lock Hexagonal 3.5mm Screw [id number] - [id number] Implanted:Qty: 1 on 11/20/2024 at [facility] Right: Shoulder [employer] 10/12/2034 [id number] / / [id number] [employer] Comprehensive Versa-Dial 36mm Glenosphere Color Coded Shoulder +3 [id number] - [id number] Implanted:Qty: 1 on 11/20/2024 at [facility] Right: Shoulder [employer] 10/01/2034 [id number] / / [id number] [employer] Comprehensive 4.75mm 30mm Fix Angle Lock Hexagonal 3.5mm Screw 556167 - [id number] Implanted:Qty: 1 on 11/20/2024 at [facility] Right: Shoulder [employer] 10/12/2034 [id number] / / [id number] [employer] Comprehensive 4.75mm 15mm Fix Angle Lock Hexagonal 3.5mm Screw 114407 - [id number] Implanted:Qty: 1 on 11/20/2024 at [facility] Right: Shoulder [employer] 07/02/2034 [id number] / / [id number] [employer] Stem Humeral Shoulder Reverse Standard Size 14 Identity [id number] - [id number] Implanted:Qty: 1 on 11/20/2024 at [facility] Right: Shoulder [employer] 11/18/2033 [id number] / / [id number] [employer] Humeral Tray Neutral -6mm Ext Sahtnem6 - [id number] Implanted:Qty: 1 on 11/20/2024 at [facility] Right: Shoulder [employer] 08/17/2034 [id number] / / [id number] [employer] Bearing Humeral Comprehensive Vivacit-E +3mm Od36mm Shoulder Reverse Retentive [id number] - [id number] Implanted:Qty: 1 on 11/20/2024 at [facility] Right: Shoulder [employer] 05/25/2029 [id number] / / [id number] Explanted Type Area Property Maintenance Supervisor Device Identifier Shelf Expiration Date Model / Serial / Lot [employer] 3.5mm 12mm Hexalobe Screw Bone Titanium Nonsterile Small Fragment [id number] - [id number] Explanted:Qty: 1 on 07/26/2022 at [facility] Left: Clavicle [employer] [id number] / / Procedures Procedure Name Priority Date/Time Associated Diagnosis Comments XR SHOULDER RIGHT 2 OR MORE VIEWS Schedule Routine, Read Routine (OP Routine) 02/10/2025 10:17 AM CDT S/P reverse total shoulder arthroplasty, right POCT LIPID PANEL Routine 02/03/2025 1:45 PM VICE PRESIDENT OF SOFTWARE DEVELOPMENT Hyperlipidemia, unspecified hyperlipidemia type EGFR Routine 11/21/2024 4:30 AM VICE PRESIDENT OF SOFTWARE DEVELOPMENT from Last 3 Months or Most Recently [...] * POCT lipid panel (02/03/2025 1:45 PM VICE PRESIDENT OF SOFTWARE DEVELOPMENT) Cholesterol, POC 178 mg/dL HDL, POC 52 mg/dL Triglycerides, POC 197 mg/dL LDL Cholesterol POC 87 mg/dL Chol/HDL Ratio, POC 1.7 Non-HDL Cholesterol, POC 126 mg/dL Cholesterol Total, POC 178 mg/dL Capillary blood 02/03/2025 1 :45 PM VICE PRESIDENT OF SOFTWARE DEVELOPMENT Carlos Harris MD POINT OF CARE TEST ORDE RABLES Final Result * eGFR (11/21/2024 4:30 AM VICE PRESIDENT OF SOFTWARE DEVELOPMENT) eGFR >90 >=60 mL/min/1. 73 m2 Comment: [...] last reviewed 2021. Blood 11/21/2024 4:30 AM VICE PRESIDENT OF SOFTWARE DEVELOPMENT 11/21/2024 4:36 AM VICE PRESIDENT OF SOFTWARE DEVELOPMENT Morris Disla MD LAB BLOOD ORDERAB LES Final Result [facility] [address] [facility] [place] [address] from Last 3 Months or Most Recently Relevant to Health Maintenance Insurance [employer] [place] [employer] Member Subscriber Plan / Payer (Ef fective 2021-Present) Name:Elijah German Relation to Subscriber:Self Name:Elijah German Payer ID:[id number] Group ID:Not on file Type:[employer] Address: [facility] [address] [place], [place] MEDICARE [employer] [place] [employer] Member Subscriber Plan / Payer (Ef fective 2021-Present) Name:Elijah German Relation to Subscriber:Self Name:Elijah German Payer ID:[id number] Group ID:Not on file Type:[employer] Address: [facility] [address] [place], [place] Advance Directives For more information, please contact: [phone] * Full Code (Latest Code Status on File) Date Activated Date Inactivated Comments 11/20/2024 4:14 PM 11/21/2024 2:41 PM * Full Code Date Activated Date Inactivated Comments 07/24/2020 9:35 PM 07/26/2020 8:39 PM Care Teams Driving Teacher Relationship Specialty Start Date End Date Edward De Lenó MD PCP - General 12/27/17 Michael Bruno MD [address] [facility] JINA MARTIN [address] [address] Consulting Physician Orthopedic Surgery 07/26/20
[2025-04-22] MEDS: HYDROcodone/acetaminophen (*CRX) 5-325 MG TABLET 1 TAB PO (13:21)
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
[2025-04-22 14:30] VITALS: BP 104/95; PULSE 67; RESP 18; O2SAT 97
[2025-04-22 14:34] LABS: Basophils Percent Auto 0.3 % (0.2-1.2); Eosinophils Percent Auto 0.2 % (0-4.4); Hematocrit 45.4 % (42.0-52.0); Hemoglobin 14.4 g/dL (14.0-18.0); Immature Granulocyte Absolute 0.09 K/mm3 (0.00-0.031); Immature Granulocyte Percent A 0.7 % (0-0.5); Lymphocytes Absolute Auto 0.92 K/mm3 (0.9-3.2); Lymphocytes Percent Auto 6.9 % (18.3-44.2); Mean Corpuscular HGB Conc 31.7 g/dl (32-36); Mean Corpuscular Hemoglobin 29.9 pg (26-34); Mean Corpuscular Volume 94.4 fl (80-100); Monocytes Absolute Auto 1.4 K/mm3 (0.1-0.6); Monocytes Percent Auto 10.2 % (2.6-8.5); Neutrophils Absolute Auto 10.9 K/mm3 (1.3-6.7); Neutrophils Percent Auto 81.7 % (45.5-73.1); Platelet Count Result 236 k/mm3 (150-375); Red Blood Count 4.81 M/mm3 (4.6-6.20); Red Cell Distribution Width 14.7 % (11.5-14.5); White Blood Count 13.3 K/mm3 (4.5-10.0)
[2025-04-22 14:37] LABS: Add Urine Microscopic? YES; Appearance Urine Clear (Clear); Bacteria Urine None Seen /hpf; Bilirubin Urine Negative (Negative); Blood Urine Negative (Negative); Color Urine Yellow (Yellow); Glucose Urine UA Negative (Negative); Ketones Urine Negative (Negative); Leukocyte Esterase Ur Trace LEU/UL (Negative); Nitrate Urine Negative (Negative); Protein Urine Negative (Negative); RBC Urine 0-2 /hpf (0-2); Specific Grav Ur 1.021 (1.001-1.035); Squamous Epithelial Cell Urine None Seen /hpf (Few); Urobilinogen Urine 0.2 mg/dL (<2.0); WBC Urine 0-5 /hpf (0-3)
[2025-04-22 14:40] LABS: Alanine Aminotransferase 36 U/L (6-50); Albumin Level 4.3 g/dL (3.5-5.1); Alkaline Phosphatase 52 U/L (38-126); Anion Gap 8 mmol/L (4-12); Aspartate Amino Transferase 44 U/L (17-59); Bilirubin,Total 0.7 mg/dL (0.2-1.3); Blood Urea Nitrogen 23 mg/dL (9-20); Calcium 8.8 mg/dL (8.4-10.2); Carbon Dioxide 26 mmol/L (22-30); Chloride 103 mmol/L (98-107); Estimated CRCL calculation 81 ml/min; Estimated Glomerular Filt Rate > 60; Glucose 104 mg/dL (65-110); Potassium 4.5 mmol/L (3.4-5.0); Sodium 137 mmol/L (137-145)
[2025-04-22] MEDS: SODIUM CHLORIDE 0.9% IV 1,000 ML 999 ML IV CONT (14:40)
[2025-04-22 14:46] VITALS: BP 137/55; PULSE 73; RESP 18; O2SAT 97
--- NOTE | 2025-04-22 15:47 | PC.NURSE ---
To [facility] via [facility] ems. Condition stable.
== END 2025-04-22 15:48 | disposition short-term general hospital (02) ==
PROVIDERS: Emergency Provider Emergency Medicine
DX: S32.591A Other specified fracture of right pubis, initial encounter for closed fracture (principal); S36.899A Unspecified injury of other intra-abdominal organs, initial encounter; I10 Essential (primary) hypertension; E11.9 Type 2 diabetes mellitus without complications; M19.011 Primary osteoarthritis, right shoulder; Z96.612 Presence of left artificial shoulder joint; Z96.641 Presence of right artificial hip joint; Z79.02 Long term (current) use of antithrombotics/antiplatelets; V18.0XXA Pedal cycle driver injured in noncollision transport accident in nontraffic accident, initial encounter; Y93.55 Activity, bike riding
CPT/HCPCS: 36415; 70450; 72192; 80053; 81001; 85025; 96360; 99285; A9270; J7030

== ENCOUNTER 2025-05-06 08:54 | Outpatient (CLI) | payer MEDICARE, OTHER, SELFPAY ==
--- NOTE | ~2025-05-06 | CT_ITS ---
CT Scan of the Chest without Contrast: Clinical Indication: Pulmonary nodule Technique: Contiguous sections were acquired throughout the chest without intravenous contrast. Dose reduction technique was used on this scan by utilizing automated exposure control and iterative recon struction technique. The dose-length product (DLP) was 366.63 mGy-cm. Findings: There is no evidence of any significant mediastinal, hilar or axillary lymphadenopathy. The mediastin al soft tissues appear normal. There is no evidence of pleural or pericardial effusion. Calcified right lower lobe granuloma present. 4 mm right middle lobe nodule present (axial image 59). Images through the upper abdomen reveal no abnormalities. Impression: 4 mm right middle lobe pulmonary nodule. According to Fleischner Society criteria, for a low-risk pat ient, no further follow-up required. For a high-risk patient, consider 12 month follow-up CT. Reviewed, dictated and finalized at [facility]. Impression: 4 mm right middle lobe pulmonary nodule. According to Fleischner Society criter ia, for a low-risk patient, no further follow-up required. For a high-risk prabhjot ent, consider 12 month follow-up CT.
== END 2025-05-06 08:55 | disposition home or self-care (01) ==
LOC: GOSHIMG 08:57
PROVIDERS: PCP Nurse Practitioner Family; Visit Provider Nurse Practitioner Family
DX: R91.1 Solitary pulmonary nodule (principal)
CPT/HCPCS: 71250

== ENCOUNTER 2025-07-29 09:29 | Outpatient (CLI) | payer MEDICARE, OTHER, SELFPAY ==
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
--- OUTSIDE RECORDS SUMMARY | 2025-07-29 09:40 | XMS_ITS | Clinical Summary ---
Author Organization [facility] Address [address] [place] [address] Care Team Providers Care Micro Paleontologist Name Role Phone Edward De León MD Primary Care Provider [phone] Michael Bruno MD Unavailable [phone] Allergies Active Allergy Reactions Criticality Noted Date Comments Rosuvastatin Muscle pain Medium 01/11/2025 Muscle pain/cramps with 40 mg dose Medications pyridoxine (vitamin B-6) 250 mg tablet take 1 tablet by oral route every day 0 0 6 Active loratadine (CLARITIN) 10 mg tablet Take 1 tablet (10 mg total) by mouth every morning Active multivitamin capsule Take 1 capsule by mouth every morning Active ascorbic acid (vitamin C) 1,000 mg tablet Take 1 tablet (1,000 mg total) by mouth every morning Active omega-3 fatty acids-fish oil 300-1,000 mg capsule Take 1 capsule (1 g total) by mouth every morning Active amLODIPine (NORVASC) 10 mg tabletIndications:E ssential hypertension TAKE 1 TABLET (10 MG TOTAL) BY MOUTH EVERY MORNING 90 tablet 1 5 02/23/20 26 Active lisinopriL (PRINIVIL,ZESTRIL) 5 mg tabletIndications:E ssential hypertension TAKE 1 TABLET (5 MG TOTAL) BY MOUTH EVERY MORNING 90 tablet 1 5 03/22/20 26 Active clopidogreL (PLAVIX) 75 mg tabletIndications:A maurosis fugax,Amaurosis fugax of right eye TAKE 1 TABLET BY MOUTH EVERY DAY 90 tablet 3 5 Active methocarbamoL (ROBAXIN) 500 mg tablet Take 1 tablet (500 mg total) by mouth 4 (four) times a day as needed for muscle spasms 16 tablet 5 Active apixaban (ELIQUIS) 2.5 mg tablet Take 1 tablet (2.5 mg total) by mouth 2 (two) times a day for 28 days 56 tablet 5 Active cholecalciferol (VITAMIN D-3) 25 mcg (1,000 unit) tablet Take 1 tablet (1,000 Units total) by mouth daily 30 tablet 5 Active alirocumab (Praluent Pen) 75 mg/mL pen injectorIndications :atherosclerotic cardiovascular disease Inject 75 mg under the skin every 2 (two) weeks 2 mL 11 5 05/12/20 26 Active Active Problems Problem Noted Date Diagnosed Date CVA (cerebral vascular accident) 04/23/2025 Assessment & Plan (04/23/2025 1:55 PM CDT): -CVA 2021 w/o residual deficits on Plavix -will hold Plavix on discharge until next Saturday. Please follow up with previously established provider for medication management and refill. Encounter for medication review 04/23/2025 Assessment & Plan (04/23/2025 1:55 PM CDT): -reviewed at bedside with pt. Discharge planning issues 04/23/2025 Assessment & Plan (04/23/2025 1:56 PM CDT): -04/23 Patient is medically stable for discharge, SW/CM updated. Discharge home today Closed fracture of superior ramus of pubis, initial encounter 04/22/2025 Pubic ramus fracture 04/22/2025 Assessment & Plan (04/23/2025 1:50 PM CDT): # Right superior and inferior pubic ramus fx # Right sacral ala fx - with associated small (3 x 2 cm) hematoma anterior to the bladder; UA negative for blood and every tested product - Ortho c/s - WBAT with a walker - Non operative management - PT/OT/Pain control -will have Eliquis 2.5mg BID x 4weeks on discharge for DVT prophylaxis. Orthopedic have not yet scheduled this patient for an appointment, but we will contact the patient with the details including the timing and location of their appointment once it is scheduled. Solitary pulmonary nodule 11/27/2024 Osteoarthritis of right shou lder, unspecified osteoarthritis type 11/20/2024 Post-traumatic osteoarthritis of right shoulder 10/12/2024 Left carpal tunnel syndrome 04/25/2023 Closed displaced fracture of left clavicle with delayed healing 07/23/2022 Overview (07/23/2022): Added automatically from request for surgery [id number] History of right hip replacement 08/15/2020 04/23/2023 Essential hypertension 07/24/2020 Assessment & Plan (04/23/2025 1:49 PM CDT): -cont amlodipine and lisinopril Follow up with previously established provider for ongoing evaluation. Hyperlipidemia 07/24/2020 Assessment & Plan (04/23/2025 1:49 PM CDT): -no home meds Follow up with previously established provider for ongoing evaluation. Alcohol use 07/24/2020 Closed subcapital fracture of neck of right femu r 07/24/2020 Dehydration 07/24/2020 Pain in shoulder 10/10/2017 Encounters Date Type Department Care Team Description 07/08/2025 Orders Only [facility] MRI [address] [place] [address] Miscellaneous, Not In File 06/01/2025 9:30 AM CDT Office Visit [facility] Orthopaedic Surgery [address] [place] [address] 6th [place] [address] [place] [address] Bari Colvin MD Closed fracture of superior ramus of pubis, initial encounter (HCC) (Primary Dx) 06/01/2025 8:05 AM CDT - 06/01/2025 11:59 PM CDT Hospital Encounter [facility] [address] [place] [address] Bari Colvin MD Closed fracture of superior ramus of pubis, initial encounter (HCC) Discharge Disposition: Discharge to home or self care 05/24/2025 8:30 AM CDT Office Visit [facility] Pulmonary [address] [facility] 8th [place] [address] [place] [address] Jemma Marroquin NP Solitary pulmonary nodule (Primary Dx); Seasonal allergies; Immunization counseling; Closed fracture of pubic ramus, unspecified laterality, sequela 05/24/2025 6:55 AM CDT - 05/24/2025 11:59 PM CDT Hospital Encounter [facility] ([facility]) [address] [place] [address] Solitary pulmonary nodule Discharge Disposition: Discharge to home or self care 05/14/2025 Telephone [facility] [address] [place] [address] [place] [phone] Carlos Harris MD Medication Problem 05/12/2025 2:00 PM CDT Office Visit [facility] [address] [place] [address] [place] [phone] Carlos Harris MD Carotid artery disease without cerebral infarction (Primary Dx); Hyperlipidemia, unspecified hyperlipidemia type; Statin intolerance; Pure hypercholesterolemia 05/11/2025 Telephone [facility] [address] [place] [phone] Carlos Harris MD Confirm appointment 05/06/2025 Telephone [facility] [address] [place] [address] [place] [phone] Carlos Harris MD 05/04/2025 Telephone [facility] [address] [place] [address] Enrique Corral, RAVINDER 05/03/2025 Telephone [facility] Orthopaedic [facility] [address] [facility] 6th [place] [address] [place] [address] Lena Sun MS from Last 3 Months Immunizations Immunization Administration Dates Next Due Tdap 04/22/2025,10/14/2023,02/15/2022 ZOSTER Recombinant 10/14/2023 Surgical History Surgery Date [...] making you feel afraid or unsafe? Denies 04/22/2025 Sex and Gender Information Value Date Recorded Sex Assigned at Not on file Legal Sex Male 10:38 AM TELEVISION OPERATOR Gender Identity Male 10/31/2024 2:37 PM TELEVISION OPERATOR Sexual Orientation Not on file Obstetrics History Last Filed Vital Signs Vital Sign Reading Time Taken Comments Blood Pressure 163/92 05/24/2025 8:18 AM CDT Pulse 59 05/24/2025 8:18 AM CDT Temperature 36.2 C (97.1 F) 05/24/2025 8:18 AM CDT Respiratory Rate 18 05/24/2025 8:18 AM CDT Oxygen Saturation 96% 05/24/2025 8:18 AM CDT Inhaled Oxygen Concentration - - Weight 83 kg (183 lb) 05/24/2025 8:18 AM CDT Height 172.5 cm (5' 7.9) 05/24/2025 8:18 AM CDT Body Mass Index 27.91 05/24/2025 8:18 AM CDT Plan of Treatment Health Maintenance Due Date [...] of 2) 12/09/2023 10/14/2023 Influenza Vaccine (#1) 2025 eGFR 11/21/2025 11/21/2024, 12/0 01/2024, 07/26/2020, Additional history exists Fall Risk Assessment 04/23/2026 04/23/2025 Lipid Panel 05/12/2026 05/12/2025, 03/0 04/2025, 01/10/2024, Additional history exists DTaP/Tdap/Td Vaccine (4 - Td or Tdap) 04/22/2035 04/22/2025, 10/14/2023, 02/15/2022 Medical Devices Implanted Type Area Shoe Stitcher Odd Device Identifier Shelf Expiration Date Model / Serial / Lot Shoulder Replacement Left: Shoulder Screws Right: Ankle [employer] [id number] 46mm Modular Dual Mobility Primary Hip F Liner Acetabular Cocr - [id number] Implanted:Qty: 1 on 07/25/2020 by Michael Bruno MD at [facility] Right: Hip [employer] 06/22/2025 [id number] / / [id number] [employer] 702-04-58f Shell Acetabular Trident Ii Tritanium F Od58mm Hip 5 Screw Hole Cluster Sterile - [id number] Implanted:Qty: 1 on 07/25/2020 by Michael Bruno MD at [facility] Right: Hip [employer] [id number] 01/18/2025 702-04-58F / / [id number] [employer] [id number] Screw Bone Trident Ii L50mm Od6.5mm Low Profile Hexagonal Sterile - [id number] Implanted:Qty: 1 on 07/25/2020 by Michael Bruno MD at [facility] Right: Hip [employer] [id number] 07/15/2024 5956-2579 / / 4AC [employer] [id number] Screw Bone Trident Ii L40mm Od6.5mm Low Profile Hexagonal Sterile - [id number] Implanted:Qty: 1 on 07/25/2020 by Michael Bruno MD at [facility] Right: Hip [employer] [id number] 08/04/2024 8280-8892 / / [id number] [employer] [id number] Screw Bone Trident Ii L40mm Od6.5mm Low Profile Hexagonal Sterile - [id number] Implanted:Qty: 1 on 07/25/2020 by Michael Bruno MD at [facility] Right: Hip [employer] [id number] 08/04/2024 9826-6888 / / [id number] [employer] [id number] Screw Bone Trident Ii L25mm Od6.5mm Low Profile Hexagonal Sterile - [id number] Implanted:Qty: 1 on 07/25/2020 by Michael Bruno MD at [facility] Right: Hip [employer] [id number] 10/12/2024 9262-3226 / / [id number] [employer] [id number] Mobile Bearing Hip Yazidi 46mm 52mm 28mm 8.9mm Hip - [id number] Implanted:Qty: 1 on 07/25/2020 by Michael Bruno MD at [facility] Right: Hip [employer] DUP [id number] 11/08/2024 [id number] / / [id number] [employer] 1781-6540 Accolade 114mm 37mm Modular Hip 127d 7 Taper Stem Femoral Sterile - [id number] Implanted:Qty: 1 on 07/25/2020 by Michael Bruno MD at [facility] Right: Hip [employer] [id number] 05/18/2025 5197-0156 / / [id number] [employer] 6570-0-228 V40 28mm Hip +4mm Offset Taper Head Femoral Biolox Delta - [id number] Implanted:Qty: 1 on 07/25/2020 by Michael Bruno MD at [facility] Right: Hip [employer] [id number] 05/29/2025 6570-0-228 / / [id number] [employer] 2.3mm 14mm Nontoggle Hexagonal Cortical Screw Bone Titanium Co-N2314 - [id number] Implanted:Qty: 1 on 07/26/2022 by Kadeem Salazar MD at [facility] Left: Clavicle [employer] [id number] / / [employer] [id number] 11mm 12 Hole Clavicle Left Distal Superior Plate Bone 70-0112 - [id number] Implanted:Qty: 1 on 07/26/2022 by Kadeem Salazar MD at [facility] Left: Clavicle [employer] 70-0112 / / Description:[employer] 101X1 4MM 11MM 12 HOLE CLAVICLE LEFT DISTAL SUPERIOR PLATE BONE 70-0112 - [id number] [employer] 3.5mm 12mm Hexalobe Screw Bone Titanium Nonsterile Small Fragment [id number] - [id number] Implanted:Qty: 2 on 07/26/2022 by Kadeem Salazar MD at [facility] [place] Left: Clavicle [employer] [id number] / / [employer] 3.5mm 14mm Hexalobe Screw Bone Titanium Nonsterile Small Fragment 30-0258 - [id number] Implanted:Qty: 5 on 07/26/2022 by Kadeem Salazar MD at [facility] [place] Left: Clavicle [employer] 30-0258 / / [employer] 3.5mm 16mm Lock Hexalobe Screw Bone Titanium Nonsterile Small [id number] - [id number] Implanted:Qty: 1 on 07/26/2022 by Kadeem Salazar MD at [facility] Left: Clavicle [employer] [id number] / / [employer] 3.5mm 14mm Locking Hexalobe Elbow Screw Bone Sterile 30-0235-S - [id number] Implanted:Qty: 2 on 07/26/2022 by Kadeem Salazar MD at [facility] Left: Clavicle [employer] 30-0235-S / / [employer] Comprehensive Taper Adapter 25mm Mini Baseplate Glenoid Reverse [id number] - [id number] Implanted:Qty: 1 on 11/20/2024 at [facility] Right: Shoulder [employer] 03/08/2034 [id number] / / [id number] [employer] Comprehensive 6.5mm 25mm Central Hexagonal 3.5mm Screw Bone 400080 - [id number] Implanted:Qty: 1 on 11/20/2024 at [facility] Right: Shoulder [employer] 09/15/2034 [id number] / / [id number] [employer] Comprehensive 4.75mm 30mm Fix Angle Lock Hexagonal 3.5mm Screw 034865 - [id number] Implanted:Qty: 1 on 11/20/2024 at [facility] Right: Shoulder [employer] 10/12/2034 043136 / / [id number] [employer] Comprehensive Versa-Dial 36mm Glenosphere Color Coded Shoulder +3 004227 - [id number] Implanted:Qty: 1 on 11/20/2024 at [facility] Right: Shoulder [employer] 10/01/2034 890749 / / [id number] [employer] Comprehensive 4.75mm 30mm Fix Angle Lock Hexagonal 3.5mm Screw 894953 - [id number] Implanted:Qty: 1 on 11/20/2024 at [facility] Right: Shoulder [employer] 10/12/2034 320225 / / [id number] [employer] Comprehensive 4.75mm 15mm Fix Angle Lock Hexagonal 3.5mm Screw 350905 - [id number] Implanted:Qty: 1 on 11/20/2024 at [facility] Right: Shoulder [employer] 07/02/2034 [id number] / / [id number] [employer] Stem Humeral Shoulder Reverse Standard Size 14 Identity [id number] - [id number] Implanted:Qty: 1 on 11/20/2024 at [facility] Right: Shoulder [employer] 11/18/2033 [id number] / / [id number] [employer] Humeral Tray Neutral -6mm Ext Sahtnem6 - [id number] Implanted:Qty: 1 on 11/20/2024 at [facility] Right: Shoulder [employer] 08/17/2034 [id number] / / [id number] [employer] Bearing Humeral Comprehensive Vivacit-E +3mm Od36mm Shoulder Reverse Retentive [id number] - [id number] Implanted:Qty: 1 on 11/20/2024 at [facility] Right: Shoulder [employer] 05/25/2029 [id number] / / [id number] Explanted Type Area Shoe Stitcher Odd Device Identifier Shelf Expiration Date Model / Serial / Lot [employer] 3.5mm 12mm Hexalobe Screw Bone Titanium Nonsterile Small Fragment [id number] - [id number] Explanted:Qty: 1 on 07/26/2022 at [facility] Left: Clavicle [employer] [id number] / / Procedures Procedure Name Priority Date/Time Associated Diagnosis Comments XR PELVIS 3 OR MORE VIEWS Schedule Routine, Read Routine (OP Routine) 06/01/2025 8:18 AM CDT Closed fracture of superior ramus of pubis, initial encounter (HCC) CT CHEST WO CONTRAST Schedule Routine, Read Routine (OP Routine) 05/24/2025 8:09 AM CDT Solitary pulmonary nodule POCT LIPID PANEL Routine 05/12/2025 1:17 PM CDT Hyperlipidemia, unspecified hyperlipidemia type EGFR Routine 11/21/2024 4:30 AM TELEVISION OPERATOR from Last 3 Months or Most Recently Relevant to Health Maintenance Results * XR Pelvis 3 or More Views (06/01/2025 8:18 AM CDT) Anatomical Region Laterality Modality Pelvis, Body N/A Computed Radiogr aphy 06/01/2025 9:55 AM CDT Impressions 06/01/2025 12:15 PM CDT Healing mildly displaced fracture of the right superior and inferior pubic ramus and likely healing nondisplaced right sacral ala fracture. Dictated by: Jie Mujica MD The radiology attending physician has personally reviewed this study, and had reviewed and/or edited this written report and agrees with it. Electronically signed by: Angel Saenz M.D. Narrative 06/01/2025 12:15 PM CDT EXAMINATION: XR PELVIS 3 OR MORE VIEWS HISTORY: Hip pain FINDINGS: 3 radiographs of the pelvis are submitted. Comparison is made to an examination dated 04/22/2025. There is a right hip arthroplasty. There is a healing mildly displaced fracture of the right superior and inferior pubic ramus. There is a likely healing nondisplaced right sacral ala fracture. There is mild left hip osteoarthritis. Procedure Note Angel Saenz MD PhD - 06/01/2025 EXAMINATION: XR PELVIS 3 OR MORE VIEWS HISTORY: Hip pain FINDINGS: 3 radiographs of the pelvis are submitted. Comparison is made to an examination dated 04/22/2025. There is a right hip arthroplasty. There is a healing mildly displaced fracture of the right superior and inferior pubic ramus. There is a likely healing nondisplaced right sacral ala fracture. There is mild left hip osteoarthritis. IMPRESSION: Healing mildly displaced fracture of the right superior and inferior pubic ramus and likely healing nondisplaced right sacral ala fracture. Dictated by: Jie Mujica MD The radiology attending physician has personally reviewed this study, and had reviewed and/or edited this written report and agrees with it. Electronically signed by: Angel Saenz M.D. us Bari Colvin MD IMG XR PROCEDURES Final R esult * CT Chest WO Contrast (05/24/2025 8:09 AM CDT) Anatomical Region Laterality Modality Body N/A Computed Tomogra phy 05/24/2025 8:23 AM CDT Impressions 05/24/2025 5:36 PM CDT 4 mm nodule within the right middle lobe likely represents a verna-fissural lymph node. Dictated by: Jyoti Pineda MD The radiology attending physician has personally reviewed this study, and had reviewed and/or edited this written report and agrees with it. Electronically signed by: Edwina Odom M.D. Narrative 05/24/2025 5:36 PM CDT EXAMINATION: CT CHEST WO CONTRAST HISTORY: Lung nodule follow-up TECHNIQUE: Transaxial computed tomographic images of the chest were obtained without intravenous contrast according to the standard protocol COMPARISON: None FINDINGS: No suspicious supraclavicular, axillary or mediastinal lymphadenopathy. Calcified mediastinal hilar lymph nodes are in keeping with old granulomatous disease. 4 mm nodule within the right middle lobe seen on series 4 image 71 along the minor fissure, likely representing a fissural lymph node. Calcified granuloma right lung base. No consolidation, pleural effusion or pneumothorax. The heart is mildly enlarged. Multivessel coronary artery disease. The thoracic aorta is normal in caliber. Imaged upper abdomen is unremarkable. No suspicious osseous lesions. Mild compression deformity of the T8 vertebral body. Procedure Note Edwina Odom MD - 05/24/2025 EXAMINATION: CT CHEST WO CONTRAST HISTORY: Lung nodule follow-up TECHNIQUE: Transaxial computed tomographic images of the chest were obtained without intravenous contrast according to the standard protocol COMPARISON: None FINDINGS: No suspicious supraclavicular, axillary or mediastinal lymphadenopathy. Calcified mediastinal hilar lymph nodes are in keeping with old granulomatous disease. 4 mm nodule within the right middle lobe seen on series 4 image 71 along the minor fissure, likely representing a fissural lymph node. Calcified granuloma right lung base. No consolidation, pleural effusion or pneumothorax. The heart is mildly enlarged. Multivessel coronary artery disease. The thoracic aorta is normal in caliber. Imaged upper abdomen is unremarkable. No suspicious osseous lesions. Mild compression deformity of the T8 vertebral body. IMPRESSION: 4 mm nodule within the right middle lobe likely represents a verna-fissural lymph node. Dictated by: Jyoti Pineda MD The radiology attending physician has personally reviewed this study, and had reviewed and/or edited this written report and agrees with it. Electronically signed by: Edwina Odom M.D. Jemma Marroquin EVENT PROMOTIONS COORDINATOR IMG CT PROCEDURES Final Result * (ABNORMAL) POCT lipid panel (05/12/2025 1:17 PM CDT) [facility] Cholesterol, POC 194 <200 MG/DL HDL, POC 39(A) >=40 mg/dL Triglycerides, POC 334(A) <=149 mg/dL LDL Cholesterol POC 89 <=129 mg/dL Chol/HDL Ratio, POC 5.0 NONE Non-HDL Cholesterol, POC 156 NONE mg/dL Cholesterol Total, POC 194 30 - 199 mg/dL Capillary blood 05/12/2025 1 :17 PM CDT Carlos Harris MD POINT OF CARE TEST PEGGY OROZCO Final Result * eGFR (11/21/2024 4:30 AM TELEVISION OPERATOR) [facility] eGFR >90 >=60 mL/min/1. 73 m2 Comment: [...] last reviewed 2021. Blood 11/21/2024 4:30 AM TELEVISION OPERATOR 11/21/2024 4:36 AM TELEVISION OPERATOR Morris Disla MD LAB BLOOD ORDERAB LES Final Result [facility] [id number] [facility]. Department [place] [address] from Last 3 Months or Most Recently Relevant to Health Maintenance Insurance MEDICARE [facility] [employer]ARE [employer] Member Subscriber Plan / Payer (Ef fective 2021-) Name:Elijah German Relation to Subscriber:Self Name:Elijah German Payer ID:[id number] Group ID:Not on file Type:COMMERCIAL Address: [facility] [address] [place], [place] MEDICARE [employer] Advance Directives For more information, please contact: [phone] * Full Code (Latest Code Status on File) Date Activated Date Inactivated Comments 04/22/2025 11:11 PM 04/23/2025 9:13 PM * Full Code Date Activated Date Inactivated Comments 11/20/2024 4:14 PM 11/21/2024 2:41 PM * Full Code Date Activated Date Inactivated Comments 07/24/2020 9:35 PM 07/26/2020 8:39 PM Care Teams Micro Paleontologist Relationship Specialty Start Date End Date Edward De León MD PCP - General 12/27/17 Michael Bruno MD [address] [facility] [address] [place] [address] Consulting Physician Orthopedic Surgery 07/26/20
== END 2025-07-29 09:30 | disposition home or self-care (01) ==
PROVIDERS: PCP Family Medicine; Visit Provider Nurse Practitioner Family
DX: R42 Dizziness and giddiness (principal); H53.9 Unspecified visual disturbance; Z71.1 Person with feared health complaint in whom no diagnosis is made; I10 Essential (primary) hypertension; E78.5 Hyperlipidemia, unspecified
CPT/HCPCS: 70553; A9577